=== PATIENT | male | born 1950 | race Caucasian/White ===

== ENCOUNTER 2020-10-03 12:38 | Outpatient (CLI) | payer MEDICARE, MEDICAID, SELFPAY ==
[2020-10-03 13:40] LABS: Basophils Absolute Auto 0.1 K/mm3 (0.0-0.1); Basophils Percent Auto 0.8 % (0.2-1.2); Eosinophils Absolute Auto 0.2 K/mm3 (0-0.3); Eosinophils Percent Auto 1.2 % (0-4.4); Hematocrit 36.1 % (42.0-52.0); Hemoglobin 11.5 g/dL (14.0-18.0); Immature Granulocyte Absolute 0.07 K/mm3 (0.00-0.031); Immature Granulocyte Percent A 0.5 % (0-0.5); Lymphocytes Absolute Auto 1.49 K/mm3 (0.9-3.2); Lymphocytes Percent Auto 11.4 % (18.3-44.2); Mean Corpuscular HGB Conc 31.9 g/dl (32-36); Mean Corpuscular Hemoglobin 29.7 pg (26-34); Mean Corpuscular Volume 93.3 fl (80-100); Mean Platelet Volume 10.5 fl (7.4-10.4); Monocytes Absolute Auto 0.9 K/mm3 (0.1-0.6); Monocytes Percent Auto 7.1 % (2.6-8.5); Neutrophils Absolute Auto 10.3 K/mm3 (1.3-6.7); Platelet Count Result 193 k/mm3 (150-375); Red Blood Count 3.87 M/mm3 (4.6-6.20); Red Cell Distribution Width 13.2 % (11.5-14.5)
[2020-10-03 14:41] LABS: Alanine Aminotransferase 19 U/L (4-50); Albumin Level 3.9 g/dL (3.5-5.1); Alkaline Phosphatase 97 U/L (38-126); Anion Gap 10 mmol/L (8-16); Aspartate Amino Transferase 24 U/L (17-59); Bilirubin,Total 0.2 mg/dL (0.2-1.3); Blood Urea Nitrogen 62 mg/dL (9-20); Carbon Dioxide 19 mmol/L (22-30); Chloride 110 mmol/L (98-107); Estimated Glomerular Filt Rate 17; Glucose 334 mg/dL (75-110); Sodium 139 mmol/L (137-145)
[2020-10-03 14:42] LABS: Potassium 5.8 mmol/L (3.4-5.0)
== END 2020-10-03 12:39 | disposition home or self-care (01) ==
PROVIDERS: PCP Family Medicine; Visit Provider Internal Medicine Cardiovascular Disease
DX: N17.9 Acute kidney failure, unspecified (principal); E11.22 Type 2 diabetes mellitus with diabetic chronic kidney disease; N18.4 Chronic kidney disease, stage 4 (severe)
CPT/HCPCS: 36415; 80053; 85025

== ENCOUNTER 2021-01-08 10:03 | Emergency (ER) | payer MEDICARE, MEDICAID, SELFPAY ==
--- NOTE | ~2021-01-08 | CT_ITS ---
EXAMINATION: CT brain wo con DATE: 01/08/2021 10:33 INDICATION: Confusion. Syncope. TECHNIQUE: Computed tomography (CT) of the head was performed without intravenous contrast. The mA wa s adjusted according to patient size. Iterative reconstruction technique was employed. The dose-lengt h product was 605.33 mGy-cm. COMPARISON: Head CT 03/25/2018 FINDINGS: There are scattered areas of low attenuation in the cerebral white matter. There is a subdu ral hematoma overlying right frontal and parietal lobes with maximum thickness of 9 mm. The hematoma is mixed hyperdense and hypodense relative to gage matter. There is a small focus of hyperdense acute subarachnoid hemorrhage in a medial left frontal lobe sulcus. There is a small volume of acute hyper dense extra-axial hematoma to the left of the frontal falx cerebri may be subdural or subarachnoid. T here is no acute ischemic infarct or abnormal mass lesion. The ventricles are normal in size. There i s dependent fluid in left maxillary sinus. There are likely changes of ocular lens replacement surger ies. The mastoid air cells are normal. IMPRESSION: 1. Acute versus subacute subdural hematoma overlying right frontal and parietal lobes with maximum th ickness of 9 mm. 2. Acute subarachnoid hemorrhage in a left parietal lobe sulcus. 3. Acute subdural versus subarachnoid hemorrhage to the left of the frontal falx. 4. Mild nonspecific cerebral white matter disease, which likely represents chronic small vessel ische yolis disease. 5. I discussed these results with Dr. Kaplan. Reviewed, dictated and finalized at location A. IMPRESSION: 1. Acute versus subacute subdural hematoma overlying right frontal and parietal lobes with maximum thickness of 9 mm. 2. Acute subarachnoid hemorrhage in a left parietal lobe sulcus. 3. Acute subdural versus subarachnoid hemorrhage to the left of the frontal fal x. 4. 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 5. I discussed these results with Dr. Kaplan.
--- NOTE | ~2021-01-08 | XR_ITS ---
EXAMINATION: XR chest 2V EXAM DATE: 01/08/2021 10:36 INDICATION: syncope/wheezing . TECHNIQUE: Frontal and lateral projections of the chest obtained and reviewed. Comparison is made to prior examination from 07/31/2018. FINDINGS: Sternotomy wires are present without findings to suggest sternal dehiscence. Valve replace ment probably aortic valve. No confluent consolidation, pneumothorax or pleural effusion suspected. T here are bony degenerative changes. IMPRESSION: No acute cardiopulmonary findings. Reviewed, dictated and finalized at location B.
[2021-01-08 09:54] VITALS: BP 160/80; PULSE 74; RESP 25; TEMP 36.6; O2SAT 95
--- NOTE | 2021-01-08 10:02 | ECG_ITS ---
Measurements Intervals [place] Rate: 74 P: 3 WI: 199 QRS: -15 QRSD: 149 T: 14 QT: 414 QTc: 460 Interpretive Statements SINUS RHYTHM LEFT BUNDLE BRANCH BLOCK BASELINE ARTIFACT- I, II, III, AVR, AVL, AVF, V1-V6 ABNORMAL ECG Electronically Signed On 01-08-2021 11:48:35 CDT by Everardo Malloy D.O.
[2021-01-08 10:12] VITALS: PULSE 74; RESP 21; O2SAT 97
--- NOTE | 2021-01-08 10:12 | PC.NURSE ---
BS 154 in ED
[2021-01-08 10:15] LABS: Glucose Point of Care 154 mg/dl (65-105)
[2021-01-08 10:53] VITALS: BP 153/94; PULSE 75; RESP 18; O2SAT 100
--- NOTE | 2021-01-08 10:55 | ED.AMS ---
HPI - Altered Mental Status General Chief Complaint: Altered Mental Status Stated Complaint: FALL Time Seen by Provider: 01/08/21 10:04 History of Present Illness HPI narrative: Patient is a 7-year-old male who presents ER after being found face down in his lawn. Patient was oriented x1 for EMS with normal Accu-Chek. Upon arrival here patient is awake alert and oriented x3. Reports he went to the grocery store to buy groceries and eat some candy bars. Unsure why he lost consciousness. Does not remember tripping or falling. No visible evidence of trauma to the head. He is not on any blood thinners outside of an aspirin. Denies nausea/vomiting/shortness of breath. No weakness in arm or leg. No change in vision Related Data Allergies Allergy/AdvReac Type Severity Reaction Status Date / Time No Known Allergies Allergy Unverified 03/25/18 02:28 Review of Systems Review of Systems: All systems reviewed & are unremarkable except as noted in HPI and below Constitutional: Constitutional: Denies chills, Denies fever(s) and Denies weakness Eyes: Eyes: Denies change in vision and Denies photophobia Cardiovascular: Cardiovascular: Denies chest pain, Denies rapid heart rate and Denies radiating jaw, neck or arm pain Respiratory: Respiratory: Denies cough and Denies dyspnea Gastrointestinal: Gastrointestinal: Denies abdominal pain, Denies nausea and Denies vomiting Neurologic: Denies dizziness, Reports syncope, Denies headache(s), Denies focal weakness and Denies numbness PMFSH Past Medical History Medical History (Updated 01/08/21 @ 16:56 by Baljeet Kaplan MD) Aortic aneurysm CHF (congestive heart failure) Diabetes Hypercholesterolemia Hypertension Surgical History Surgical History (Updated 01/08/21 @ 10:59 by Baljeet Kaplan MD) History of open heart surgery Social History Social History (Updated 01/08/21 @ 10:59 by Baljeet Kaplan MD) Substance use: never Gender identity (if verbalized by the patient): Male Exam Narrative: Exam Narrative: GENERAL: Well-appearing, well-nourished, and in no acute distress. HEAD: Normocephalic, atraumatic. EYES: PERRLA and EOMI. ENT: Mucous membranes moist. Moderate contusion to the tongue. CHEST: Clear to auscultation. No respiratory distress. HEART: Regular rate and rhythm. Normal peripheral pulses. ABDOMEN: Soft, nontender, nondistended EXTREMITIES: Normal range of motion. No edema. SKIN: Warm, dry, no rash. NEURO: No focal deficits. Alert and oriented x3. PSYCH: Normal mood and affect. Course Course Emergency Course: Accepted for transfer to [facility] for further treatment and care by neurosurgery. He has an inpatient bed. Patient stable. He did receive some fentanyl for low back pain and Zofran for nausea just prior to transfer. Vital Signs Vital signs: Vital Signs Temperature 97.8 F 01/08/21 09:54 Pulse Rate 74 01/08/21 09:54 Respiratory Rate 25 H 01/08/21 09:54 Blood Pressure 160/80 H 01/08/21 09:54 Pulse Oximetry 95 01/08/21 09:54 Temperature 97.8 F 01/08/21 09:54 Pulse Rate 67 01/08/21 12:53 Respiratory Rate 17 01/08/21 12:53 Blood Pressure 157/88 H 01/08/21 12:53 Pulse Oximetry 98 01/08/21 12:53 MDM - Altered Mental Status Lab Data Result diagrams: 01/08/21 10:59 01/08/21 10:59 Labs: Lab Results 01/08/21 01/08/21 01/08/21 Range/Units 10:11 10:59 10:59 WBC 10.8 H (4.5-10.0) K/mm3 RBC 3.56 L (4.6-6.20) M/mm3 Hgb 10.5 L (14.0-18.0) g/dL Hct 33.9 L (42.0-52.0) % MCV 95.2 (80-100) fl MCH 29.5 (26-34) pg MCHC 31.0 L (32-36) g/dl RDW 13.6 (11.5-14.5) % Plt Count 157 (150-375) k/mm3 MPV 9.9 (7.4-10.4) fl Immature Gran % (Auto) 1.6 H (0-0.5) % Neut % (Auto) 71.7 (45.5-73.1) % Lymph % (Auto) 14.0 L (18.3-44.2) % [place] % (Auto) 8.7 H (2.6-8.5) % Eos % (Auto) 3.2 (0-4.4) % Baso % (Auto) 0.8 (0.2-1
[2021-01-08 11:07] LABS: Basophils Absolute Auto 0.1 K/mm3 (0.0-0.1); Basophils Percent Auto 0.8 % (0.2-1.2); Eosinophils Absolute Auto 0.4 K/mm3 (0-0.3); Eosinophils Percent Auto 3.2 % (0-4.4); Hematocrit 33.9 % (42.0-52.0); Hemoglobin 10.5 g/dL (14.0-18.0); Immature Granulocyte Absolute 0.17 K/mm3 (0.00-0.031); Immature Granulocyte Percent A 1.6 % (0-0.5); Lymphocytes Absolute Auto 1.52 K/mm3 (0.9-3.2); Mean Corpuscular Hemoglobin 29.5 pg (26-34); Mean Corpuscular Volume 95.2 fl (80-100); Mean Platelet Volume 9.9 fl (7.4-10.4); Monocytes Absolute Auto 0.9 K/mm3 (0.1-0.6); Monocytes Percent Auto 8.7 % (2.6-8.5); Neutrophils Absolute Auto 7.8 K/mm3 (1.3-6.7); Neutrophils Percent Auto 71.7 % (45.5-73.1); Platelet Count Result 157 k/mm3 (150-375); Red Blood Count 3.56 M/mm3 (4.6-6.20); Red Cell Distribution Width 13.6 % (11.5-14.5); White Blood Count 10.8 K/mm3 (4.5-10.0)
[2021-01-08 11:17] LABS: Alanine Aminotransferase 30 U/L (4-50); Albumin Level 3.9 g/dL (3.5-5.1); Alkaline Phosphatase 100 U/L (38-126); Anion Gap 10 mmol/L (8-16); Aspartate Amino Transferase 48 U/L (17-59); Bilirubin,Total 0.3 mg/dL (0.2-1.3); Blood Urea Nitrogen 48 mg/dL (9-20); Calcium 9.1 mg/dL (8.4-10.2); Carbon Dioxide 18 mmol/L (22-30); Chloride 111 mmol/L (98-107); Estimated CRCL calculation 23 ml/min; Estimated Glomerular Filt Rate 20; Glucose 173 mg/dL (75-110); Potassium 5.8 mmol/L (3.4-5.0); Sodium 139 mmol/L (137-145)
[2021-01-08 11:18] LABS: INR 1.1; Prothrombin Time 14.1 Seconds (11.1-14.7)
[2021-01-08 11:19] LABS: Partial Thromboplastin Time 26.9 SECONDS (22.3-36.8)
[2021-01-08 11:55] VITALS: BP 133/75; PULSE 71; RESP 22; O2SAT 98
[2021-01-08 12:53] VITALS: BP 157/88; PULSE 67; RESP 17; RESP 26; O2SAT 98
[2021-01-08] MEDS: MORPHINE SULFATE (*CRX) 4 MG/ML INJ IV PUSH (13:01)
[2021-01-08] MEDS: ONDANSETRON INJ 4 MG/2 ML VIAL IV PUSH (14:01)
== END 2021-01-08 14:02 | disposition short-term general hospital (02) ==
LOC: ANHED 10:16
PROVIDERS: Emergency Provider Emergency Medicine; PCP Family Medicine
DX: I62.00 Nontraumatic subdural hemorrhage, unspecified (principal); I60.9 Nontraumatic subarachnoid hemorrhage, unspecified; I50.9 Heart failure, unspecified; E78.00 Pure hypercholesterolemia, unspecified; I10 Essential (primary) hypertension; E11.9 Type 2 diabetes mellitus without complications; R90.82 White matter disease, unspecified; Z79.82 Long term (current) use of aspirin; I44.7 Left bundle-branch block, unspecified
CPT/HCPCS: 36415; 70450; 71046; 80053; 82948; 85025; 85610; 85730; 93005; 96374; 96375; 99291; J2270; J2405

== ENCOUNTER 2021-04-03 11:23 | Outpatient (CLI) | payer MEDICARE, MEDICAID, SELFPAY ==
--- NOTE | ~2021-04-03 | XR_ITS ---
XR chest 2V DATE: 04/03/2021 11:50 INDICATION: Type 2 diabetes mellitus. Edema of both lower extremities. Chronic kidney stage IV. TECHNIQUE: PA and lateral views COMPARISON: 01/08/2021 2 view chest FINDINGS: Status post sternotomy and cardiac valve replacement. Heart size is within normal range. Is aortic arch calcification. No hilar or mediastinal enlargement. No pulmonary infiltrate or consolidation, pleural effusion or pulmonary vascular congestion or pneumo thorax. Diffuse idiopathic skeletal hyperostosis of the thoracic spine. Osteopenia. 2. Calcified faceted gallstones are noted. IMPRESSION: Status post cardiac valve replacement Aortic atherosclerosis No active pulmonary disease Cholelithiasis Reviewed, dictated and finalized at location B.
== END 2021-04-03 11:24 | disposition home or self-care (01) ==
LOC: ANHIMG 11:31
PROVIDERS: PCP Physician Assistant; Visit Provider Physician Assistant
DX: N18.4 Chronic kidney disease, stage 4 (severe) (principal); E11.22 Type 2 diabetes mellitus with diabetic chronic kidney disease; R60.0 Localized edema; Z95.2 Presence of prosthetic heart valve; I70.0 Atherosclerosis of aorta; K80.20 Calculus of gallbladder without cholecystitis without obstruction; M48.14 Ankylosing hyperostosis [Forestier], thoracic region
CPT/HCPCS: 71046

== ENCOUNTER 2021-04-10 18:08 | Inpatient (IN) | payer MEDICARE, MEDICAID, SELFPAY ==
[2021-04-10] VITALS (18 sets, daily range): BP systolic 119–149; BP diastolic 65–109; PULSE 75–101; RESP 16–24; TEMP 36.3–36.7; O2SAT 94–100; BMI 31.9
--- NOTE | ~2021-04-10 | XR_ITS ---
EXAMINATION: XR chest 2V EXAM DATE: 04/10/2021 18:54 INDICATION: SOB, HX SYNCOPE, CHF, HTN, DIABETIC . TECHNIQUE: Frontal and lateral projections of the chest obtained and reviewed. Comparison is made to prior examination from 04/03/2021. FINDINGS: Sternotomy, cardiac valve replacement. No confluent consolidation, pneumothorax or pleural effusion suspected. Couple peripherally calcified right upper quadrant densities probably gallstones . There are mild bony degenerative changes. IMPRESSION: No acute cardiopulmonary findings. Reviewed, dictated and finalized at location G.
--- NOTE | ~2021-04-10 | US_ITS ---
EXAMINATION: US renal BI DATE: 04/11/2021 12:53 INDICATION: Chronic kidney disease. TECHNIQUE: Multiple ultrasound grayscale images of the kidneys were obtained. COMPARISON: Ultrasound kidneys 10/21/2017 FINDINGS: The right kidney measures 9.4 x 5.4 x 5.6 cm. The left kidney measures 9.0 x 4.4 x 5.2 cm. The kidney s demonstrate normal parenchymal echogenicity. There is a 10 mm cyst in left kidney. There is no hydr onephrosis. The bladder is normal. IMPRESSION: 1. Normal kidney sizes. No hydronephrosis. Reviewed, dictated and finalized at location A.
--- NOTE | 2021-04-10 18:25 | ECG_ITS ---
Measurements Intervals [place] Rate: 90 P: 25 SD: 235 QRS: -21 QRSD: 140 T: 130 QT: 366 QTc: 448 Interpretive Statements SINUS RHYTHM WITH FIRST DEGREE AV BLOCK LEFT BUNDLE BRANCH BLOCK ABNORMAL ECG Electronically Signed On 04-10-2021 18:58:00 CDT by Everardo Malloy D.O.
[2021-04-10 18:48] LABS: Basophils Absolute Auto 0.1 K/mm3 (0.0-0.1); Eosinophils Absolute Auto 0.3 K/mm3 (0-0.3); Eosinophils Percent Auto 3.1 % (0-4.4); Hematocrit 33.7 % (42.0-52.0); Hemoglobin 10.6 g/dL (14.0-18.0); Immature Granulocyte Absolute 0.04 K/mm3 (0.00-0.031); Immature Granulocyte Percent A 0.4 % (0-0.5); Lymphocytes Absolute Auto 1.71 K/mm3 (0.9-3.2); Lymphocytes Percent Auto 16.1 % (18.3-44.2); Mean Corpuscular HGB Conc 31.5 g/dl (32-36); Mean Corpuscular Hemoglobin 30.5 pg (26-34); Mean Corpuscular Volume 96.8 fl (80-100); Mean Platelet Volume 9.7 fl (7.4-10.4); Monocytes Percent Auto 9.8 % (2.6-8.5); Neutrophils Absolute Auto 7.4 K/mm3 (1.3-6.7); Neutrophils Percent Auto 69.6 % (45.5-73.1); Platelet Count Result 182 k/mm3 (150-375); Red Blood Count 3.48 M/mm3 (4.6-6.20); Red Cell Distribution Width 13.5 % (11.5-14.5); White Blood Count 10.6 K/mm3 (4.5-10.0)
[2021-04-10 18:54] LABS: Anion Gap 11 mmol/L (8-16); Blood Urea Nitrogen 66 mg/dL (9-20); Calcium 9.1 mg/dL (8.4-10.2); Carbon Dioxide 25 mmol/L (22-30); Chloride 105 mmol/L (98-107); Estimated CRCL calculation 18 ml/min; Estimated Glomerular Filt Rate 15; Glucose 220 mg/dL (65-110); Potassium 4.9 mmol/L (3.4-5.0); Sodium 141 mmol/L (137-145)
--- NOTE | 2021-04-10 20:58 | PC.NURSE ---
Pt restarted on 20 mg lasix this week
--- NOTE | 2021-04-10 21:03 | PC.NURSE ---
Called lab to confirm they are adding on troponin and BNP
[2021-04-10 21:16] LABS: NT Pro B Type Natriuretic Pept 2480 pg/mL (5-100); Troponin I 0.068 ng/mL (0.000-0.034)
--- NOTE | 2021-04-10 21:26 | ED.GENADULT ---
HPI - General Adult General Chief complaint: Shortness of Breath/Dyspnea Stated complaint: diff breathing Time Seen by Provider: 04/10/21 20:33 Source: RN notes reviewed History of Present Illness HPI narrative: Patient presents emergency department from home for shortness of breath. Patient states that over the past 2 days has been feeling short of breath worse with activity and laying down flat he states that with this he has had associated swelling in his bilateral lower extremities patient states he has a history of chronic renal insufficiency and may need dialysis he is followed by Dr. Cedeño and was recently started on Lasix. He states there is plan to put a shot in his left upper arm he states he does have intermittent feelings of chest heaviness across his chest and feels like he cannot get comfortable he denies having any cough he denies any fevers or chills abdominal pain nausea vomiting or any other symptoms Related Data Allergies Allergy/AdvReac Type Severity Reaction Status Date / Time No Known Allergies Allergy Verified 04/10/21 20:55 Review of Systems Review of Systems: Gen.: Denies fevers or chills Eyes: Denies eye pain or visual change ENT: Denies congestion Respiratory: See HPI CV: Reports chest pain GI: Denies abdominal pain nausea, emesis or diarrhea reports chronic renal insufficiency Musculoskeletal: Denies back pain or muscle pain Neuro: Denies numbness, tingling, weakness or focal weakness Skin: Denies rash Except as documented, all other systems reviewed and negative [facility] Past Medical History Medical History Aortic aneurysm CHF (congestive heart failure) Diabetes Hypercholesterolemia Hypertension Surgical History Surgical History (Updated 01/08/21 @ 10:59 by Baljeet Kaplan MD) History of open heart surgery Social History Social History Substance use: never Gender identity (if verbalized by the patient): Male Exam Narrative: APPEARANCE: No acute distress, nontoxic, resting in bed EYES: EOMI HEENT: Normocephalic, atraumatic, OMM RESPIRATORY: No respiratory distress Clear to auscultation bilaterally with no rhonchi wheezing or rales. CARDIOVASCULAR: Regular rate and rhythm without murmurs rubs or gallops. ABDOMINAL: Soft, nontender, nondistended, no rebound or guarding MUSCULOSKELETAl: Moves all extremities. No clubbing, cyanosis 3+ edema the bilateral lower extremities bilateral dorsalis pedis pulse 2+ NEURO: Awake and alert. Following commands, speech normal, no focal deficits SKIN:: Warm, dry. No rashes lesions or abrasions PSYCHIATRIC: Normal affect/mood, Course Course Emergency Course: Reviewed old records Called and discussed with Dr. Sarah Cedeño presentation work-up agrees with consult at this time this time no further diuretics tonight patient be evaluated by nephrology in the a.m. Discussed Dr. Grigsby presentation work-up agrees with admission Discussed with patient and family results of workup and diagnosis. Discussed need for admission. Patient and family understand and agree to current treatment plan Vital Signs Vital signs: Vital Signs Temperature 98.0 F 04/10/21 18:26 Pulse Rate 101 H 04/10/21 18:26 Respiratory Rate 20 04/10/21 18:26 Blood Pressure 147/81 H 04/10/21 18:26 Pulse Oximetry 98 04/10/21 18:26 Temperature 98.0 F 04/10/21 18:26 Pulse Rate 82 04/10/21 20:56 Respiratory Rate 19 04/10/21 20:52 Blood Pressure 133/69 04/10/21 20:52 Pulse Oximetry 100 04/10/21 20:52 Medical Decision Making Vital Signs Vital Signs: Vital Signs Temperature 98.0 F 04/10/21 18:26 Pulse Rate 101 H 04/10/21 18:26 Respiratory Rate 20 04/10/21 18:26 Blood Pressure 147/81 H 04/10/21 18:26 Pulse Oximetry 98 04/10/21 18:26 Temperature 98.0 F 04/10/21 18:26 Pulse Rate 82 04/10/21 20:56 Respir
[2021-04-10] MEDS: ASPIRIN 81 MG CHEWABLE TABLET 324 MG PO (22:24)
--- NOTE | 2021-04-10 23:48 | ADMGEN ---
This patient, Chris Pavon, was admitted to IMU Room 207-01 on 04/10/21 at 2325. Patient/family oriented to hospital policies and general routines including ID bracelet, bed and alarms, visiting hours, pain management, procedures, bathroom and other care routines, personal items, smoking policy, room service/diet, and visiting hours. Information on how to activate the Rapid Response Team has been discussed. Patient/Family are encouraged to report perceived risks to care and to ask questions if they do not understand what they are told or what they should do.
[2021-04-11] VITALS (13 sets, daily range): BP systolic 117–153; BP diastolic 59–78; PULSE 75–89; RESP 18–22; TEMP 35.6–36.4; O2SAT 97–100
--- NOTE | 2021-04-11 | ECHO_ITS ---
Patient Info Name: Chris Pavon Age: 70 years : 1950 Gender: Male Ht: 68 in Wt: 210 lbs BSA: 2.17 m2 HR: 84 bpm BP: 153 / 67 mmHg Technical Quality: Fair Exam Date: 04/11/2021 11:21 AM Exam Location: [facility] Pulmonary Exam Room: [facility] Patient Status: Inpatient Admit Date: 04/11/2021 Staff Ordering Physician: Kellee Grigsby DO Pelt Dropper: Yeimi Garcia RDCS Attending Provider: Kellee Grigsby DO Referring Physician: Seb MORALES; Exam Type: CA echo doppler color flow Study Info Indications - LEG SWELLING JUAREZ CAD S/P AVR Complete two-dimensional, color flow and Doppler transthoracic echocardiogram is performed. Summary 1. Complete two-dimensional, color flow and Doppler transthoracic echocardiogram is performed. 2. Left ventricular chamber dimension is normal. 3. There is mildly increased left ventricular wall thickness. 4. Left ventricular systolic function is normal, estimated at 55-60%. 5. Left ventricular septal wall motion is abnormal with septal motion related to bundle branch block. 6. The left ventricular diastolic function is grade I diastolic dysfunction. 7. E/e' 14 is mildly elevated. 8. Left atrial chamber dimension is mildly enlarged. 9. The mechanical aortic valve is not well visualized. 10. There is mild mitral valve regurgitation. 11. There is trace tricuspid valve regurgitation. 12. No pulmonary hypertension, estimated pulmonary arterial systolic pressure is 34 mmHg. Left Ventricle E/e' 14 is mildly elevated. Left ventricular systolic function is normal, estimated at 55-60%. Left ventricular chamber dimension is normal. There is mildly increased left ventricular wall thickness. Left ventricular septal wall motion is abnormal with septal motion related to bundle branch block. The left ventricular diastolic function is grade I diastolic dysfunction. Right Ventricle Right ventricular chamber dimension is normal. Right ventricular systolic function is normal. Left Atria Left atrial chamber dimension is mildly enlarged. Right Atria Right atrial chamber dimension is normal. Aortic Valve The mechanical aortic valve is not well visualized. There is no sclerosis of the mechanical aortic valve leaflets. There is no regurgitation of the mechanical aortic valve. Pulmonic Valve There is no pulmonic regurgitation. Mitral Valve There is no mitral valve stenosis. There is mild mitral valve regurgitation. Tricuspid Valve There is trace tricuspid valve regurgitation. No pulmonary hypertension, estimated pulmonary arterial systolic pressure is 34 mmHg. Pericardium/Pleural There is no pericardial effusion. Inferior Vena Cava Normal inferior vena cava with >50% collapse upon inspiration consistent with normal right atrial pressure, 5 mmHg. Aorta The aortic root size at the sinus of Valsalva is normal. Left Ventricular Outflow Tract Name Value Normal LVOT 2D LVOT Diameter 2.1 cm LVOT Doppler LVOT Peak Gradient 8 mmHg LVOT Mean Gradient 6 mmHg LVOT VTI 36 cm
[2021-04-11 02:11] LABS: Troponin I 0.079 ng/mL (0.000-0.034)
--- NOTE | 2021-04-11 04:31 | PM.IMHP ---
H&P: HPI History of Present Illness Date/Time: 04/11/21 04:31 Chief Complaint: Shortness of breath, leg swelling Narrative: 70-year-old male with past medical history of insulin-dependent diabetes mellitus, hyperlipidemia, hypertension, coronary artery disease and chronic kidney disease stage 4 who presented to the ER with orthopnea, lower extremity edema and dyspnea on exertion. The patient reports that he has been having lower extremity swelling for approximately 1 week. He went in cell is primary care providers started on Lasix. He did have some increased urine output with the initiation of Lasix. The Lasix did not seem to help in his leg swelling. He has also been having associated abdominal distension for the last 10 days or so. He denies any abdominal pain. He has not had any changes in bowel habits. He has been having orthopnea. He had tried to go back to sleeping in a bed but could not get comfortable. He denies any chest pain or palpitations. He does have chronic kidney disease stage 4 was on temporary dialysis for 6 months in 2019. He follows with Dr. Austin Cedeño. He has been told that his kidney function was getting worse and that he may need to restart hemodialysis soon. He denies any dysuria, hematuria or difficulty with urinary stream. However he reports that he has been having difficulty urinating while lying in the bed at the hospital. He has had a history of strokes and some generalized weakness with is unchanged from baseline. He ambulates without assistance. He reports that his chest feels tight time to time. Sometimes the sensation occurs when he is at rest and sometimes it is with activity. He denies any cough, congestion, fevers or chills. He is vaccinated against COVID-19. He does not know if he wants the COVID booster. He did have a fall with subdural hematoma and subarachnoid hemorrhage January 2021. He was only on full-dose aspirin at the time of his subdural bleed. He has not had any further falls. He does snore but reports that everyone snores and he does not need to be evaluated for obstructive sleep apnea. He denies a history of CHF. He does follow with Dr. Jose Carter. He reports numbness and tingling of lower extremities for the last several weeks. He thinks that is due to his leg swelling. He has diabetes and states that his glucoses have been well controlled since he switched from Basaglar back to Lantus. His average glucoses have been in the 90s and low 100's. Review of Systems Review of Systems: 12 systems were reviewed with pertinent positives and negatives per HPI. Except as documented in the HPI, all other systems were reviewed and are negative. [facility] Past Medical History Medical History (Updated 04/11/21 @ 07:49 by Kellee Grigsby DO) Aortic aneurysm CHF (congestive heart failure) Chronic kidney disease, stage IV (severe) With history of temporary dialysis 2019 Coronary artery disease Diabetes Diabetic peripheral neuropathy GERD (gastroesophageal reflux disease) Hypercholesterolemia Hypertension Presbycusis of both ears Subdural hematoma (01/08/21) Acute versus subacute subdural hematoma right frontal and parietal lobes with acute subarachnoid hemorrhage of left parietal lobe sulcus, acute subdural versus subarachnoid hemorrhage left of the frontal falx Surgical History Surgical History (Updated 04/11/21 @ 07:25 by Kellee Grigsby DO) History of aortic valve replacement Bioprosthetic or tissue Hx of CABG (~2006) Three vessel CABG performed in [place] Status post cataract extraction of both eyes with insertion of intraocular lens Family History Family History Sibling Colon cancer Mother Cancer Social History Social History (Updated 04/11/21 @ 07:45 by Kellee Grigsby DO) Social History: He is and lives alone. He does not have any children. He is a lifelong nonsmoker and does not drink alcohol. He u
[2021-04-11 05:11] LABS: Basophils Absolute Auto 0.1 K/mm3 (0.0-0.1); Basophils Percent Auto 0.7 % (0.2-1.2); Eosinophils Absolute Auto 0.2 K/mm3 (0-0.3); Eosinophils Percent Auto 1.6 % (0-4.4); Hematocrit 35.3 % (42.0-52.0); Hemoglobin 10.7 g/dL (14.0-18.0); Immature Granulocyte Absolute 0.05 K/mm3 (0.00-0.031); Immature Granulocyte Percent A 0.4 % (0-0.5); Lymphocytes Absolute Auto 1.45 K/mm3 (0.9-3.2); Lymphocytes Percent Auto 11.6 % (18.3-44.2); Mean Corpuscular HGB Conc 30.3 g/dl (32-36); Mean Corpuscular Hemoglobin 30.5 pg (26-34); Mean Corpuscular Volume 100.6 fl (80-100); Mean Platelet Volume 10.6 fl (7.4-10.4); Monocytes Absolute Auto 1.1 K/mm3 (0.1-0.6); Monocytes Percent Auto 8.8 % (2.6-8.5); Neutrophils Absolute Auto 9.6 K/mm3 (1.3-6.7); Neutrophils Percent Auto 76.9 % (45.5-73.1); Platelet Count Result 192 k/mm3 (150-375); Red Blood Count 3.51 M/mm3 (4.6-6.20); Red Cell Distribution Width 13.5 % (11.5-14.5); White Blood Count 12.5 K/mm3 (4.5-10.0)
[2021-04-11 05:14] LABS: Anion Gap 9 mmol/L (8-16); Blood Urea Nitrogen 63 mg/dL (9-20); Carbon Dioxide 25 mmol/L (22-30); Chloride 106 mmol/L (98-107); Estimated CRCL calculation 17 ml/min; Estimated Glomerular Filt Rate 14; Glucose 216 mg/dL (65-110); Sodium 140 mmol/L (137-145)
--- NOTE | 2021-04-11 08:23 | PM.IMPN ---
Progress Note: A&P Additional Plan START OF DOCTOR DANY?S PROGRESS NOTE Subjective: The patient indicates that he present to the hospital because of generalized chest tightness and mild dyspnea. At the present time he offers no complaints. He denies fever, rigors, nausea, vomiting, cough, wheeze, abdominal pain, chest pain, dyspnea, palpitations, sensation rapid heartbeat, cessation irregular heartbeat. I have explained to the patient his current medical condition plan of care I have answered all questions Objective: General: -Alert -No acute distress -No dyspnea -No tachypnea -obese Heart: -Regular rate -Regular rhythm -No murmurs -No gallops -No rubs Lungs: -No wheeze -No rhonchi -No rales Abdomen: -Normal bowel sounds in all four quadrants -No rebound -No guarding -No tenderness Extremities: -2/4 pulse in all four extremities -No clubbing -No cyanosis -1+ to 2+ bipedal pitting edema to the lower calves Additional Details / Additional Findings / Exceptions / Miscellaneous: Pertinent Laboratory Results / Pertinent Radiology Results / Pertinent Diagnostic Results / Pertinent Vital Signs: Blood pressure 153/67, pulse 84, white blood count 12.5, hemoglobin 10.7, creatinine 4.1 Assessment / Plan: Chest pain, rule out ACS. Will monitor patient on telemetry and check serial cardiac enzymes. Echocardiogram pending. Aspirin 81 mg p.o. daily plus metoprolol XL 75 mg p.o. daily plus Imdur 30 mg p.o. daily plus Lipitor 40 mg p.o. q.h.s.. Although troponins are elevated, they are flattened this may represent false elevation secondary to acute on chronic kidney disease Chronic kidney disease. Creatinine at this document at this facility ranges from 3.1 to 6.1. Monitor renal function and serum electrolytes periodically. I will follow-up on nephrology is following recommendations. Bilateral renal ultrasound pending Diabetes. Will check fingerstick glucose q.a.c. and HS and provide insulin sliding scale plus insulin glargine 25 units subcutaneously b.i.d. Hyperlipidemia. Lipitor 40 mg p.o. q.h.s. Hypertension. Imdur 30 mg p.o. daily plus metoprolol XL 75 mg p.o. daily Coronary artery disease, status post CABG. Aspirin 81 mg p.o. daily plus metoprolol XL 75 mg p.o. daily plus Lipitor 40 mg p.o. q.h.s. plus Imdur 30 mg p.o. daily History of CVA. Aspirin 81 mg p.o. daily plus Lipitor 40 mg p.o. q.h.s. CHF. Metoprolol XL 75 mg p.o. daily. Echocardiogram pending Aortic aneurysm-site unspecified. Outpatient monitoring with his primary care physician Neuropathy GERD History of bioprosthetic aortic valve replacement Obesity. Patient counseled regarding lifestyle modification Macrocytic anemia. Will monitor hemoglobin level intermittently. Check TSH, free T4, B12, folate, ferritin, iron panel, fecal occult blood DVT prophylaxis. Bilateral CT Disposition: END OF DOCTOR DANY?S PROGRESS NOTE Subjective Date/time seen: 04/11/21 08:23 Objective Data Vital Signs Vital Signs: Vital Signs - 24 hr 04/10/21 18:26 04/10/21 20:22 04/10/21 20:25 Temperature 98.0 F Pulse Rate 101 H 88 85 Respiratory Rate 20 20 23 H Blood Pressure 147/81 H 127/75 Pulse Oximetry 98 94 100 04/10/21 20:50 04/10/21 20:52 04/10/21 20:56 Temperature Pulse Rate 82 84 82 Respiratory Rate 22 H 19 Blood Pressure 133/69 133/69 Pulse Oximetry 98 100 04/10/21 21:40 04/10/21 21:45 04/10/21 22:25 Temperature Pulse Rate 82 80 82 Respiratory Rate 23 H 19 16 Blood Pressure 119/65 Pulse Oximetry 96 100 100 04/10/21 22:36 04/10/21 22:45 04/10/21 23:00 Temperature Pulse Rate 79 75 76 Respiratory Rate 23 H 19 24 H Blood Pressure 131/85 Pulse Oximetry 99 100 04/10/21 23:01 04/10/21 23:02 04/10/21 23:04 Temperature Pulse Rate 76 77 75 Respiratory Rate 19 23 H 24 H Blood Pressure 131/109 H Pulse Oximetry 100 100 100 04/10/21 23:31 10
[2021-04-11 08:37] LABS: Glucose Point of Care 164 mg/dl (65-105)
[2021-04-11] MEDS: ISOSORBIDE MONONITRATE 30 MG TAB.ER.24H PO (09:08)
[2021-04-11] MEDS: CHOLECALCIFEROL 1,000 UNITS TABLET 5000 UNITS PO (09:08)
[2021-04-11] MEDS: ATORVASTATIN 40 MG TABLET PO (09:08)
[2021-04-11] MEDS: INSULIN GLARGINE (*BKC) 100 UNITS/ML 25 UNITS SUB-Q ×2 (09:14→18:09)
[2021-04-11 09:32] LABS: Free T4 Free Thyroxine 1.03 ng/mL (0.78-2.19)
[2021-04-11 09:35] LABS: Iron 85 ug/dL (49-181); Percent Iron Saturation 37 % (20-50)
[2021-04-11] MEDS: METOPROLOL SUCCINATE EXT REL 25 MG TABCR 75 MG PO (09:39)
[2021-04-11 10:15] LABS: Folic Acid 7.2 ng/mL (2.76->20)
--- NOTE | 2021-04-11 10:30 | PM.CNNEP ---
Assessment and Plan Assessment and plan (1) Chronic kidney disease, stage IV (severe): Code(s): N18.4 - Chronic kidney disease, stage 4 (severe) Status: Acute Assessment and Plan: The patient has stage 4 chronic kidney disease. His GFR is relatively stable over the last couple of months. Since his GFR is in the teens, he will need access placed. He does not have any uremic symptoms. He is eating well, mental status is good,. Fluid is becoming a problem. However right now he does not really have very much swelling. He was on Lasix 20mg a day only and this did improve his swelling he told me in the office. So I think we can continue this dose and watch his creatinine. Because his lungs are clear on exam and on chest x-ray we do not need to try too hard to get rid of all the swelling because it may just make his creatinine worse sooner. So I think that a little bit of swelling would be okay and then once he is on dialysis we could work on it then. (2) Congestive heart failure: Qualifiers: Heart failure chronicity: unspecified Heart failure type: unspecified Qualified Code(s): I50.9 - Heart failure, unspecified Code(s): I50.9 - Heart failure, unspecified Status: Acute Assessment and Plan: He carries a diagnosis of congestive heart failure. I will try to find an echo from the past. (3) Elevated troponin: Code(s): R77.8 - Other specified abnormalities of plasma proteins Status: Acute Assessment and Plan: His troponins are mildly elevated and relatively flat. This may be from the kidneys but hospitalist is ruling out cardiac etiology as well. (4) Hypertension: Code(s): I10 - Essential (primary) hypertension Status: Inactive Assessment and Plan: His blood pressure is doing pretty well in the 140s. (5) Diabetes mellitus with hyperglycemia, with long-term current use of insulin: Qualifiers: Diabetes mellitus type: type 2 Qualified Code(s): E11.65 - Type 2 diabetes mellitus with hyperglycemia; Z79.4 - termite control technician (current) use of insulin Code(s): E11.65 - Type 2 diabetes mellitus with hyperglycemia; Z79.4 - termite control technician (current) use of insulin Status: Acute Assessment and Plan: He is on Accu-Cheks and sliding-scale insulin History of Present Illness Reason for Consult Consult date: 04/11/21 Chief Complaint Chief complaint: Elevated troponin, Acute on Chronic Renal Insuffic History of Present Illness Narrative: Chris is a very pleasant 70-year-old gentleman who has multiple medical problems including diabetes, hypertension, chronic kidney disease stage 5, vitamin-D deficiency, hyperlipidemia, anemia, subdural hematoma in January of this year, coronary disease, congestive heart failure, staph infection. The patient had an episode of acute kidney injury in the past and required dialysis for a few months. He used a dialysis PermCath for access. This became infected and so was treated and removed. Eventually the patient recovered kidney function was able to come off dialysis. Lately the patient has had problems with swelling. He saw his primary care physician who gave him some diuretics. 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 I saw him for the 1st time earlier this week. Patient did not like the 2 dialysis units he was using for his dialysis before. After long discussion I advised him to to her the various dialysis units in the area and he liked to be to [place] the most. He knows that he has to have dialysis access placed. Preferably would be good to have the fistula ready before he needs dialysis because he has already had 1 staph infection from a catheter. So he realizes that he needs to get a fistula right away and so he is going to call the surgeon he used in [place], Dr. Mobley, for access placement. I advised him to call today to get an appointme
[2021-04-11 10:57] LABS: Parathyroid Intact 241.1 pg/mL (7.5-53.5)
[2021-04-11 12:26] LABS: Troponin I 0.055 ng/mL (0.000-0.034)
[2021-04-11 12:43] LABS: Glucose Point of Care 144 mg/dl (65-105)
[2021-04-11] MEDS: FUROSEMIDE 20 MG TABLET PO (13:17)
--- NOTE | 2021-04-11 13:20 | PCCCNOTE ---
On 04/11/21, the student, [Darlin Card ], provided care and [facility] this patient. I have reviewed the student's documentation and agree with the findings.
[2021-04-11 16:48] LABS: Glucose Point of Care 213 mg/dl (65-105)
[2021-04-11] MEDS: FLUTICASONE PROPIONATE 0.05% NA SPR 16 GM BTL (*BKC) 2 SPRAY NASAL (18:09)
[2021-04-11] MEDS: INSULIN ASPART (*BKC) 100 UNITS/ML SUB-Q (18:09)
--- NOTE | 2021-04-11 19:18 | PC.NURSE ---
While in patient's room today, patient stated that he felt like we were only drawing labs and treating him for money. This nurse stated to the patient that this hospital stay is about the patient, and it has nothing to do with money. He stated he just wanted to let us know that he thinks this is all pointless. Patient has been very argumentative this shift with multiple coworkers on multiple different topics. Care coordination had a lengthy discussion about finances this morning.
[2021-04-11 21:55] LABS: Glucose Point of Care 165 mg/dl (65-105)
[2021-04-12 03:33] LABS: IFOB Positive Control Positive; Immunochemical Fecal Occult Bl Negative (N)
[2021-04-12 04:00] VITALS: BP 137/77; PULSE 60; RESP 16; TEMP 36; O2SAT 100
--- NOTE | 2021-04-12 05:00 | ECG_ITS ---
Measurements Intervals Bailey Rate: 75 P: WI: 0 QRS: -18 QRSD: 124 T: 109 QT: 399 QTc: 447 Interpretive Statements SINUS RHYTHM WITH FIRST DEGREE AV BLOCK LEFT BUNDLE BRANCH BLOCK BASELINE ARTIFACT- I, III, AVR, AVL, V3-V6 ABNORMAL ECG Electronically Signed On 04-12-2021 8:25:17 CDT by Everardo Malloy D.O.
[2021-04-12 05:46] LABS: Basophils Absolute Auto 0.1 K/mm3 (0.0-0.1); Basophils Percent Auto 0.6 % (0.2-1.2); Eosinophils Absolute Auto 0.4 K/mm3 (0-0.3); Eosinophils Percent Auto 3.3 % (0-4.4); Hematocrit 33.6 % (42.0-52.0); Hemoglobin 10.7 g/dL (14.0-18.0); Immature Granulocyte Absolute 0.05 K/mm3 (0.00-0.031); Immature Granulocyte Percent A 0.4 % (0-0.5); Lymphocytes Percent Auto 14.4 % (18.3-44.2); Mean Corpuscular HGB Conc 31.8 g/dl (32-36); Mean Corpuscular Hemoglobin 30.6 pg (26-34); Mean Platelet Volume 10.2 fl (7.4-10.4); Monocytes Absolute Auto 1.2 K/mm3 (0.1-0.6); Monocytes Percent Auto 10.5 % (2.6-8.5); Neutrophils Absolute Auto 7.9 K/mm3 (1.3-6.7); Neutrophils Percent Auto 70.8 % (45.5-73.1); Platelet Count Result 185 k/mm3 (150-375); Red Cell Distribution Width 13.4 % (11.5-14.5); White Blood Count 11.1 K/mm3 (4.5-10.0)
[2021-04-12 06:10] LABS: Anion Gap 9 mmol/L (8-16); Blood Urea Nitrogen 66 mg/dL (9-20); Calcium 8.8 mg/dL (8.4-10.2); Carbon Dioxide 26 mmol/L (22-30); Chloride 105 mmol/L (98-107); Estimated CRCL calculation 17 ml/min; Estimated Glomerular Filt Rate 14; Glucose 173 mg/dL (65-110); Magnesium 1.6 mg/dL (1.6-2.3); Phosphorus 5.4 mg/dL (2.5-4.5); Potassium 4.8 mmol/L (3.4-5.0); Sodium 140 mmol/L (137-145)
--- NOTE | 2021-04-12 07:31 | PM.IMPN ---
Progress Note: A&P Additional Plan START OF DOCTOR DANY?S PROGRESS NOTE Subjective: The patient complains about superfluous details including his coffee and the comfort of his mattress. However he denies any physical complaints. He denies fever, rigors, nausea, vomiting, cough, wheeze, abdominal pain, chest pain, dyspnea. He indicates that the edema in his legs has improved. I have explained to the patient his current medical condition plan of care and I have answered all his questions Objective: General: -Alert -No acute distress -No dyspnea -No tachypnea -obese Heart: -Regular rate -Regular rhythm -No murmurs -No gallops -No rubs Lungs: -No wheeze -No rhonchi -No rales Abdomen: -Normal bowel sounds in all four quadrants -No rebound -No guarding -No tenderness Extremities: -2/4 pulse in all four extremities -No clubbing -No cyanosis -1+ to 2+ bipedal pitting edema to the lower calves Additional Details / Additional Findings / Exceptions / Miscellaneous: Pertinent Laboratory Results / Pertinent Radiology Results / Pertinent Diagnostic Results / Pertinent Vital Signs: White blood cell count 11.1, hemoglobin 10.7, creatinine 4.2, phosphorus 5.4 Assessment / Plan: Chest pain, rule out ACS. Will monitor patient on telemetry and check serial cardiac enzymes. Echocardiogram unremarkable. Aspirin 81 mg p.o. daily plus metoprolol XL 75 mg p.o. daily plus Imdur 30 mg p.o. daily plus Lipitor 40 mg p.o. q.h.s.. Although troponins are elevated, they are flattened this may represent false elevation secondary to acute on chronic kidney disease Chronic kidney disease. Creatinine at this document at this facility ranges from 3.1 to 6.1. Monitor renal function and serum electrolytes periodically. I will follow-up on nephrology is following recommendations. Bilateral renal ultrasound unremarkable. Albumin 50 g IV q.8 hours Hyperparathyroidism Hyperphosphatemia Diabetes. Will check fingerstick glucose q.a.c. and HS and provide insulin sliding scale plus insulin glargine 25 units subcutaneously b.i.d. Hyperlipidemia. Lipitor 40 mg p.o. q.h.s. Hypertension. Imdur 30 mg p.o. daily plus metoprolol XL 75 mg p.o. daily plus Lasix 20 mg p.o. daily will closely monitor creatinine Coronary artery disease, status post CABG. Aspirin 81 mg p.o. daily plus metoprolol XL 75 mg p.o. daily plus Lipitor 40 mg p.o. q.h.s. plus Imdur 30 mg p.o. daily History of CVA. Aspirin 81 mg p.o. daily plus Lipitor 40 mg p.o. q.h.s. Aortic aneurysm-site unspecified. Outpatient monitoring with his primary care physician Neuropathy GERD History of bioprosthetic aortic valve replacement Obesity. Patient counseled regarding lifestyle modification Macrocytic anemia. Will monitor hemoglobin level intermittently. DVT prophylaxis. Bilateral CT Disposition: I will wait reassessment by Nephrology to determine whether the patient may potentially be discharged on this day of April 12, 2021 END OF DOCTOR DANY?S PROGRESS NOTE Subjective Date/time seen: 04/12/21 07:31 Objective Data Vital Signs Vital Signs: Vital Signs - 24 hr 04/11/21 08:00 04/11/21 08:37 04/11/21 10:00 Temperature 96.1 F L Pulse Rate 79 83 87 Respiratory Rate 22 H Blood Pressure 143/78 H Pulse Oximetry 98 04/11/21 12:00 04/11/21 12:52 04/11/21 14:00 Temperature 96.7 F L Pulse Rate 77 79 88 Respiratory Rate 22 H Blood Pressure 125/68 Pulse Oximetry 97 04/11/21 17:10 04/11/21 20:00 04/12/21 04:00 Temperature 96.0 F L 97.5 F L 96.8 F L Pulse Rate 80 75 60 Respiratory Rate 22 H 18 16 Blood Pressure 117/77 120/59 L 137/77 Pulse Oximetry 99 100 100 Intake/Output Intake/Output: Intake & Output 04/09/21 04/10/21 04/11/21 04/12/21 23:59 23:59 23:59 23:59 Intake Total 1520 500 Output Total 300 Balance 1220 500 Meds/Results Medications: Active Medications Generic Name
[2021-04-12 08:23] LABS: Glucose Point of Care 96 mg/dl (65-105)
[2021-04-12 08:47] VITALS: BP 125/84; PULSE 82; RESP 16; O2SAT 100
[2021-04-12] MEDS: METOPROLOL SUCCINATE EXT REL 25 MG TABCR 75 MG PO (08:47)
[2021-04-12] MEDS: ASPIRIN 81 MG CHEWABLE TABLET PO (08:48)
[2021-04-12] MEDS: CHOLECALCIFEROL 1,000 UNITS TABLET 5000 UNITS PO (08:48)
[2021-04-12] MEDS: ATORVASTATIN 40 MG TABLET PO (08:48)
[2021-04-12] MEDS: ISOSORBIDE MONONITRATE 30 MG TAB.ER.24H PO (08:48)
[2021-04-12] MEDS: FUROSEMIDE 20 MG TABLET PO (08:48)
[2021-04-12] MEDS: INSULIN GLARGINE (*BKC) 100 UNITS/ML 25 UNITS SUB-Q (08:49)
[2021-04-12] MEDS: FLUTICASONE PROPIONATE 0.05% NA SPR 16 GM BTL (*BKC) 2 SPRAY NASAL (08:49)
--- NOTE | 2021-04-12 10:53 | PM.PNNEP ---
Progress Note: A&P Assessment and Plan (1) Chronic kidney disease, stage IV (severe): Code(s): N18.4 - Chronic kidney disease, stage 4 (severe) Status: Acute Assessment and Plan: The patient has stage 4 chronic kidney disease. His GFR is relatively stable over the last couple of months. Baseline creatinine seems to be around 4-4.2. He does not have any uremic symptoms. He says that is not want to get his fistula placed right away. He says ?my kidneys are doing fine?. I talked to him at length about his situation. He is going to need dialysis sometime in the next few months. He should have a fistula ready or else if he needs dialysis he will need a catheter. He is already had 1 of these and he got an infection from that. After further discussion he decided he would go ahead but the fistula. I called the nurse with the phone number for Dr. Mobley but unfortunately she did not give this to him. I gave it to him this morning and it turns out that he had it in his phone after all. He says he will call on Wednesday. (2) Congestive heart failure: Qualifiers: Heart failure chronicity: unspecified Heart failure type: unspecified Qualified Code(s): I50.9 - Heart failure, unspecified Code(s): I50.9 - Heart failure, unspecified Status: Acute Assessment and Plan: He carries a diagnosis of congestive heart failure. I will try to find an echo from the past. (3) Elevated troponin: Code(s): R77.8 - Other specified abnormalities of plasma proteins Status: Acute Assessment and Plan: His troponins are mildly elevated and relatively flat. His echo was normal. (4) Hypertension: Code(s): I10 - Essential (primary) hypertension Status: Inactive Assessment and Plan: His blood pressure is doing pretty well ranging from 120-140 (5) Diabetes mellitus with hyperglycemia, with long-term current use of insulin: Qualifiers: Diabetes mellitus type: type 2 Qualified Code(s): E11.65 - Type 2 diabetes mellitus with hyperglycemia; Z79.4 - rodent exterminator (current) use of insulin Code(s): E11.65 - Type 2 diabetes mellitus with hyperglycemia; Z79.4 - USP (current) use of insulin Status: Acute Assessment and Plan: He is on Accu-Cheks and sliding-scale insulin Subjective Date/time seen: 04/12/21 10:53 Interval history: The patient has no chest pain or shortness of breath. ?I am never coming back to this hospital again? He did not like the bed he was given last night when he transferred up to the 3rd floor. Review of Systems Cardiovascular: Cardiovascular: Reports no additional cardiovascular complaints Respiratory: Respiratory: Reports no additional respiratory complaints Gastrointestinal: Gastrointestinal: Reports no additional gastrointestinal complaints Genitourinary: Genitourinary: Reports no additional male genitourinary complaints Exam Narrative: WDWN in NAD skin no rash head ncat lungs clear cor reg no rub abd BS+ nontender and soft ext 1+ edema. Objective Data Vital Signs Vital Signs: Vital Signs - 24 hr 04/11/21 12:00 04/11/21 12:52 04/11/21 14:00 Temperature 35.9 C L Pulse Rate 77 79 88 Respiratory Rate 22 H Blood Pressure 125/68 Pulse Oximetry 97 04/11/21 17:10 04/11/21 20:00 04/12/21 04:00 Temperature 35.6 C L 36.4 C L 36.0 C L Pulse Rate 80 75 60 Respiratory Rate 22 H 18 16 Blood Pressure 117/77 120/59 L 137/77 Pulse Oximetry 99 100 100 04/12/21 08:47 Temperature Pulse Rate 82 Respiratory Rate 16 Blood Pressure 125/84 Pulse Oximetry 100 Intake/Output Intake/Output: Intake & Output 04/09/21 04/10/21 04/11/21 04/12/21 23:59 23:59 23:59 23:59 Intake Total 1520 980 Output Total 300 Balance 1220 980 Meds/Results Medications: Active Medications Generic Name Dose Route Start Last Admin Trade Name Freq PRN Reason Stop Dose Admin Aspi
[2021-04-12 11:38] LABS: Glucose Point of Care 179 mg/dl (65-105)
--- NOTE | 2021-04-12 11:53 | PM.DS ---
DS: Admitting Diagnosis Discharge Date 11:56 a.m. on April 12, 2021 Admitting Diagnosis Chest pain, ACS ruled out DS: Summary Hospital Course Hospital Course: See discharge summary below Time Spent with Patient Time attestation: Total time spent providing and/or coordinating discharge services: START OF DOCTOR DANY?S DISCHARGE SUMMARY Date of Admission: April 11, 2021 Date of Discharge: 11:54 a.m. on April 12, 2021 Primary Diagnosis: Chest pain, ACS ruled out Secondary Diagnosis: Chronic kidney disease. Uncertain baseline however at this facility it ranges from 3.1 to 6.1 Hyperparathyroidism Hyperphosphatemia Diabetes Hyperlipidemia Hypertension Coronary artery disease, status post CABG History of CVA Air aortic aneurysm-site unspecified Neuropathy GERD History of bioprosthetic aortic valve replacement Obesity Macrocytic anemia Consultations: Nephrology Disposition: The patient will be advised follow-up with his primary care physician 2 weeks post discharge for post hospitalization evaluation. He is to monitor his aortic aneurysm-site unspecified with his primary care physician The patient is advised follow-up with Nephrology as directed The patient will require check a BMP 1 week post discharge for diagnosis of chronic kidney disease Discharge Medications: Lasix 20 mg p.o. daily Amaryl 4 mg p.o. daily Lipitor 40 mg p.o. q.h.s. Vitamin-D 5000 IU p.o. daily Lantus 25 units subcutaneously q.12 hours Imdur 30 mg p.o. daily Metoprolol XL 75 mg p.o. daily Aspirin 81 mg p.o. daily END OF DOCTOR DANY?S DISCHARGE SUMMARY DS: Data Data Completed and Pending Labs on day of discharge: Labs from last 24 hours 04/12/21 04/12/21 04/12/21 11:35 08:07 05:14 WBC RBC Hgb Hct MCV MCH MCHC RDW Plt Count MPV Immature Gran % (Auto) Neut % (Auto) Lymph % (Auto) Schuyler % (Auto) Eos % (Auto) Baso % (Auto) Lymph # (Auto) Schuyler # (Auto) Eos # (Auto) Baso # (Auto) Abs Immat Gran (auto) Absolute Neuts (auto) Absolute Nucleated RBC Nucleated RBC % Sodium 140 Potassium 4.8 Chloride 105 Carbon Dioxide 26 Anion Gap 9 BUN 66 H Creatinine 4.20 H Estim Creat Clear Calc 17 Estimated GFR 14 L Glucose 173 H POC Capillary Glucose 179 H 96 Calcium 8.8 Phosphorus 5.4 H Magnesium 1.6 Troponin I Stl Occult Blood (IFOB) 04/12/21 04/12/21 04/11/21 05:14 02:34 20:14 WBC 11.1 H RBC 3.50 L Hgb 10.7 L Hct 33.6 L MCV 96.0 MCH 30.6 MCHC 31.8 L RDW 13.4 Plt Count 185 MPV 10.2 Immature Gran % (Auto) 0.4 Neut % (Auto) 70.8 Lymph % (Auto) 14.4 L Schuyler % (Auto) 10.5 H Eos % (Auto) 3.3 Baso % (Auto) 0.6 Lymph # (Auto) 1.60 Schuyler # (Auto) 1.2 H Eos # (Auto) 0.4 H Baso # (Auto) 0.1 Abs Immat Gran (auto) 0.05 H Absolute Neuts (auto) 7.9 H Absolute Nucleated RBC 0.0 Nucleated RBC % 0.0 Sodium Potassium Chloride Carbon Dioxide Anion Gap BUN Creatinine Estim Creat Clear Calc Estimated GFR Glucose POC Capillary Glucose 165 H Calcium Phosphorus Magnesium Troponin I Stl Occult Blood (IFOB) Negative 04/11/21 04/11/21 04/11/21 17:27 16:24 12:13 WBC RBC Hgb Hct MCV MCH MCHC RDW Plt Count MPV Immature Gran % (Auto) Neut % (Auto) Lymph % (Auto) Schuyler % (Auto) Eos % (Auto) Baso % (Auto) Lymph # (Auto) Schuyler # (Auto) Eos # (Auto) Baso # (Auto) Abs Immat Gran (auto) Absolute Neuts (auto) Absolute Nucleated RBC Nucleated RBC % Sodium Potassium Chloride Carbon Dioxide Anion Gap BUN Creatinine Estim Creat Clear Calc Estimated GFR Glucose POC Capillary Glucose 213 H 14
== END 2021-04-12 14:40 | disposition home or self-care (01) | DRG 292 ==
LOC: ANHED 22:14 → ANHIMU 22:46 → ANH3MED 04-12 11:53 → ANHIMU 04-14 12:45
PROVIDERS: Admitting Provider Internal Medicine; Emergency Provider Emergency Medicine; PCP Physician Assistant; Visit Provider Internal Medicine
DX: I13.2 Hypertensive heart and chronic kidney disease with heart failure and with stage 5 chronic kidney disease, or end stage renal disease (principal); N18.5 Chronic kidney disease, stage 5; I50.9 Heart failure, unspecified; R07.9 Chest pain, unspecified; E11.22 Type 2 diabetes mellitus with diabetic chronic kidney disease; E11.42 Type 2 diabetes mellitus with diabetic polyneuropathy; E11.65 Type 2 diabetes mellitus with hyperglycemia; E21.3 Hyperparathyroidism, unspecified; I25.10 Atherosclerotic heart disease of native coronary artery without angina pectoris; K21.9 Gastro-esophageal reflux disease without esophagitis; D53.9 Nutritional anemia, unspecified; E66.9 Obesity, unspecified; E78.5 Hyperlipidemia, unspecified; R79.89 Other specified abnormal findings of blood chemistry; I71.9 Aortic aneurysm of unspecified site, without rupture; Z86.73 Personal history of transient ischemic attack (TIA), and cerebral infarction without residual deficits; Z95.2 Presence of prosthetic heart valve; Z68.32 Body mass index [BMI] 32.0-32.9, adult; Z95.1 Presence of aortocoronary bypass graft; Z79.4 Long term (current) use of insulin
CPT/HCPCS: 36415; 71046; 76775; 80048; 82274; 82607; 82728; 82746; 82948; 83540; 83550; 83735; 83880; 83970; 84100; 84439; 84443; 84484; 85025; 93005; 93306; 99285; A9270; G0378; J1815

== ENCOUNTER 2021-09-30 08:36 | Emergency (ER) | payer MEDICARE, MEDICAID, SELFPAY ==
[2021-09-30] VITALS (44 sets, daily range): BP systolic 98–180; BP diastolic 58–92; PULSE 77–99; RESP 13–24; TEMP 36.6; O2SAT 90–100
--- NOTE | ~2021-09-30 | XR_ITS ---
EXAMINATION: XR shoulder LT min 2V DATE: 09/30/2021 09:33 INDICATION: Left shoulder injury. Left upper arm pain. TECHNIQUE: 3 views of left shoulder were obtained. COMPARISON: None. FINDINGS: There is an oblique fracture of surgical neck of proximal left humerus. The distal fracture fragment demonstrates 11 mm lateral displacement, 6 mm anterior displacement, and 17 degrees posteri or angulation. There is mild osteoarthritis of glenohumeral joint and severe osteoarthritis of acromi oclavicular joint. There are changes of heart valve replacement. There is an old healed fracture of l eft sixth rib. IMPRESSION: 1. Two-part fracture of proximal left humerus. 2. Polyarticular osteoarthritis. Reviewed, dictated and finalized at location A.
--- NOTE | ~2021-09-30 | XR_ITS ---
EXAMINATION: XR hip LT 2V w AP pelvis DATE: 09/30/2021 09:33 INDICATION: Left hip pain. Fall. TECHNIQUE: An anteroposterior view of the pelvis and 2 views of left hip were obtained. COMPARISON: None. FINDINGS: Bone alignment is normal. There is a basicervical fracture of proximal left femur in near-a natomic alignment. There is moderate osteoarthritis of the hips. There is mild lumbar spondylosis. IMPRESSION: 1. Basicervical fracture of proximal left femur in near-anatomic alignment. 2. Moderate osteoarthritis of the hips. Reviewed, dictated and finalized at location A.
--- NOTE | 2021-09-30 08:59 | ED.FALL ---
HPI - Fall General Chief Complaint: Fall Stated Complaint: fall Time Seen by Provider: 09/30/21 08:47 Source: patient Mode of arrival: EMS Limitations: no limitations History of Present Illness HPI Narrative: Patient is a 71-year-old male brought in by EMS complaining of left shoulder and left hip pain, 7 out of 10, dull, aching, worse with palpation and movement after he slipped and fell while going the bathroom prior to arrival. Patient states that forward slippery, he was not wearing socks and that is why he slipped and fell. Patient denies any symptoms prior to the fall. Patient denies any head, neck, chest, abdomen, back or any other extremity pain/injury. Patient denies any loss of consciousness. Patient states that he recently injured his right shoulder, dislocated it 3 weeks ago. Patient is at the assisted for rehab. Related Data Home Medications Medication Instructions Recorded Confirmed Lantus Solostar U-100 Insulin 25 unit SUBCUT BID 04/10/21 04/11/21 atorvastatin 40 mg PO DAILY 04/10/21 04/11/21 cholecalciferol (vitamin D3) 5,000 unit PO DAILY 04/10/21 04/11/21 [Vitamin D3] furosemide 20 mg PO DAILY 04/10/21 04/11/21 glimepiride 4 mg PO DAILY 04/10/21 04/11/21 isosorbide mononitrate 30 mg PO DAILY 04/10/21 04/11/21 Allergies Allergy/AdvReac Type Severity Reaction Status Date / Time No Known Allergies Allergy Verified 09/30/21 08:51 Review of Systems Review of Systems: All systems reviewed & are unremarkable except as noted in HPI and below Constitutional: Constitutional: Denies body ache(s), Denies chills, Denies excessive sweating, Denies fatigue, Denies fever(s), Denies headache(s), Denies lethargy, Denies malaise, Denies weakness and Denies weight loss Eyes: Eyes: Denies blurry vision, Denies change in vision and Denies loss of vision ENT: Denies dizziness, Denies ear discharge, Denies headache(s), Denies lip swelling, Denies epistaxis, Denies nasal congestion, Denies neck pain, Denies throat swelling and Denies tongue swelling Cardiovascular: Cardiovascular: Denies chest pain, Denies chest pain at rest, Denies chest pain with activity, Denies diaphoresis, Denies rapid heart rate, Denies edema, Denies irregular heart rhythm, Denies lightheadedness, Denies palpitations, Denies dyspnea and Denies dyspnea on exertion Respiratory: Respiratory: Denies chest congestion, Denies cough, Denies hemoptysis, Denies dyspnea and Denies dyspnea on exertion Gastrointestinal: Gastrointestinal: Denies abdominal pain, Denies melena, Denies hematochezia, Denies diarrhea, Denies nausea, Denies vomiting and Denies hematemesis Musculoskeletal: Musculoskeletal: Denies deformity, Denies joint swelling, Denies neck pain and Denies numbness Neurologic: Denies Abnormal speech present, Denies abnormal gait, Denies confusion, Denies dizziness, Denies headache(s), Denies focal weakness, Denies loss of vision, Denies numbness, Denies Other visual disturbances, Denies Sensory deficit (Neuro) and Denies weakness Psychiatric: Psychiatric: Denies confusion, Denies depression, Denies auditory hallucinations, Denies homicidal ideation and Denies suicidal ideation Endocrine: Endocrine: Denies cold intolerance, Denies excessive sweating, Denies fatigue, Denies heat intolerance and Denies palpitations Hematologic/Lymphatic: Hematologic/Lymphatic: Denies easy bleeding and Denies easy bruising Allergic/Immunologic: Allergic/Immunologic: Denies lip swelling, Denies throat swelling and Denies tongue swelling [facility] Past Medical History Medical History Aortic aneurysm CHF (congestive heart failure) Chronic kidney disease, stage IV (severe) With history of temporary dialysis 2019 Coronary artery disease CVA (cerebral vascular accident) X2 Diabetes Diabetic peripheral neuropathy GERD (gastroesophageal reflux disease) Hypercholesterolemia Hypertension Presbycusis of both ears Subdural
[2021-09-30] MEDS: HYDROcodone/acetaminophen (*CRX) 5-325 MG TABLET 1 TAB PO (09:07)
--- NOTE | 2021-09-30 09:13 | PC.NURSE ---
Patient off unit to radiology.
--- NOTE | 2021-09-30 10:06 | ECG_ITS ---
Measurements Intervals [place] Rate: 77 P: -9 FL: 207 QRS: -10 QRSD: 137 T: -12 QT: 408 QTc: 463 Interpretive Statements SINUS RHYTHM LEFT BUNDLE BRANCH BLOCK [120+ ms QRS DURATION, 80+ ms Q/S IN V1/V2, 85+ ms R IN I/aVL/V5/V6] COMPARED TO ECG 04/12/2021 07:27:34 NO SIGNIFICANT CHANGES Electronically Signed On 09-30-2021 17:29:34 CDT by Shaw Holland M.D.
--- NOTE | 2021-09-30 10:23 | PC.NURSE ---
Dr. Zimmerman back at bedside to update patient on lab results.
[2021-09-30 12:33] LABS: Basophils Absolute Auto 0.1 K/mm3 (0.0-0.1); Basophils Percent Auto 0.6 % (0.2-1.2); Eosinophils Absolute Auto 0.1 K/mm3 (0-0.3); Eosinophils Percent Auto 0.7 % (0-4.4); Hematocrit 31.9 % (42.0-52.0); Hemoglobin 9.8 g/dL (14.0-18.0); Immature Granulocyte Percent A 0.7 % (0-0.5); Lymphocytes Absolute Auto 1.36 K/mm3 (0.9-3.2); Mean Corpuscular HGB Conc 30.7 g/dl (32-36); Mean Corpuscular Hemoglobin 30.7 pg (26-34); Mean Platelet Volume 9.4 fl (7.4-10.4); Monocytes Absolute Auto 1.1 K/mm3 (0.1-0.6); Monocytes Percent Auto 7.9 % (2.6-8.5); Neutrophils Absolute Auto 10.9 K/mm3 (1.3-6.7); Neutrophils Percent Auto 80.1 % (45.5-73.1); Platelet Count Result 211 k/mm3 (150-375); Red Blood Count 3.19 M/mm3 (4.6-6.20); Red Cell Distribution Width 14.3 % (11.5-14.5); White Blood Count 13.6 K/mm3 (4.5-10.0)
[2021-09-30] MEDS: HYDROmorphone HCL INJ (*CRX) 1 MG/ML SYR 0.5 MG IV PUSH ×2 (12:38→14:22)
[2021-09-30] MEDS: ONDANSETRON INJ 4 MG/2 ML VIAL IV PUSH (12:38)
[2021-09-30] MEDS: LACTATED RINGERS 1,000 ML 90 ML IV CONT (12:41)
[2021-09-30 12:47] LABS: INR 1.2; Prothrombin Time 14.7 Seconds (11.1-14.7)
[2021-09-30 12:48] LABS: Partial Thromboplastin Time 30.8 SECONDS (22.3-36.8)
[2021-09-30 13:44] LABS: Alanine Aminotransferase 19 U/L (4-50); Albumin Level 3.4 g/dL (3.5-5.1); Alkaline Phosphatase 163 U/L (38-126); Anion Gap 5 mmol/L (8-16); Aspartate Amino Transferase 42 U/L (17-59); Blood Urea Nitrogen 41 mg/dL (9-20); Calcium 8.5 mg/dL (8.4-10.2); Carbon Dioxide 32 mmol/L (22-30); Chloride 101 mmol/L (98-107); Estimated Glomerular Filt Rate 23; Glucose 162 mg/dL (65-110); Potassium 4.7 mmol/L (3.4-5.0); Sodium 138 mmol/L (137-145)
[2021-09-30] MEDS: HYDROmorphone HCL INJ (*CRX) 1 MG/ML SYR IV PUSH (15:58)
== END 2021-09-30 16:12 | disposition short-term general hospital (02) ==
PROVIDERS: Emergency Provider Emergency Medicine; PCP Physician Assistant
DX: S72.092A Other fracture of head and neck of left femur, initial encounter for closed fracture (principal); S42.222A 2-part displaced fracture of surgical neck of left humerus, initial encounter for closed fracture; I50.9 Heart failure, unspecified; E11.22 Type 2 diabetes mellitus with diabetic chronic kidney disease; I13.0 Hypertensive heart and chronic kidney disease with heart failure and stage 1 through stage 4 chronic kidney disease, or unspecified chronic kidney disease; N18.4 Chronic kidney disease, stage 4 (severe); I25.10 Atherosclerotic heart disease of native coronary artery without angina pectoris; Z86.73 Personal history of transient ischemic attack (TIA), and cerebral infarction without residual deficits; E11.42 Type 2 diabetes mellitus with diabetic polyneuropathy; E78.00 Pure hypercholesterolemia, unspecified; Z95.1 Presence of aortocoronary bypass graft; Z95.2 Presence of prosthetic heart valve; Z98.42 Cataract extraction status, left eye; Z98.41 Cataract extraction status, right eye; Z96.1 Presence of intraocular lens; Z79.4 Long term (current) use of insulin; M19.012 Primary osteoarthritis, left shoulder; M16.0 Bilateral primary osteoarthritis of hip; I44.7 Left bundle-branch block, unspecified; W01.0XXA Fall on same level from slipping, tripping and stumbling without subsequent striking against object, initial encounter
CPT/HCPCS: 36415; 73030; 73502; 80053; 85025; 85610; 85730; 93005; 96361; 96374; 96375; 96376; 99285; A9270; J1170; J2405; J7120

== ENCOUNTER 2021-12-17 14:59 | Observation (INO) | payer MEDICARE, MEDICAID, SELFPAY ==
--- NOTE | ~2021-12-17 | XR_ITS ---
EXAMINATION: XR chest 1V portable Exam Date/Time: 12/17/2021 15:15 CDT HISTORY: weakness,CHF,CVA,HTN Comparison: 04/10/2021. RESULT: Lines, tubes, and devices: Fractured superior sternotomy wire, stable in position. Cardiac valve rep lacement. Likely gallstones. Lungs and pleura: Subsegmental patchy opacities in the lung bases, greater on the left. Minimal bila teral angle blunting. Cardiomediastinal silhouette: Stable cardiomediastinal silhouette. Other: No acute osseous or upper abdominal finding. IMPRESSION: Atelectasis/consolidation in the lung bases. Possible small bilateral effusions. Reviewed, dictated and finalized at location K. IMPRESSION: Atelectasis/consolidation in the lung bases. Possible small bilateral effusions .
[2021-12-17 15:07] VITALS: BP 122/70; PULSE 83; RESP 16; TEMP 37.1; O2SAT 94
[2021-12-17 15:25] LABS: Basophils Absolute Auto 0.1 K/mm3 (0.0-0.1); Basophils Percent Auto 0.9 % (0.2-1.2); Eosinophils Percent Auto 0.2 % (0-4.4); Hematocrit 34.9 % (42.0-52.0); Immature Granulocyte Absolute 0.02 K/mm3 (0.00-0.031); Immature Granulocyte Percent A 0.4 % (0-0.5); Lymphocytes Absolute Auto 0.86 K/mm3 (0.9-3.2); Lymphocytes Percent Auto 15.6 % (18.3-44.2); Mean Corpuscular HGB Conc 31.5 g/dl (32-36); Mean Corpuscular Hemoglobin 29.6 pg (26-34); Mean Corpuscular Volume 94.1 fl (80-100); Mean Platelet Volume 9.6 fl (7.4-10.4); Monocytes Percent Auto 18.5 % (2.6-8.5); Neutrophils Absolute Auto 3.6 K/mm3 (1.3-6.7); Neutrophils Percent Auto 64.4 % (45.5-73.1); Platelet Count Result 105 k/mm3 (150-375); Red Blood Count 3.71 M/mm3 (4.6-6.20); Red Cell Distribution Width 13.7 % (11.5-14.5); White Blood Count 5.5 K/mm3 (4.5-10.0)
[2021-12-17 15:36] LABS: Lactic Acid Reflex 1.8 mmol/L (0.7-2.0)
[2021-12-17 15:37] LABS: Alanine Aminotransferase 23 U/L (6-50); Albumin Level 3.7 g/dL (3.5-5.1); Alkaline Phosphatase 235 U/L (38-126); Anion Gap 9 mmol/L (8-16); Aspartate Amino Transferase 42 U/L (17-59); Bilirubin,Total 0.3 mg/dL (0.2-1.3); Blood Urea Nitrogen 55 mg/dL (9-20); Calcium 8.2 mg/dL (8.4-10.2); Carbon Dioxide 30 mmol/L (22-30); Chloride 95 mmol/L (98-107); Estimated Glomerular Filt Rate 22; Glucose 263 mg/dL (65-110); Sodium 134 mmol/L (137-145)
--- NOTE | 2021-12-17 15:41 | ED.GENADULT ---
HPI - General Adult General Chief complaint: Weakness Stated complaint: weakness History of Present Illness HPI narrative: 71-year-old male presents today with complaints of weakness from home. Patient has had a unfortunate course of events over the last few months. Patient states he originally broke his right shoulder went to rehab where he fell broke his left shoulder and left hip. States he was sent home from rehab Wednesday. Patient lives by himself and is unable to ambulate. Patient has been in his recliner since his discharge. She called 911 yesterday who came to the house and helped him with his medications. He had a friend come today who gave him some food. He then ended up calling 911 today. Patient states chronic shortness of breath over the last 2 months, denies any chest pain, denies feeling any different than when he was discharged from the alf/rehab facility. Patient with chronic wounds noted to bilateral heels. Bilateral heels are necrotic. He states the dressings were changed daily at the alf. Dressings are dated 12/15 which is the day that he was discharged. Related Data Home Medications Medication Instructions Recorded Confirmed atorvastatin 40 mg tablet 40 mg PO DAILY 04/10/21 04/11/21 cholecalciferol (vitamin D3) 125 5,000 unit PO DAILY 04/10/21 04/11/21 mcg (5,000 unit) tablet (Vitamin D3) furosemide 20 mg tablet 20 mg PO DAILY 04/10/21 04/11/21 glimepiride 4 mg tablet 4 mg PO DAILY 04/10/21 04/11/21 insulin glargine 100 unit/mL (3 25 unit subcut BID 04/10/21 04/11/21 mL) subcutaneous pen (Lantus Solostar U-100 Insulin) isosorbide mononitrate 30 mg 30 mg PO DAILY 04/10/21 04/11/21 tablet,extended release 24 hr Allergies Allergy/AdvReac Type Severity Reaction Status Date / Time No Known Allergies Allergy Verified 09/30/21 08:51 Review of Systems Review of Systems: CONSTITUTIONAL: Denies fever, chills, or sweats. EYES: Denies visual changes, redness, or discharge. ENT: Denies rhinorrhea, congestion, sore throat, or otalgia. CARDIOVASCULAR: Denies chest pain, palpitations, or edema. RESPIRATORY: Denies cough or dyspnea. GASTROINTESTINAL: Denies abdominal pain, nausea, vomiting, or diarrhea. GENITOURINARY: Denies dysuria or hematuria. SKIN: Wounds to bilateral heels. Denies rash or itching. MUSCULOSKELETAL: Inability to walk. Denies back pain, joint pain, or myalgia. NEUROLOGIC: Denies headache, numbness, dizziness, or weakness. PSYCHIATRIC: Denies anxiety or depression. [facility] Past Medical History Medical History Aortic aneurysm CHF (congestive heart failure) Chronic kidney disease, stage IV (severe) With history of temporary dialysis 2019 Coronary artery disease CVA (cerebral vascular accident) X2 Diabetes Diabetic peripheral neuropathy GERD (gastroesophageal reflux disease) Hypercholesterolemia Hypertension Presbycusis of both ears Subdural hematoma (01/08/21) Acute versus subacute subdural hematoma right frontal and parietal lobes with acute subarachnoid hemorrhage of left parietal lobe sulcus, acute subdural versus subarachnoid hemorrhage left of the frontal falx Surgical History Surgical History History of aortic valve replacement Bioprosthetic or tissue Hx of CABG (~2006) Three vessel CABG performed in [place] Status post cataract extraction of both eyes with insertion of intraocular lens Family History Family History Sibling Colon cancer Mother Cancer Social History Social History Social History: He is and lives alone. He does not have any children. He is a lifelong nonsmoker and does not drink alcohol. 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 Primary care provider: Keysha Bowman Code status: Full code Surr
[2021-12-17 16:05] LABS: NT Pro B Type Natriuretic Pept 5640 pg/mL (5-100)
[2021-12-17 16:54] LABS: Creatine Kinase 51 U/L (55-170)
[2021-12-17] MEDS: SODIUM CHLORIDE 0.9% IV 500 ML 999 ML IV CONT (18:27)
[2021-12-17] MEDS: ACETAMINOPHEN 500 MG TABLET 1000 MG PO (19:15)
[2021-12-17 19:26] LABS: Appearance Urine Clear (Clear); Bilirubin Urine Negative (Negative); Color Urine Yellow (Yellow); Glucose Urine UA Trace mg/dL (Negative); Ketones Urine Negative (Negative); Leukocyte Esterase Ur Negative LEU/UL (Negative); Nitrate Urine Negative (Negative); Protein Urine 1+ mg/dL (Negative); Urobilinogen Urine 0.2 mg/dL (<2.0)
[2021-12-17 19:27] LABS: Add Urine Microscopic? YES; Blood Urine Trace-Intact (Negative)
[2021-12-17 19:30] LABS: Mucus Urine Rare /lpf; RBC Urine 0-2 /hpf (0-2); Squamous Epithelial Cell Urine Rare /hpf (Few); WBC Urine 0-3 /hpf
[2021-12-17 19:46] VITALS: PULSE 72; RESP 16; O2SAT 98
[2021-12-17 20:26] VITALS: BP 142/65; PULSE 83; RESP 16; TEMP 36.6; O2SAT 99
[2021-12-17 20:27] VITALS: BMI 28.1
--- NOTE | 2021-12-17 20:28 | ADMGEN ---
This patient, Chris Pavon, was admitted to [address] [place] [address] Room [facility] at 2015. Patient/family oriented to hospital policies and general routines including ID bracelet, bed and alarms, visiting hours, pain management, procedures, bathroom and other care routines, personal items, smoking policy, room service/diet, and visiting hours. Information on how to activate the Rapid Response Team has been discussed. Patient/Family are encouraged to report perceived risks to care and to ask questions if they do not understand what they are told or what they should do.
--- NOTE | 2021-12-17 20:30 | PM.IMHP ---
H&P: HPI History of Present Illness Date/Time: Patient was placed observation status for expected length of stay less than 23 hours for management, will plan to re-evaluate tomorrow for improvement. 12/17/21 20:30 Chief Complaint: Weakness Narrative: Mr. Pavon is a 71-year-old gentleman who was brought to the emergency room via EMS for complaints of weakness. Patient states that he was discharged from a rehab facility on 12/15 and was not able to walk very well and went home and has been sitting in his recliner for 2 days. Patient states that over the last few months he has had multiple fractures. Patient states he broke his right shoulder and went to rehab and while at rehab he fell and broke his left shoulder and left hip. Patient states he was taken to [facility] for his 2nd surgery. Patient denies any chest pain, shortness for breath, lightheadedness, dizziness, syncopal, or near syncopal episodes. Patient states he does have wounds to bilateral heels that a nurse was taking care of at the rehab facility he was at. Patient states that he was having daily dressing changes while at the rehab facility, but they have not been changed since the . Patient states he has not been taking all her medications secondary to not being able to walk. Patient does have a known history of chronic kidney disease and at 1 point he was going to be placed on hemodialysis. Patient has a left forearm AV fistula that has never been used. At this point time patient states he has been taking care of his diabetes better than he had been and his kidney function is significantly improved and he has not needed dialysis. Patient states he does have a known history of diabetes mellitus, coronary artery disease status post coronary bypass grafting and aortic valve replacement. Patient states that he follows with Dr. Feng for his cardiac issues. Patient states he follows with Dr. Cedeño for his renal failure. Review of Systems Review of Systems: A 12 point review of systems was completed patient all pertinent positive and negative per HPI the remainder are unremarkable. [facility] Past Medical History Medical History Aortic aneurysm CHF (congestive heart failure) Chronic kidney disease, stage IV (severe) With history of temporary dialysis 2019 Coronary artery disease CVA (cerebral vascular accident) X2 Diabetes Diabetic peripheral neuropathy GERD (gastroesophageal reflux disease) Hypercholesterolemia Hypertension Presbycusis of both ears Subdural hematoma (01/08/21) Acute versus subacute subdural hematoma right frontal and parietal lobes with acute subarachnoid hemorrhage of left parietal lobe sulcus, acute subdural versus subarachnoid hemorrhage left of the frontal falx Surgical History Surgical History History of aortic valve replacement Bioprosthetic or tissue Hx of CABG (~2006) Three vessel CABG performed in [place] Status post cataract extraction of both eyes with insertion of intraocular lens Family History Family History Sibling Colon cancer Mother Cancer Social History Social History Social History: He is and lives alone. He does not have any children. He is a lifelong nonsmoker and does not drink alcohol. 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 Primary care provider: Keysha Bowman Code status: Full code Surrogate decision maker: None. He reports that he does not trust anyone enough to provide decisions for him if he is unable to. Smoking status: Never smoker Second hand tobacco smoke exposure: No Alcohol intake: never Substance use: never Substance use type: does not use Gender identity (if verbalized by the patient): Male Spiritual care concerns: No Meds Home Medicati
[2021-12-17 20:47] LABS: Glucose Point of Care 209 mg/dl (65-105)
[2021-12-17] MEDS: APIXABAN 2.5 MG TABLET PO (22:49)
[2021-12-17] MEDS: traZODone HCL 50 MG TABLET PO (22:49)
[2021-12-17] MEDS: TAMSULOSIN HCL 0.4 MG CAPSULE PO (22:49)
[2021-12-18] VITALS (7 sets, daily range): BP systolic 90–151; BP diastolic 51–90; PULSE 72–80; RESP 16–18; TEMP 36.4–36.9; O2SAT 95–97; BMI 28.1
[2021-12-18 06:13] LABS: Basophils Absolute Auto 0.1 K/mm3 (0.0-0.1); Eosinophils Absolute Auto 0.1 K/mm3 (0-0.3); Hematocrit 34.4 % (42.0-52.0); Hemoglobin 10.8 g/dL (14.0-18.0); Immature Granulocyte Absolute 0.02 K/mm3 (0.00-0.031); Immature Granulocyte Percent A 0.4 % (0-0.5); Lymphocytes Absolute Auto 1.43 K/mm3 (0.9-3.2); Lymphocytes Percent Auto 27.2 % (18.3-44.2); Mean Corpuscular HGB Conc 31.4 g/dl (32-36); Mean Corpuscular Hemoglobin 29.9 pg (26-34); Mean Corpuscular Volume 95.3 fl (80-100); Mean Platelet Volume 9.9 fl (7.4-10.4); Monocytes Absolute Auto 1.2 K/mm3 (0.1-0.6); Neutrophils Absolute Auto 2.5 K/mm3 (1.3-6.7); Neutrophils Percent Auto 47.4 % (45.5-73.1); Platelet Count Result 102 k/mm3 (150-375); Red Blood Count 3.61 M/mm3 (4.6-6.20); Red Cell Distribution Width 13.6 % (11.5-14.5); White Blood Count 5.3 K/mm3 (4.5-10.0)
[2021-12-18 06:28] LABS: Alanine Aminotransferase 22 U/L (6-50); Albumin Level 3.3 g/dL (3.5-5.1); Alkaline Phosphatase 231 U/L (38-126); Anion Gap 8 mmol/L (8-16); Aspartate Amino Transferase 42 U/L (17-59); Bilirubin,Total 0.3 mg/dL (0.2-1.3); Blood Urea Nitrogen 54 mg/dL (9-20); Calcium 8.2 mg/dL (8.4-10.2); Carbon Dioxide 26 mmol/L (22-30); Chloride 99 mmol/L (98-107); Estimated CRCL calculation 22 ml/min; Estimated Glomerular Filt Rate 23; Glucose 137 mg/dL (65-110); Potassium 3.4 mmol/L (3.4-5.0); Sodium 133 mmol/L (137-145)
[2021-12-18 07:38] LABS: Glucose Point of Care 149 mg/dl (65-105)
[2021-12-18] MEDS: ISOSORBIDE MONONITRATE 30 MG TAB.ER.24H PO (08:17)
[2021-12-18] MEDS: FUROSEMIDE 20 MG TABLET PO (08:18)
[2021-12-18] MEDS: ATORVASTATIN 40 MG TABLET PO (08:18)
[2021-12-18] MEDS: METOPROLOL SUCCINATE EXT REL 50 MG TABCR PO (08:18)
[2021-12-18] MEDS: APIXABAN 2.5 MG TABLET PO ×2 (08:19→20:37)
[2021-12-18] MEDS: POTASSIUM CHLORIDE 20 MEQ PACKET (FOR LIQUID) PO ×2 (08:19→17:56)
[2021-12-18] MEDS: INSULIN GLARGINE (*BKC) 100 UNITS/ML 20 UNITS SUB-Q ×2 (08:19→17:55)
[2021-12-18 11:30] LABS: Glucose Point of Care 215 mg/dl (65-105)
[2021-12-18] MEDS: INSULIN ASPART (*BKC) 100 UNITS/ML SUB-Q ×2 (12:48→17:56)
--- NOTE | 2021-12-18 15:28 | PM.IMPN ---
Progress Note: A&P Assessment and Plan (1) Weakness: Code(s): R53.1 - Weakness Status: Acute Assessment and Plan: Will have PT/OT to evaluate and treat. Patient will most likely need either long-term placement in group home or further rehab. 12/18/2021 interval history: patient with bilateral shoulder fracture, and hip fracture status post ORIF, also wound on sacral area complains of pain and difficulty with ADLs patient is working physical therapy as well as Wound Team, also patient with acute on chronic kidney disease patient gently hydrate will continue to monitor, patient will benefit with physical therapy, will continue to monitor. (2) Diabetes mellitus with hyperglycemia, with long-term current use of insulin: Qualifiers: Diabetes mellitus type: type 2 Qualified Code(s): E11.65 - Type 2 diabetes mellitus with hyperglycemia; Z79.4 - buttermaker continuous churn (current) use of insulin Code(s): E11.65 - Type 2 diabetes mellitus with hyperglycemia; Z79.4 - buttermaker continuous churn (current) use of insulin Status: Acute Assessment and Plan: Will resume home patient's home if possible medications once we have verified medication list. Will have blood glucose monitoring before meals and at bedtime with sliding scale insulin available. (3) Chronic kidney disease, stage IV (severe): Code(s): N18.4 - Chronic kidney disease, stage 4 (severe) Status: Acute Assessment and Plan: Patient's kidney function is at baseline no further treatment is needed at this time. Subjective Date/time seen: 12/18/21 15:28 Weakness Narrative: HPI:Mr. Pavon is a 71-year-old gentleman who was brought to the emergency room via EMS for complaints of weakness.? Patient states that he was discharged from a rehab facility on 12/15 and was not able to walk very well and went home and has been sitting in his recliner for 2 days.? Patient states that over the last few months he has had multiple fractures.? Patient states he broke his right shoulder and went to rehab and while at rehab he fell and broke his left shoulder and left hip.? Patient states he was taken to [facility] for his 2nd surgery.? Patient denies any chest pain, shortness for breath, lightheadedness, dizziness, syncopal, or near syncopal episodes.? Patient states he does have wounds to bilateral heels that a nurse was taking care of at the rehab facility he was at.? Patient states that he was having daily dressing changes while at the rehab facility, but they have not been changed since the .? Patient states he has not been taking all her medications secondary to not being able to walk. Patient does have a known history of chronic kidney disease and at 1 point he was going to be placed on hemodialysis.? Patient has a left forearm AV fistula that has never been used.? At this point time patient states he has been taking care of his diabetes better than he had been and his kidney function is significantly improved and he has not needed dialysis.? Patient states he does have a known history of diabetes mellitus, coronary artery disease status post coronary bypass grafting and aortic valve replacement.? Patient states that he follows with Dr. Feng for his cardiac issues.? Patient states he follows with Dr. Cedeño for his renal failure. 12/18/2021 interval history: patient with bilateral shoulder fracture, and hip fracture status post ORIF, also wound on sacral area complains of pain and difficulty with ADLs patient is working physical therapy as well as Wound Team, also patient with acute on chronic kidney disease patient gently hydrate will continue to monitor, patient will benefit with physical therapy, will continue to monitor. Exam Narrative: Patient is comfortable, NAD HEENT: eyes are clear and none icteric LUNGS: normal respiratory effort ABD: distended Lower extremities: no edema MS: bilateral shoulders appear deformed, SKIN: nonjaundiced Neuro: amarilis
[2021-12-18 16:50] LABS: Glucose Point of Care 204 mg/dl (65-105)
[2021-12-18] MEDS: TAMSULOSIN HCL 0.4 MG CAPSULE PO (20:37)
[2021-12-18] MEDS: traZODone HCL 50 MG TABLET PO (20:37)
[2021-12-18 20:57] LABS: Glucose Point of Care 161 mg/dl (65-105)
[2021-12-19] MEDS: oxyCODONE HCL (*CRX) 5 MG TAB IR PO ×3 (01:00→22:23)
[2021-12-19 05:38] LABS: Hematocrit 31.9 % (42.0-52.0); Mean Corpuscular HGB Conc 31.3 g/dl (32-36); Mean Corpuscular Hemoglobin 29.7 pg (26-34); Mean Corpuscular Volume 94.7 fl (80-100); Mean Platelet Volume 10.2 fl (7.4-10.4); Platelet Count Result 97 k/mm3 (150-375); Red Blood Count 3.37 M/mm3 (4.6-6.20); Red Cell Distribution Width 13.7 % (11.5-14.5); White Blood Count 5.2 K/mm3 (4.5-10.0)
[2021-12-19 06:44] VITALS: BP 148/82; PULSE 75; RESP 16; TEMP 36.5; O2SAT 99
[2021-12-19 07:51] LABS: Glucose Point of Care 118 mg/dl (65-105)
[2021-12-19] MEDS: FUROSEMIDE 20 MG TABLET PO (08:16)
[2021-12-19] MEDS: APIXABAN 2.5 MG TABLET PO ×2 (08:16→22:24)
[2021-12-19] MEDS: POTASSIUM CHLORIDE 20 MEQ PACKET (FOR LIQUID) PO ×2 (08:16→17:00)
[2021-12-19] MEDS: ISOSORBIDE MONONITRATE 30 MG TAB.ER.24H PO (08:16)
[2021-12-19] MEDS: ATORVASTATIN 40 MG TABLET PO (08:16)
[2021-12-19 08:17] VITALS: PULSE 75
[2021-12-19] MEDS: METOPROLOL SUCCINATE EXT REL 50 MG TABCR PO (08:17)
[2021-12-19] MEDS: ZINC OXIDE 20% OINT 30 GM TUBE 1 APPLIC TOPICAL ×2 (08:18→16:57)
[2021-12-19] MEDS: INSULIN GLARGINE (*BKC) 100 UNITS/ML 20 UNITS SUB-Q ×2 (08:19→16:56)
[2021-12-19 11:53] LABS: Glucose Point of Care 154 mg/dl (65-105)
[2021-12-19 14:00] VITALS: BP 98/49; PULSE 70; RESP 18; TEMP 36.6; O2SAT 98
--- NOTE | 2021-12-19 16:14 | PM.DS ---
DS: Admitting Diagnosis Discharge Date 12/19/2021 Admitting Diagnosis weakness DS: Discharge Diagnosis Discharge Diagnosis (1) Weakness: Code(s): R53.1 - Weakness Status: Acute Assessment and Plan: Will have PT/OT to evaluate and treat. Patient will most likely need either long-term placement in prison or further rehab. 12/18/2021 interval history: patient with bilateral shoulder fracture, and hip fracture status post ORIF, also wound on sacral area complains of pain and difficulty with ADLs patient is working physical therapy as well as Wound Team, also patient with acute on chronic kidney disease patient gently hydrate will continue to monitor, patient will benefit with physical therapy, will continue to monitor. (2) Diabetes mellitus with hyperglycemia, with long-term current use of insulin: Qualifiers: Diabetes mellitus type: type 2 Qualified Code(s): E11.65 - Type 2 diabetes mellitus with hyperglycemia; Z79.4 - group home (current) use of insulin Code(s): E11.65 - Type 2 diabetes mellitus with hyperglycemia; Z79.4 - group home (current) use of insulin Status: Acute Assessment and Plan: Will resume home patient's home if possible medications once we have verified medication list. Will have blood glucose monitoring before meals and at bedtime with sliding scale insulin available. (3) Chronic kidney disease, stage IV (severe): Code(s): N18.4 - Chronic kidney disease, stage 4 (severe) Status: Acute Assessment and Plan: Patient's kidney function is at baseline no further treatment is needed at this time. DS: Summary Hospital Course Reason for hospitalization: Chief Complaint: Weakness Narrative: Mr. Pavon is a 71-year-old gentleman who was brought to the emergency room via EMS for complaints of weakness.? Patient states that he was discharged from a rehab facility on 12/15 and was not able to walk very well and went home and has been sitting in his recliner for 2 days.? Patient states that over the last few months he has had multiple fractures.? Patient states he broke his right shoulder and went to rehab and while at rehab he fell and broke his left shoulder and left hip.? Patient states he was taken to [facility] for his 2nd surgery.? Patient denies any chest pain, shortness for breath, lightheadedness, dizziness, syncopal, or near syncopal episodes.? Patient states he does have wounds to bilateral heels that a nurse was taking care of at the rehab facility he was at.? Patient states that he was having daily dressing changes while at the rehab facility, but they have not been changed since the .? Patient states he has not been taking all her medications secondary to not being able to walk. Patient does have a known history of chronic kidney disease and at 1 point he was going to be placed on hemodialysis.? Patient has a left forearm AV fistula that has never been used.? At this point time patient states he has been taking care of his diabetes better than he had been and his kidney function is significantly improved and he has not needed dialysis.? Patient states he does have a known history of diabetes mellitus, coronary artery disease status post coronary bypass grafting and aortic valve replacement.? Patient states that he follows with Dr. Feng for his cardiac issues.? Patient states he follows with Dr. Cedeño for his renal failure. Hospital Course: ?patient with bilateral shoulder fracture,? and hip fracture status post ORIF, also wound on sacral area complains of pain and difficulty with ADLs patient is working physical therapy as well as Wound Team,? also patient with acute on chronic kidney disease patient gently hydrate will continue to monitor, patient will benefit with physical therapy, will continue to monitor. patient remains clinically stable, prior to discharge patient had a COVID test that was positive, and had no symptoms of COVID pneumonia such
[2021-12-19 16:36] LABS: Glucose Point of Care 137 mg/dl (65-105)
[2021-12-19 16:53] LABS: EDCOVIDSCREEN Positive (Negative)
[2021-12-19 18:09] LABS: SARS-CoV-2 RNA PCR Positive
[2021-12-19 19:50] VITALS: BP 103/57; PULSE 74; RESP 18; TEMP 36.6; O2SAT 95
[2021-12-19] MEDS: TAMSULOSIN HCL 0.4 MG CAPSULE PO (22:24)
[2021-12-19] MEDS: traZODone HCL 50 MG TABLET PO (22:24)
[2021-12-19 23:56] LABS: Glucose Point of Care 140 mg/dl (65-105)
[2021-12-20 05:37] LABS: Hematocrit 33.6 % (42.0-52.0); Hemoglobin 10.5 g/dL (14.0-18.0); Immature Platelet Fraction Pct 4.5 % (0.9-11.2); Mean Corpuscular HGB Conc 31.3 g/dl (32-36); Mean Corpuscular Hemoglobin 29.3 pg (26-34); Mean Corpuscular Volume 93.9 fl (80-100); Mean Platelet Volume 10.6 fl (7.4-10.4); Platelet Count Result 102 k/mm3 (150-375); Red Blood Count 3.58 M/mm3 (4.6-6.20); Red Cell Distribution Width 13.5 % (11.5-14.5); White Blood Count 5.2 K/mm3 (4.5-10.0)
[2021-12-20 06:00] VITALS: BP 118/63; PULSE 69; RESP 22; TEMP 36.8; O2SAT 95
[2021-12-20 07:59] LABS: Glucose Point of Care 114 mg/dl (65-105)
[2021-12-20] MEDS: INSULIN GLARGINE (*BKC) 100 UNITS/ML 20 UNITS SUB-Q (08:49)
[2021-12-20] MEDS: ATORVASTATIN 40 MG TABLET PO (08:52)
[2021-12-20] MEDS: METOPROLOL SUCCINATE EXT REL 50 MG TABCR PO (08:52)
[2021-12-20] MEDS: APIXABAN 2.5 MG TABLET PO (08:53)
[2021-12-20] MEDS: ISOSORBIDE MONONITRATE 30 MG TAB.ER.24H PO (08:53)
[2021-12-20] MEDS: FUROSEMIDE 20 MG TABLET PO (08:53)
[2021-12-20] MEDS: POTASSIUM CHLORIDE 20 MEQ PACKET (FOR LIQUID) PO (08:55)
[2021-12-20 09:28] LABS: Alanine Aminotransferase 19 U/L (6-50); Albumin Level 2.9 g/dL (3.5-5.1); Alkaline Phosphatase 178 U/L (38-126); Anion Gap 7 mmol/L (8-16); Aspartate Amino Transferase 36 U/L (17-59); Bilirubin,Total 0.1 mg/dL (0.2-1.3); Blood Urea Nitrogen 56 mg/dL (9-20); CRP 0.9 mg/dL (<1.0); Calcium 7.8 mg/dL (8.4-10.2); Carbon Dioxide 26 mmol/L (22-30); Chloride 100 mmol/L (98-107); Estimated CRCL calculation 22 ml/min; Estimated Glomerular Filt Rate 23; Glucose 107 mg/dL (65-110); Potassium 3.6 mmol/L (3.4-5.0); Sodium 133 mmol/L (137-145)
[2021-12-20 12:10] LABS: Glucose Point of Care 143 mg/dl (65-105)
== END 2021-12-20 13:10 ==
LOC: ANHED 17:47 → ANH3MED 22:59
PROVIDERS: Admitting Provider Internal Medicine; Emergency Provider Nurse Practitioner Family; PCP Physician Assistant; Visit Provider Family Medicine
DX: R53.1 Weakness (principal); E11.65 Type 2 diabetes mellitus with hyperglycemia; I50.9 Heart failure, unspecified; N18.4 Chronic kidney disease, stage 4 (severe); U07.1 COVID-19; I25.10 Atherosclerotic heart disease of native coronary artery without angina pectoris; Z86.73 Personal history of transient ischemic attack (TIA), and cerebral infarction without residual deficits; E11.22 Type 2 diabetes mellitus with diabetic chronic kidney disease; Z79.4 Long term (current) use of insulin; E11.42 Type 2 diabetes mellitus with diabetic polyneuropathy; K21.9 Gastro-esophageal reflux disease without esophagitis; E78.00 Pure hypercholesterolemia, unspecified; I13.0 Hypertensive heart and chronic kidney disease with heart failure and stage 1 through stage 4 chronic kidney disease, or unspecified chronic kidney disease; Z95.1 Presence of aortocoronary bypass graft; Z95.2 Presence of prosthetic heart valve; S31.000D Unspecified open wound of lower back and pelvis without penetration into retroperitoneum, subsequent encounter; M53.3 Sacrococcygeal disorders, not elsewhere classified
CPT/HCPCS: 36415; 71045; 80053; 81001; 82550; 82948; 83605; 83735; 83880; 85025; 85027; 85055; 86140; 87426; 96360; 97110; 97161; 97166; 97530; 97535; 99285; A9270; C9803; G0378; J1815; J7040; U0003; U0005

== ENCOUNTER 2022-02-24 13:46 | Observation (INO) | payer MEDICARE, MEDICAID, SELFPAY ==
[2022-02-24] VITALS (10 sets, daily range): BP systolic 98–123; BP diastolic 45–108; PULSE 71–85; RESP 13–20; TEMP 35.8–36.5; O2SAT 93–99; BMI 27.8
--- NOTE | 2022-02-24 15:32 | PCCCNOTE ---
Called to ED by Dr Kaplan for placement to [place]. Pt has had previous stays at [facility] and [facility]. Pt may have also had a stay at [facility] in the past. Pt has not been happy with the accommodations and service at these facilities. I informed him the the other NH would be similar. I called Nicho Delgadillo at [facility] to see if they would except the pt back and am awaiting a response.
[2022-02-24 16:12] LABS: Basophils Absolute Auto 0.1 K/mm3 (0.0-0.1); Basophils Percent Auto 0.7 % (0.2-1.2); Eosinophils Absolute Auto 0.1 K/mm3 (0-0.3); Eosinophils Percent Auto 0.6 % (0-4.4); Hematocrit 34.4 % (42.0-52.0); Hemoglobin 11.1 g/dL (14.0-18.0); Immature Granulocyte Absolute 0.05 K/mm3 (0.00-0.031); Immature Granulocyte Percent A 0.3 % (0-0.5); Lymphocytes Absolute Auto 1.25 K/mm3 (0.9-3.2); Lymphocytes Percent Auto 7.6 % (18.3-44.2); Mean Corpuscular HGB Conc 32.3 g/dl (32-36); Mean Corpuscular Hemoglobin 30.2 pg (26-34); Mean Corpuscular Volume 93.7 fl (80-100); Mean Platelet Volume 9.3 fl (7.4-10.4); Monocytes Absolute Auto 1.3 K/mm3 (0.1-0.6); Neutrophils Absolute Auto 13.5 K/mm3 (1.3-6.7); Neutrophils Percent Auto 82.8 % (45.5-73.1); Platelet Count Result 209 k/mm3 (150-375); Red Blood Count 3.67 M/mm3 (4.6-6.20); White Blood Count 16.4 K/mm3 (4.5-10.0)
[2022-02-24 16:22] LABS: INR 1.2; Prothrombin Time 14.8 Seconds (11.1-14.7)
--- NOTE | 2022-02-24 17:56 | PC.NURSE ---
two failed attempts to recollect blood for CMP. Lab aware and are to come up and draw. Pt continues to be resistant to blood draw and IV sticks.
--- NOTE | 2022-02-24 18:11 | ED.GENADULT ---
HPI - General Adult General Chief complaint: Fall Stated complaint: diane GLF at home Time Seen by Provider: 02/24/22 13:53 History of Present Illness HPI narrative: Patient is a 71-year-old male who presents to the ER due to a ground-level fall at home. Patient was discharged from [facility] and drove into his home by paramedics. There they placed him in his recliner. He reports he then dropped his phone and tried to reach for it and fell out of the chair. He did not hit his head or lose consciousness. Reports he cannot get up. EMS was contacted and he was transported here. Patient is unsure why he was at the hospital previously. He reports he thought he had some numbness on his left side and they did an MRI. He is unsure if he was diagnosed with a stroke. He does report that he was diagnosed with a clot in his right lower extremity for which they wanted to amputate his leg but he refused. He has no new pain in that extremity. Patient reports he has been in multiple nursing homes but thought he would give living at home to try. Related Data Home Medications Medication Instructions Recorded Confirmed atorvastatin 40 mg tablet 20 mg PO DAILY 04/10/21 02/24/22 furosemide 20 mg tablet 20 mg PO DAILY 04/10/21 02/24/22 insulin glargine 100 unit/mL (3 20 unit subcut BID 04/10/21 02/24/22 mL) subcutaneous pen (Lantus Solostar U-100 Insulin) isosorbide mononitrate 30 mg 30 mg PO DAILY 04/10/21 02/24/22 tablet,extended release 24 hr apixaban 2.5 mg tablet (Eliquis) 2.5 mg PO BID 12/17/21 02/24/22 furosemide 40 mg tablet 40 mg PO BID 12/17/21 02/24/22 insulin lispro 100 unit/mL 1 sliding scale dose subcut 12/17/21 02/24/22 subcutaneous pen (Humalog KwikPen USEASDIRECTD (U-100) Insulin) metoprolol succinate 25 mg 25 mg PO DAILY 12/17/21 02/24/22 tablet,extended release 24 hr (Toprol XL) oxycodone 5 mg capsule 5 mg PO Q4H PRN Pain 12/17/21 02/24/22 potassium chloride 20 mEq oral 20 meq PO BID 12/17/21 02/24/22 packet ramelteon 8 mg tablet 8 mg PO HS 12/17/21 02/24/22 tamsulosin 0.4 mg capsule 0.4 mg PO HS 12/17/21 02/24/22 acetaminophen 325 mg tablet 325 mg PO Q4-6H PRN Pain 02/24/22 02/24/22 (Tylenol) aspirin 81 mg tablet 81 mg PO DAILY 02/24/22 02/24/22 calcium carbonate 600 mg-vitamin 3 cap PO DAILY 02/24/22 02/24/22 D3 12.5 mcg (500 unit) capsule ferrous sulfate 325 mg (65 mg 325 mg PO DAILY 02/24/22 02/24/22 iron) tablet nitroglycerin 0.4 mg sublingual 0.4 mg sublingual Q5-10M PRN Chest 02/24/22 02/24/22 tablet Pain sennosides 8.6 mg capsule (senna) 8.6 mg PO BID 02/24/22 02/24/22 tolnaftate 1 % topical powder 1 applic topical BID 02/24/22 02/24/22 (Antifungal (tolnaftate)) Allergies Allergy/AdvReac Type Severity Reaction Status Date / Time No Known Allergies Allergy Verified 09/30/21 08:51 Review of Systems Review of Systems: All systems reviewed & are unremarkable except as noted in HPI and below Constitutional: Constitutional: Denies chills and Denies fever(s) Cardiovascular: Cardiovascular: Denies chest pain, Denies rapid heart rate and Denies radiating jaw, neck or arm pain Respiratory: Respiratory: Denies cough and Denies dyspnea Gastrointestinal: Gastrointestinal: Denies abdominal pain, Denies nausea and Denies vomiting Integumentary/Breasts: Skin/Breast: Reports erythema (Chronic over shins bilaterally) and Reports skin ulcer Neurologic: Denies syncope, Denies headache(s) and Denies focal weakness PMFSH Past Medical History Medical History Aortic aneurysm CHF (congestive heart failure) Chronic kidney disease, stage IV (severe) With history of temporary dialysis 2019 Coronary artery disease CVA (cerebral vascular accident) X2 Diabetes Diabetic peripheral neuropathy GERD (gastroesophageal reflux disease) Hypercholesterolemia Hypertension Presbycusis of both ears Subdural hematoma (01/08/21) Acute
--- NOTE | 2022-02-24 18:55 | PC.NURSE ---
Pt declining lab draw and covid swab.
--- NOTE | 2022-02-24 19:00 | PC.NURSE ---
Called Lab to come assist with blood draw x2.
--- NOTE | 2022-02-24 19:56 | PC.NURSE ---
lab unable to obtain blood sample. pt refusing to allow this RN to attempt blood draw.
--- NOTE | 2022-02-24 20:53 | ADMGEN ---
This patient, Chris Pavon, was admitted to Medical Room 243-01. Patient/family oriented to hospital policies and general routines including ID bracelet, bed and alarms, visiting hours, pain management, procedures, bathroom and other care routines, personal items, smoking policy, room service/diet, and visiting hours. Information on how to activate the Rapid Response Team has been discussed. Patient/Family are encouraged to report perceived risks to care and to ask questions if they do not understand what they are told or what they should do.
--- NOTE | 2022-02-24 21:47 | PC.NURSE ---
2130 PT REFUSED BLOOD DRAW WHEN LAB ENTERED ROOM STATED THEY COULD COME BACK IN THE MORNING TO DRAW HIS LABS AND HE WAS DONE FOR THE DAY
[2022-02-24 22:25] LABS: Glucose Point of Care 195 mg/dl (65-105)
[2022-02-24] MEDS: MORPHINE SULFATE (*CRX) 4 MG/ML INJ IV PUSH (22:42)
[2022-02-25] VITALS (8 sets, daily range): BP systolic 98–112; BP diastolic 50–84; PULSE 65–97; RESP 16–20; TEMP 35.9–36.6; O2SAT 94–100; BMI 27.8
--- NOTE | 2022-02-25 01:13 | PM.IMHP ---
H&P: HPI History of Present Illness Date/Time: 02/25/22 00:13 Chief Complaint: Fell Narrative: 71-year-old male with a past medical history of chronic kidney disease stage IV, insulin-dependent diabetes mellitus, heart failure, hypertension, chronic heel wounds and current osteomyelitis of the right foot who presented to the ER for from home via EMS due to recurrent falls. The patient had recently been hospitalized at [facility] for about 10 days due to osteomyelitis of the right heel. Patient was initially treated with IV antibiotics in the switched to p.o.. It is unclear if he supposed to still be on p.o. antibiotics or not. He stated that he was supposed to go to [facility] from [facility] but it did not occur as they cut his antibiotics back to oral antibiotics instead of IV. He then was told that he needed to go to a penitentiary. He refused to go back to a penitentiary as he had been in a penitentiary in November (or so) for a right shoulder fracture. While at that facility he had fall resulting in hip fracture. He was then rehospitalized in December and then discharged to [facility]. He states that he has lawsuit pending against [facility] and he plans to file a lawsuit against [facility] as well. He states that the black staff at the facility is racist against white patient's and does not provide good care. As he would not except discharged to a penitentiary he was discharged home. He was just discharged on the and since he has been home he has already had 2 falls. The patient has chronically S card wounds to bilateral heels that have been present since prior to December. He had an MRI while at [facility] which demonstrated osteomyelitis of the right heel. He was told that the right leg needs to be amputated from below the knee but the patient refused amputation. He has chronic pain issues in his shoulders and extremities. He also reports chronic pain in his upper back. He reports that he cannot eat curled up in a bed in needs to be sitting upright to eat his meals due to history of spina bifida. He has chronic back pain in this area. He has chronic peripheral neuropathy. He denies any nausea or vomiting. His appetite has been good. He urinates small amounts of urine multiple times a day. He denies any dysuria or hematuria. He denies any fevers or chills. He has not had any cough or congestion. He does have chronic hearing loss. The patient reports that he is beginning to have difficulties with his memory. Patient was a difficult historian and perseverated on his concerns regarding the penitentiary. I had difficulty obtaining a complete review of systems. The patient was refusing repeat lab draws in the ER and has yet to consent to lab draw for electrolytes. Status a portion of the patient's med rec has not yet been ordered. Review of Systems Review of Systems: 12 systems were reviewed with pertinent positives and negatives per HPI. Except as documented in the HPI, all other systems were reviewed and are negative. [facility] Past Medical History Medical History (Updated 02/25/22 @ 02:35 by Kellee Grigsby, ) Aortic aneurysm CHF (congestive heart failure) Chronic kidney disease, stage IV (severe) With history of temporary dialysis 2018 with left upper extremity AV fistula Coronary artery disease CVA (cerebral vascular accident) X2 Diabetes mellitus with hyperglycemia, with long-term current use of insulin Diabetic peripheral neuropathy Dislocation of right shoulder joint Approximately August 2021 GERD (gastroesophageal reflux disease) Hypercholesterolemia Hypertension Left humeral fracture September 2021 (conservative management) Presbycusis of both ears Spina bifida Per patient report Subdural hematoma (01/08/21) Acute versus subacute subdural hematoma right frontal and parietal lobes with acute subarachnoid hemorrhage of left parietal lobe s
[2022-02-25] MEDS: TAMSULOSIN HCL 0.4 MG CAPSULE PO ×2 (02:04→20:29)
[2022-02-25 05:56] LABS: Hematocrit 32.1 % (42.0-52.0); Hemoglobin 10.1 g/dL (14.0-18.0); Mean Corpuscular HGB Conc 31.5 g/dl (32-36); Mean Corpuscular Hemoglobin 30.2 pg (26-34); Mean Corpuscular Volume 96.1 fl (80-100); Mean Platelet Volume 9.3 fl (7.4-10.4); Platelet Count Result 202 k/mm3 (150-375); Red Blood Count 3.34 M/mm3 (4.6-6.20); Red Cell Distribution Width 14.1 % (11.5-14.5); White Blood Count 11.7 K/mm3 (4.5-10.0)
[2022-02-25 06:10] LABS: Alanine Aminotransferase 8 U/L (6-50); Albumin Level 2.9 g/dL (3.5-5.1); Alkaline Phosphatase 154 U/L (38-126); Anion Gap 8 mmol/L (8-16); Aspartate Amino Transferase 18 U/L (17-59); Bilirubin,Total 0.3 mg/dL (0.2-1.3); Blood Urea Nitrogen 42 mg/dL (9-20); Calcium 8.9 mg/dL (8.4-10.2); Carbon Dioxide 26 mmol/L (22-30); Chloride 101 mmol/L (98-107); Creatine Kinase 29 U/L (55-170); Estimated CRCL calculation 25 ml/min; Estimated Glomerular Filt Rate 28; Glucose 114 mg/dL (65-110); Potassium 3.8 mmol/L (3.4-5.0); Sodium 135 mmol/L (137-145)
[2022-02-25 08:29] LABS: Glucose Point of Care 116 mg/dl (65-105)
[2022-02-25] MEDS: APIXABAN 2.5 MG TABLET PO ×2 (08:56→20:29)
[2022-02-25] MEDS: FUROSEMIDE 20 MG TABLET PO (08:57)
[2022-02-25] MEDS: METOPROLOL SUCCINATE EXT REL 25 MG TABCR PO (08:59)
[2022-02-25] MEDS: SENNOSIDES 8.6 MG TABLET PO ×2 (08:59→17:49)
[2022-02-25] MEDS: ISOSORBIDE MONONITRATE 30 MG TAB.ER.24H PO (08:59)
[2022-02-25] MEDS: ATORVASTATIN 20 MG TABLET PO (09:00)
[2022-02-25] MEDS: FERROUS SULFATE 324 MG TABLET PO (09:00)
[2022-02-25] MEDS: ASPIRIN 81 MG CHEWABLE TABLET PO (09:01)
[2022-02-25] MEDS: TOLNAFTATE 1% POWDER 45 GM BTL 1 APPLIC TOPICAL ×2 (09:07→17:47)
[2022-02-25] MEDS: INSULIN GLARGINE (*BKC) 100 UNITS/ML 20 UNITS SUB-Q ×2 (09:08→17:44)
--- NOTE | 2022-02-25 12:06 | PM.IMPN ---
Progress Note: A&P Assessment and Plan (1) Physical deconditioning: Code(s): R53.81 - Other malaise Status: Acute Assessment and Plan: PT and OT have been consulted. (2) Chronic heel ulcer: Code(s): L97.409 - Non-pressure chronic ulcer of unspecified heel and midfoot with unspecified severity Status: Acute Assessment and Plan: According to patient he has osteomyelitis of his right heel. He has refused and continues to refuse any sort of amputation which was recommended to him. Will get his old records from [facility] to see what oral antibiotics they had him on. Will resume these. (3) Chronic pain after traumatic injury: Code(s): G89.21 - Chronic pain due to trauma Status: Acute Assessment and Plan: Continue patient's home oxycodone and Tylenol. (4) Chronic kidney disease, stage IV (severe): Code(s): N18.4 - Chronic kidney disease, stage 4 (severe) Status: Acute Assessment and Plan: Patient's current creatinine is not known as patient is refusing further attempts at lab draws. Will attempt to reorder labs in a.m.. (5) Congestive heart failure: Qualifiers: Heart failure chronicity: unspecified Heart failure type: unspecified Qualified Code(s): I50.9 - Heart failure, unspecified Code(s): I50.9 - Heart failure, unspecified Status: Acute Assessment and Plan: Appears euvolemic. Will continue home medications. (6) Diabetes mellitus with hyperglycemia, with long-term current use of insulin: Qualifiers: Diabetes mellitus type: type 2 Qualified Code(s): E11.65 - Type 2 diabetes mellitus with hyperglycemia; Z79.4 - intermediate (current) use of insulin Code(s): E11.65 - Type 2 diabetes mellitus with hyperglycemia; Z79.4 - rn long term care (current) use of insulin Status: Acute Assessment and Plan: Monitor blood sugars Plan Patient has been admitted as observation status. Subjective Date/time seen: 02/25/22 12:06 No new complaints Exam Narrative: Weight 80.5 kg BMI 27.8 Const: Other: Chronically ill-appearing, appears older than stated age, overweight HENMT: Other: Mucous membranes are tacky, teeth not visualized, tongue appear slightly erythematous Eyes: Other: Pupils are equal and reactive, no scleral icterus, no conjunctival pallor Resp: Other: Clear to auscultation anteriorly, no increased work of breathing Cardio: Other: 2/6 systolic murmur heard best at left upper sternal border, regular rate, regular rhythm GI: Other: Distended, nontender, positive bowel sounds : Other: Deferred Skin: Other: Generalized pallor, non jaundice, chronic wounds to bilateral heels Neuro: Other: Alert and oriented times 4, speech is clear, no facial asymmetry, no localizing neurologic deficits noted during the course of casual conversation. Extrem: Other: Large heel wound with overlying eschar of the left heel, smaller wound also covered in eschar on the posterior right heel, generalized pallor, non jaundice Objective Data Vital Signs Vital Signs: Vital Signs - 24 hr 02/24/22 13:57 02/24/22 14:08 02/24/22 13:56 Temperature 97.7 F Pulse Rate 79 83 Respiratory Rate 15 17 Blood Pressure 99/59 L 107/64 Pulse Oximetry 96 95 Oxygen Delivery Room Air 02/24/22 14:01 02/24/22 14:17 02/24/22 16:15 Temperature Pulse Rate 85 84 77 Respiratory Rate 13 16 15 Blood Pressure 99/59 L 123/108 H Pulse Oximetry 93 Oxygen Delivery 02/24/22 16:30 02/24/22 20:28 02/24/22 20:51 Temperature 96.5 F L Pulse Rate 76 83 83 Respiratory Rate 15 20 20 Blood Pressure 108/52 L 111/57 L Pulse Oximetry 99 98 Oxygen Delivery 02/24/22 23:49 02/25/22 04:00 02/25/22 04:37 Temperature 97.1 F L 97.6 F 96.7 F L Pulse Rate 71 74 74 Respiratory Rate 18 18 18 Blood Pressure 98/45 L 108/84 108/84 Pulse Oximetry 98 100 100 Oxygen Delivery
[2022-02-25 12:45] LABS: Glucose Point of Care 172 mg/dl (65-105)
--- NOTE | 2022-02-25 13:21 | PCNSR ---
On 02/25/22, the student, Fariba Murphy, provided care and completed [facility] documentation on this patient. I have reviewed the student's documentation and agree with the findings.
[2022-02-25 17:20] LABS: Glucose Point of Care 161 mg/dl (65-105)
[2022-02-25] MEDS: HYDROcodone/acetaminophen (*CRX) 5-325 MG TABLET 1 TAB PO (17:55)
[2022-02-26 01:30] VITALS: BP 100/61; PULSE 74; RESP 18; TEMP 36.5; O2SAT 97
[2022-02-26 06:36] VITALS: BP 125/58; PULSE 89; RESP 18; TEMP 36.4; O2SAT 97
[2022-02-26 08:00] VITALS: BP 124/60; PULSE 86; RESP 18; TEMP 36.4; O2SAT 96
[2022-02-26] MEDS: HYDROcodone/acetaminophen (*CRX) 5-325 MG TABLET 1 TAB PO (08:10)
[2022-02-26] MEDS: ISOSORBIDE MONONITRATE 30 MG TAB.ER.24H PO (08:15)
[2022-02-26] MEDS: FERROUS SULFATE 324 MG TABLET PO (08:15)
[2022-02-26] MEDS: SENNOSIDES 8.6 MG TABLET PO (08:15)
[2022-02-26] MEDS: ATORVASTATIN 20 MG TABLET PO (08:16)
[2022-02-26] MEDS: METOPROLOL SUCCINATE EXT REL 25 MG TABCR PO (08:16)
[2022-02-26] MEDS: TOLNAFTATE 1% POWDER 45 GM BTL 1 APPLIC TOPICAL (08:16)
[2022-02-26] MEDS: FUROSEMIDE 20 MG TABLET PO (08:16)
[2022-02-26 09:27] LABS: Glucose Point of Care 112 mg/dl (65-105)
[2022-02-26] MEDS: ASPIRIN 81 MG CHEWABLE TABLET PO (10:17)
[2022-02-26] MEDS: INSULIN GLARGINE (*BKC) 100 UNITS/ML 20 UNITS SUB-Q (10:17)
[2022-02-26 12:00] VITALS: BP 126/62; PULSE 84; RESP 18; TEMP 36.5; O2SAT 96
--- NOTE | 2022-02-26 12:12 | PM.DS ---
DS: Admitting Diagnosis Discharge Date February 26, 2022 Admitting Diagnosis Bilateral heel osteomyelitis, debility DS: Discharge Diagnosis Discharge Diagnosis (1) Physical deconditioning: Code(s): R53.81 - Other malaise Status: Acute Assessment and Plan: PT and OT have been consulted. Recommended snf. Patient is refusing certain snf locations. (2) Chronic heel ulcer: Code(s): L97.409 - Non-pressure chronic ulcer of unspecified heel and midfoot with unspecified severity Status: Acute Assessment and Plan: According to patient he has osteomyelitis of his right heel. He has refused and continues to refuse any sort of amputation which was recommended to him. The patient was recently discharged from [facility] and recommended he continue on his home antibiotics which he has had. I have given a 2 week prescription of the same antibiotics Ceftin and doxycycline. He will need to continue these and follow up with his primary care or facility physician for ongoing management. (3) Chronic pain after traumatic injury: Code(s): G89.21 - Chronic pain due to trauma Status: Acute Assessment and Plan: Continue patient's home oxycodone and Tylenol. (4) Chronic kidney disease, stage IV (severe): Code(s): N18.4 - Chronic kidney disease, stage 4 (severe) Status: Acute Assessment and Plan: Patient's current creatinine is not known as patient is refusing further attempts at lab draws. Will attempt to reorder labs in a.m.. (5) Congestive heart failure: Qualifiers: Heart failure chronicity: unspecified Heart failure type: unspecified Qualified Code(s): I50.9 - Heart failure, unspecified Code(s): I50.9 - Heart failure, unspecified Status: Acute Assessment and Plan: Appears euvolemic. Will continue home medications. (6) Diabetes mellitus with hyperglycemia, with long-term current use of insulin: Qualifiers: Diabetes mellitus type: type 2 Qualified Code(s): E11.65 - Type 2 diabetes mellitus with hyperglycemia; Z79.4 - group home (current) use of insulin Code(s): E11.65 - Type 2 diabetes mellitus with hyperglycemia; Z79.4 - group home (current) use of insulin Status: Acute Assessment and Plan: Monitor blood sugars Plan Patient has been admitted as observation status. DS: Summary Hospital Course Hospital Course: Patient was admitted for debility. Likely related to deconditioning from bilateral heel ulcers and osteomyelitis. To note patient was recently seen at [facility] in [place] and discharged on his home antibiotics. At that time he refused amputation and he is also refusing amputation today. Apparently he is also refusing some says detention facilities that he does not want to go to. Case Management is going to work on this for discharge Time Spent with Patient Time attestation: Total time spent providing and/or coordinating discharge services: Exam Narrative: Weight 80.5 kg BMI 27.8 Const: Other: Chronically ill-appearing, appears older than stated age, overweight HENMT: Other: Mucous membranes are tacky, teeth not visualized, tongue appear slightly erythematous Eyes: Other: Pupils are equal and reactive, no scleral icterus, no conjunctival pallor Resp: Other: Clear to auscultation anteriorly, no increased work of breathing Cardio: Other: 2/6 systolic murmur heard best at left upper sternal border, regular rate, regular rhythm GI: Other: Distended, nontender, positive bowel sounds : Other: Deferred Skin: Other: Generalized pallor, non jaundice, chronic wounds to bilateral heels Neuro: Other: Alert and oriented times 4, speech is clear, no facial asymmetry, no localizing neurologic deficits noted during the course of casual conversation. Extrem: Other: Large heel wound with overlying eschar of the left heel, smaller wound a
[2022-02-26 12:27] LABS: Glucose Point of Care 136 mg/dl (65-105)
== END 2022-02-26 16:59 | disposition home health service (06) ==
LOC: ANHED 19:06 → ANH2MED 21:49
PROVIDERS: Internal Medicine; Admitting Provider Family Medicine; Emergency Provider Emergency Medicine; PCP Physician Assistant; Visit Provider Chiropractor
DX: R53.81 Other malaise (principal); L97.409 Non-pressure chronic ulcer of unspecified heel and midfoot with unspecified severity; G89.21 Chronic pain due to trauma; I13.0 Hypertensive heart and chronic kidney disease with heart failure and stage 1 through stage 4 chronic kidney disease, or unspecified chronic kidney disease; E11.22 Type 2 diabetes mellitus with diabetic chronic kidney disease; N18.4 Chronic kidney disease, stage 4 (severe); I50.9 Heart failure, unspecified; E11.65 Type 2 diabetes mellitus with hyperglycemia; E11.42 Type 2 diabetes mellitus with diabetic polyneuropathy; I25.10 Atherosclerotic heart disease of native coronary artery without angina pectoris; K21.9 Gastro-esophageal reflux disease without esophagitis; R29.6 Repeated falls; M86.9 Osteomyelitis, unspecified; E78.00 Pure hypercholesterolemia, unspecified; H91.93 Unspecified hearing loss, bilateral; Z95.828 Presence of other vascular implants and grafts; Z97.4 Presence of external hearing-aid; Z95.2 Presence of prosthetic heart valve; Z95.1 Presence of aortocoronary bypass graft; Z86.73 Personal history of transient ischemic attack (TIA), and cerebral infarction without residual deficits; Z79.4 Long term (current) use of insulin; Z79.01 Long term (current) use of anticoagulants; Z79.891 Long term (current) use of opiate analgesic; Z79.1 Long term (current) use of non-steroidal anti-inflammatories (NSAID); Z79.82 Long term (current) use of aspirin; Z79.899 Other long term (current) drug therapy
CPT/HCPCS: 36415; 80053; 82550; 82948; 85025; 85027; 85610; 85730; 96374; 97110; 97161; 97165; 99285; A9270; G0378; J1815; J2270

== ENCOUNTER 2022-06-24 18:27 | Inpatient (IN) | payer OTHER, SELFPAY ==
--- NOTE | ~2022-06-24 | XR_ITS ---
XR shoulder LT min 2V DATE: 06/25/2022 19:54 INDICATION: Left shoulder pain TECHNIQUE: 4 portable views COMPARISON: None FINDINGS: There is likely chronic left surgical neck humeral fracture with smooth fracture margins an d effective pseudoarthrosis at the fracture site. Normal alignment at the acromioclavicular and glenohumeral joints. Diffuse osteopenia. Status post sternotomy. 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
--- NOTE | ~2022-06-24 | XR_ITS ---
XR shoulder RT min 2V DATE: 06/25/2022 19:54 INDICATION: Fracture TECHNIQUE: Portable 4 view examination COMPARISON: None FINDINGS: There is a likely chronic ununited surgical neck fracture of the right humerus with medial displacement and approximately 100 degrees apex lateral angulation. No dislocation at the acromioclavicular or glenohumeral joints. Status post sternotomy. Degenerative spurring of the thoracic spine. Faceted calcified gallstones. IMPRESSION: Likely chronic ununited surgical neck fracture of the right humerus Osteopenia Degenerative spurring of the thoracic spine Status post sternotomy Cholelithiasis Reviewed, dictated and finalized at location A. ING PLANT SUPERINTENDENT
--- NOTE | ~2022-06-24 | XR_ITS ---
EXAMINATION: XR hip LT 2V w AP pelvis INDICATION: Left hip pain TECHNIQUE: AP view of the pelvis and two views of the left hip are obtained. COMPARISON: 09/30/2021 FINDINGS: There are changes of interval internal fixation of the previously described basicervical fr acture of the proximal left femur. No acute fracture is identified. There is moderate osteoarthritis of the hips. Calcified atherosclerosis is noted. IMPRESSION: 1. No acute osseous abnormality. Reviewed, dictated and finalized at location F. EEPER
--- NOTE | ~2022-06-24 | XR_ITS ---
EXAMINATION: XR chest 1V INDICATION: Weakness TECHNIQUE: AP view of the chest is obtained. COMPARISON: 12/17/2021 FINDINGS: There are patchy opacities of the left mid and lower lung zones. No pleural effusion or pne umothorax. Changes of cardiac valve replacement are noted. There is an age-indeterminate fracture of the proximal right humerus. The humeral head is rotated in the glenohumeral joint. The distal fractur e fragment is overriding. Cholelithiasis is noted. IMPRESSION: 1. Minimal airspace opacities of the left mid and lower lung zones, consistent with atelectasis versu s pneumonia. 2. Age indeterminate fracture of the proximal right humerus with rotation of the humeral head at the glenohumeral joint and overriding of the distal fracture fragment. Reviewed, dictated and finalized at location F. OR SOFTWARE SYSTEMS ENGINEER IMPRESSION: 1. Minimal airspace opacities of the left mid and lower lung zones, consistent with atelectasis versus pneumonia. 2. Age indeterminate fracture of the proximal right humerus with rotation of th e humeral head at the glenohumeral joint and overriding of the distal fracture fragment.
[2022-06-24 19:14] VITALS: BP 108/52; PULSE 107; RESP 18; TEMP 36.3; O2SAT 96
--- NOTE | 2022-06-24 21:43 | ED.GENADULT ---
HPI - General Adult General Chief complaint: Extremity Injury, Lower Stated complaint: L hip pain Time Seen by Provider: 06/24/22 21:31 History of Present Illness HPI narrative: 71-year-old male history of diabetes, chronic kidney disease, CHF, multiple sclerosis presents to the emergency room for chronic left hip pain. [facility], until 3 days ago where he decided to sign out AMA and return to his home. Patient states that they were not taking care of me correctly. Patient admits that he has been on that he has not been able to bathe, change close, feed himself or change his wound dressings. Patient is demanding pain medicine for his left hip and then to return back to his home. Alert and oriented x3. Related Data Home Medications Medication Instructions Recorded Confirmed atorvastatin 40 mg tablet 20 mg PO DAILY 04/10/21 02/24/22 furosemide 20 mg tablet 20 mg PO DAILY 04/10/21 02/24/22 insulin glargine 100 unit/mL (3 20 unit subcut BID 04/10/21 02/24/22 mL) subcutaneous pen (Lantus Solostar U-100 Insulin) isosorbide mononitrate 30 mg 30 mg PO DAILY 04/10/21 02/24/22 tablet,extended release 24 hr furosemide 40 mg tablet 40 mg PO BID 12/17/21 02/24/22 insulin lispro 100 unit/mL 1 sliding scale dose subcut 12/17/21 02/24/22 subcutaneous pen (Humalog KwikPen USEASDIRECTD (U-100) Insulin) metoprolol succinate 25 mg 25 mg PO DAILY 12/17/21 02/24/22 tablet,extended release 24 hr (Toprol XL) oxycodone 5 mg capsule 5 mg PO Q4H PRN Pain 12/17/21 02/24/22 potassium chloride 20 mEq oral 20 meq PO BID 12/17/21 02/24/22 packet ramelteon 8 mg tablet 8 mg PO HS 12/17/21 02/24/22 tamsulosin 0.4 mg capsule 0.4 mg PO HS 12/17/21 02/24/22 acetaminophen 325 mg tablet 325 mg PO Q4-6H PRN Pain 02/24/22 02/24/22 (Tylenol) aspirin 81 mg tablet 81 mg PO DAILY 02/24/22 02/24/22 calcium carbonate 600 mg-vitamin 3 cap PO DAILY 02/24/22 02/24/22 D3 12.5 mcg (500 unit) capsule ferrous sulfate 325 mg (65 mg 325 mg PO DAILY 02/24/22 02/24/22 iron) tablet nitroglycerin 0.4 mg sublingual 0.4 mg sublingual Q5-10M PRN Chest 02/24/22 02/24/22 tablet Pain sennosides 8.6 mg capsule (senna) 8.6 mg PO BID 02/24/22 02/24/22 tolnaftate 1 % topical powder 1 applic topical BID 02/24/22 02/24/22 (Antifungal (tolnaftate)) Allergies Allergy/AdvReac Type Severity Reaction Status Date / Time No Known Allergies Allergy Verified 06/24/22 19:27 Review of Systems Review of Systems: CONSTITUTIONAL: Denies fever, chills, or sweats. EYES: Denies visual changes, redness, or discharge. ENT: Denies rhinorrhea, congestion, sore throat, or otalgia. CARDIOVASCULAR: Denies chest pain, palpitations, or edema. RESPIRATORY: Denies cough or dyspnea. GASTROINTESTINAL: Denies abdominal pain, nausea, vomiting, or diarrhea. GENITOURINARY: Denies dysuria or hematuria. SKIN: Denies rash or itching. MUSCULOSKELETAL: Reports left hip pain NEUROLOGIC: Denies headache, numbness, dizziness, or weakness. PSYCHIATRIC: Denies anxiety or depression. [facility] Past Medical History Medical History Aortic aneurysm CHF (congestive heart failure) Chronic kidney disease, stage IV (severe) With history of temporary dialysis 2019 with left upper extremity AV fistula Coronary artery disease CVA (cerebral vascular accident) X2 Diabetes mellitus with hyperglycemia, with long-term current use of insulin Diabetic peripheral neuropathy Dislocation of right shoulder joint Approximately August 2021 GERD (gastroesophageal reflux disease) Hypercholesterolemia Hypertension Left humeral fracture September 2021 (conservative management) Presbycusis of both ears Spina bifida Per patient report Subdural hematoma (01/08/21) Acute versus subacute subdural hematoma right frontal and parietal lobes with acute subarachnoid hemorrhage of left parietal lobe sulcus, acute subdural versus
[2022-06-24 22:25] LABS: Basophils Absolute Auto 0.1 K/mm3 (0.0-0.1); Basophils Percent Auto 0.7 % (0.2-1.2); Eosinophils Absolute Auto 0.1 K/mm3 (0-0.3); Eosinophils Percent Auto 0.9 % (0-4.4); Hematocrit 39.7 % (42.0-52.0); Hemoglobin 13.1 g/dL (14.0-18.0); Immature Granulocyte Percent A 0.6 % (0-0.5); Lymphocytes Absolute Auto 1.08 K/mm3 (0.9-3.2); Mean Corpuscular Hemoglobin 31.1 pg (26-34); Mean Corpuscular Volume 94.3 fl (80-100); Mean Platelet Volume 9.5 fl (7.4-10.4); Monocytes Absolute Auto 1.4 K/mm3 (0.1-0.6); Monocytes Percent Auto 9.1 % (2.6-8.5); Neutrophils Absolute Auto 12.6 K/mm3 (1.3-6.7); Neutrophils Percent Auto 81.7 % (45.5-73.1); Platelet Count Result 228 k/mm3 (150-375); Red Blood Count 4.21 M/mm3 (4.6-6.20); Red Cell Distribution Width 13.8 % (11.5-14.5); White Blood Count 15.5 K/mm3 (4.5-10.0)
[2022-06-24 22:46] LABS: Alanine Aminotransferase 27 U/L (6-50); Albumin Level 3.8 g/dL (3.5-5.1); Alkaline Phosphatase 239 U/L (38-126); Anion Gap 9 mmol/L (8-16); Aspartate Amino Transferase 37 U/L (17-59); Bilirubin,Total 0.8 mg/dL (0.2-1.3); Blood Urea Nitrogen 62 mg/dL (9-20); Calcium 8.6 mg/dL (8.4-10.2); Carbon Dioxide 27 mmol/L (22-30); Chloride 103 mmol/L (98-107); Estimated CRCL calculation 20 ml/min; Estimated Glomerular Filt Rate 24; Glucose 303 mg/dL (65-110); Potassium 4.7 mmol/L (3.4-5.0); Sodium 139 mmol/L (137-145)
[2022-06-24 22:55] LABS: Appearance Urine Clear (Clear); Bilirubin Urine Negative (Negative); Blood Urine 2+ (Negative); Glucose Urine UA 1+ mg/dL (Negative); Ketones Urine Negative (Negative); Leukocyte Esterase Ur 2+ LEU/UL (Negative); Nitrate Urine Negative (Negative); Protein Urine 2+ mg/dL (Negative); Specific Grav Ur 1.025 (1.001-1.035); Urobilinogen Urine 0.2 mg/dL (<2.0); pH Urine 5.5 (5.0-9.0)
[2022-06-24 22:59] LABS: Budding Yeast Urine Present /hpf; Mucus Urine Rare /lpf; WBC Urine >75 /hpf
[2022-06-24 22:59] LABS: NT Pro B Type Natriuretic Pept 4330 pg/mL (5-100)
[2022-06-24 23:00] LABS: Troponin I 0.067 ng/mL (0.000-0.034)
[2022-06-24 23:01] LABS: Add Urine Microscopic? YES; Color Urine Light Red (Yellow)
--- NOTE | 2022-06-24 23:06 | ECG_ITS ---
Measurements Intervals [place] Rate: 88 P: -67 ME: 207 QRS: -3 QRSD: 137 T: 128 QT: 406 QTc: 493 Interpretive Statements ECTOPIC ATRIAL RHYTHM LEFT BUNDLE BRANCH BLOCK [120+ ms QRS DURATION, 80+ ms Q/S IN V1/V2, 85+ ms R IN I/aVL/V5/V6] ABNORMAL ECG COMPARED TO ECG 09/30/2021 10:37:54 ECTOPIC ATRIAL RHYTHM NOW PRESENT Electronically Signed On 06-25-2022 7:15:29 FACILITY ATTENDANT by Davidson Steele M.D.
[2022-06-24 23:26] LABS: Lactic Acid Reflex 1.7 mmol/L (0.7-2.0)
[2022-06-24 23:33] VITALS: RESP 24
[2022-06-24 23:37] LABS: Influenza A QL RT-PCR Negative (Negative); Influenza B QL RT-PCR Negative (Negative); SARS-CoV-2 RNA PCR Negative
[2022-06-24 23:45] VITALS: PULSE 84; RESP 22
--- NOTE | 2022-06-24 23:45 | PM.IMHP ---
H&P: HPI History of Present Illness Date/Time: 06/24/22 23:45 Chief Complaint: Left hip pain Narrative: This is a 70 only old gentleman with a past medical history including but not limited to congestive heart failure, chronic kidney disease, insulin-dependent diabetes mellitus, multiple sclerosis who presents to the emergency department with complaint of chronic left hip pain. The patient was in his usual state of health until 3 days ago. Currently he lives at an assisted living facility where least decided to sign out AMA and returned to his home. The patient has not be able to care for self at home. He is not able to bathe himself, changes closed, feed himself below changes wound dressings. The patient is requesting pain management and wants to go home. At the time of my evaluation he is hard of hearing, but awake alert and oriented x3. His ideal signs are temperature 36.3?, pulse rate 107, respiratory rate 18, blood pressure 108/52, pulse ox 96% on room air. His labs show WBC of 15.5, hemoglobin 13.1, hematocrit 39.7 and a platelet count of 228. His chemistry shows a serum sodium of 139, potassium 4.7, chloride 103, bicarbonate 27, BUN 62, creatinine 2.6 and blood glucose 203. His LFTs total bilirubin 0.8, AST 37, ALT 27, alkaline phosphatase 239. Troponin 0.067. BNP is 4 330. Total protein is 8 and albumin is 3.8. His urinalysis shows light red urine, 2+ urine protein, 1+ urine glucose, 2+ blood. Nitrate is negative and leukocyte esterase is positive 2+. His chest x-ray shows 1. Minimal airspace opacities of the left mid and lower lung zones, consistent with atelectasis versus pneumonia. 2. Age indeterminate fracture of the proximal right humerus with rotation of the humeral head at the glenohumeral joint and overriding of the distal fracture fragment. Hip x-ray shows: There are changes of interval internal fixation of the previously described basicervical fracture of the proximal left femur. No acute fracture is identified. There is moderate osteoarthritis of the hips. Calcified atherosclerosis is noted. In the emergency department the patient was started on ceftriaxone and azithromycin. The hospital medicine service was consulted for further evaluation and management. The patient is admitted under inpatient services for at least 2 midnight. Review of Systems Review of Systems: CONSTITUTIONAL: Negative for any fevers, chills, night sweats, tiredness, fatigue, malaise, anorexia or weight loss. CARDIOVASCULAR: Negative for chest pain, palpitations, dizziness, orthopnea or lower extremity edema. RESPIRATORY: Negative for shortness of breath, cough, wheezing, sputum. GENITOURINARY: Negative for frequency, nocturia, dysuria, hematuria. GYNECOLOGIC: Negative for abnormal bleeding. HEMATOLOGIC: Negative for any abnormal bleeding or bruising. MUSCULOSKELETAL: Reports left hip pain. Negative for joint swelling, stiffness or pain. SKIN: Negative for rashes, eruptions, lesions or dryness. NEUROLOGIC: Negative for any focal neurologic complaints. PSYCHIATRIC: Negative for anxiety, panic, depression. All systems reviewed & are unremarkable except as noted in HPI and below PMFSH Past Medical History Medical History Aortic aneurysm CHF (congestive heart failure) Chronic kidney disease, stage IV (severe) With history of temporary dialysis 2019 with left upper extremity AV fistula Coronary artery disease CVA (cerebral vascular accident) X2 Diabetes mellitus with hyperglycemia, with long-term current use of insulin Diabetic peripheral neuropathy Dislocation of right shoulder joint Approximately August 2021 GERD (gastroesophageal reflux disease) Hypercholesterolemia Hypertension Left humeral fracture September 2021 (conservative management) Presbycusis of both ears Spina bifida Per patient report Subdural hematoma (01/08/21) Acute versus subacute subdural hematoma right frontal and parieta
[2022-06-24 23:59] LABS: Creatine Kinase < 20 U/L (55-170)
[2022-06-25] VITALS (15 sets, daily range): BP systolic 109–135; BP diastolic 49–68; PULSE 70–96; RESP 12–23; TEMP 36.4–36.9; O2SAT 97–100; BMI 24.3
--- NOTE | 2022-06-25 00:32 | PC.NURSE ---
attempted to obtain blood cultures times 3 patient is no refusing blood culutures provider aware.
--- NOTE | 2022-06-25 03:28 | ADMGEN ---
This patient, Chris Pavon, was admitted to IMU Room 205-02. Patient/family oriented to hospital policies and general routines including ID bracelet, bed and alarms, visiting hours, pain management, procedures, bathroom and other care routines, personal items, smoking policy, room service/diet, and visiting hours. Information on how to activate the Rapid Response Team has been discussed. Patient/Family are encouraged to report perceived risks to care and to ask questions if they do not understand what they are told or what they should do.
--- NOTE | 2022-06-25 05:22 | PC.NURSE ---
Patient refusing blood cultures, MD Damien aware.
[2022-06-25] MEDS: HEPARIN SODIUM 5,000 UNITS/ML VIAL 5000 UNITS SUB-Q ×3 (06:02→21:00)
[2022-06-25] MEDS: ACETAMINOPHEN 325 MG TABLET PO (06:38)
[2022-06-25 08:00] LABS: Glucose Point of Care 280 mg/dl (65-105)
[2022-06-25] MEDS: INSULIN ASPART (*BKC) 100 UNITS/ML SUB-Q ×3 (08:49→17:37)
[2022-06-25] MEDS: FUROSEMIDE 20 MG TABLET PO (08:50)
[2022-06-25] MEDS: ASPIRIN 81 MG CHEWABLE TABLET PO (08:50)
[2022-06-25] MEDS: POTASSIUM CHLORIDE 20 MEQ PACKET (FOR LIQUID) PO ×2 (08:50→17:36)
[2022-06-25] MEDS: ATORVASTATIN 20 MG TABLET PO (08:50)
[2022-06-25] MEDS: EUCERIN CREAM 120 GM JAR 1 APPLIC TOPICAL (08:51)
[2022-06-25 09:43] LABS: Troponin I 0.074 ng/mL (0.000-0.034)
[2022-06-25] MEDS: ACETAMINOPHEN 325 MG TABLET 650 MG PO (11:20)
--- NOTE | 2022-06-25 12:23 | P.CDI_ITS ---
CDI Query Clarified Diagnosis Clarified Diagnosis: BNP elevated on 06/24/22 lab work. CHF noted on assessment and plan. History of CHF documented. Pt receiving furosemide. Please specify type and acuity of heart failure if known. * Acute * Chronic * Acute on Chronic * Unknown * Systolic * Diastolic * Combined Systolic and Diastolic * Unknown
--- NOTE | 2022-06-25 12:23 | WPDCDIQUERY2 ---
CDI Query Clarified Diagnosis Clarified Diagnosis: BNP elevated on 06/24/22 lab work. CHF noted on assessment and plan. History of CHF documented. Pt receiving furosemide. Please specify type and acuity of heart failure if known. Acute Chronic Acute on Chronic Unknown Systolic Diastolic Combined Systolic and Diastolic Unknown
[2022-06-25] MEDS: SILVERGEL (ELTA) 45 ML 1 APPLIC TOPICAL (15:08)
[2022-06-25 16:37] LABS: Glucose Point of Care 251 mg/dl (65-105)
--- NOTE | 2022-06-25 18:34 | PM.IMPN ---
Progress Note: A&P Assessment and Plan (1) Uncontrolled diabetes mellitus: Status: Acute Assessment and Plan: Patient admitted with elevated blood glucose of 303. This is likely secondary to noncompliance. Patient blood glucose will be monitored a.c. and HS. He is on medication will be reinstated. Insulin sliding scale coverage. Monitor the Accu-Chek. (2) Unable to care for self: Code(s): Z78.9 - Other specified health status Status: Acute Assessment and Plan: Due to generalized weakness and deconditioning patient has been unable to care for himself. certified social workers in health care evaluation for placement issue. The PT OT evaluation was inpatient. (3) Generalized weakness: Code(s): R53.1 - Weakness Status: Acute Assessment and Plan: Likely secondary to deconditioning and his multiple comorbidities. Physical therapy evaluation and management. (4) Congestive heart failure: Code(s): I50.9 - Heart failure, unspecified Status: Acute Assessment and Plan: Currently no evidence of exacerbation. Continue home management. (5) Acute on chronic renal insufficiency: Code(s): N28.9 - Disorder of kidney and ureter, unspecified; N18.9 - Chronic kidney disease, unspecified Status: Acute Assessment and Plan: Unknown basal renal function with while fluctuations of creatinine since July 2018. Most recent creatinine was 2.3 on 02/26/2020 2. On yesterday's labs creatinine was 2.6. Monitor intake and output. Avoid nephrotoxic medications. Obtain renal bladder ultrasound. (6) Community acquired pneumonia: Code(s): J18.9 - Pneumonia, unspecified organism Status: Acute Assessment and Plan: Chest x-ray reveals a minimal airspace opacities of the left mid and lower lung zones, consistent with atelectasis versus pneumonia. Patient was appropriately started on combination of Rocephin and azithromycin. (7) Acute UTI: Code(s): N39.0 - Urinary tract infection, site not specified Status: Acute Assessment and Plan: Urinalysis shows pyuria. The patient was appropriately started on ceftriaxone. Follow cultures. (8) Chronic wound of extremity: Status: Acute Assessment and Plan: Wound care evaluation management. (9) Fracture of left humerus: Code(s): S42.302A - Unspecified fracture of shaft of humerus, left arm, initial encounter for closed fracture Status: Acute Assessment and Plan: Ortho eval Plan Patient is a full code. He was admitted inpatient under hospitalist services. DVT prophylaxis is with heparin. Subjective Date/time seen: 06/25/22 18:34 Patient is feeling slightly better. Mild sob, no chest pain. No abdominal pain, no nausea. Mood stable. Review of Systems Review of Systems: All systems reviewed & are unremarkable except as noted in HPI and below Exam Narrative: GENERAL: The patient is alert and oriented, in no apparent distress. He is cantankerous and conversant in full sentences. HEENT: Pupils are equally round and reactive to light. Extraocular muscles are intact. Oral mucous membranes are moist without lesions. NECK: The patient has no noted JVD. No cervical palpable lymphadenopathy. CHEST/LUNGS: Lungs are clear bilaterally without rhonchi, rales, or wheezes. There is no subcutaneous air appreciated. There is no tenderness to the chest wall. HEART: The patient has a regular rate and rhythm. No murmurs, rubs, or gallops are appreciated. Distal pulses are 2+. No carotid bruits appreciated. ABDOMEN: The patient?s abdomen is soft, nontender, and nondistended. Bowel sounds are positive. No organomegaly is appreciated. No masses are appreciated. There are no peritoneal signs. There is no Peterson?s sign. EXTREMITIES: The patient has no peripheral edema. left upper extremity rom slightly painful. SKIN: The patient?s skin is warm and dry, without rashes or lesions. PSYCHIATRIC: The patient has n
[2022-06-25 20:09] LABS: Glucose Point of Care 184 mg/dl (65-105)
[2022-06-25] MEDS: TAMSULOSIN HCL 0.4 MG CAPSULE PO (20:52)
[2022-06-25] MEDS: INSULIN GLARGINE (*BKC) 100 UNITS/ML 11 UNITS SUB-Q (20:58)
[2022-06-26] VITALS (14 sets, daily range): BP systolic 106–125; BP diastolic 40–53; PULSE 77–90; RESP 12–32; TEMP 36.4–37.1; O2SAT 97–99
[2022-06-26 00:08] LABS: Glucose Point of Care 299 mg/dl (65-105)
[2022-06-26] MEDS: HEPARIN SODIUM 5,000 UNITS/ML VIAL 5000 UNITS SUB-Q ×3 (05:51→21:40)
[2022-06-26 06:08] LABS: Basophils Absolute Auto 0.1 K/mm3 (0.0-0.1); Basophils Percent Auto 0.8 % (0.2-1.2); Eosinophils Absolute Auto 0.4 K/mm3 (0-0.3); Eosinophils Percent Auto 3.3 % (0-4.4); Hemoglobin 11.2 g/dL (14.0-18.0); Immature Granulocyte Absolute 0.08 K/mm3 (0.00-0.031); Immature Granulocyte Percent A 0.7 % (0-0.5); Lymphocytes Percent Auto 13.6 % (18.3-44.2); Mean Corpuscular Hemoglobin 30.5 pg (26-34); Mean Corpuscular Volume 95.4 fl (80-100); Mean Platelet Volume 9.7 fl (7.4-10.4); Monocytes Absolute Auto 1.1 K/mm3 (0.1-0.6); Monocytes Percent Auto 10.3 % (2.6-8.5); Neutrophils Absolute Auto 7.9 K/mm3 (1.3-6.7); Neutrophils Percent Auto 71.3 % (45.5-73.1); Platelet Count Result 218 k/mm3 (150-375); Red Blood Count 3.67 M/mm3 (4.6-6.20); Red Cell Distribution Width 13.6 % (11.5-14.5)
[2022-06-26 06:38] LABS: Alanine Aminotransferase 27 U/L (6-50); Alkaline Phosphatase 191 U/L (38-126); Anion Gap 6 mmol/L (8-16); Aspartate Amino Transferase 33 U/L (17-59); Bilirubin,Total 0.3 mg/dL (0.2-1.3); Blood Urea Nitrogen 53 mg/dL (9-20); Carbon Dioxide 24 mmol/L (22-30); Chloride 109 mmol/L (98-107); Estimated CRCL calculation 24 ml/min; Estimated Glomerular Filt Rate 26; Glucose 195 mg/dL (65-110); Potassium 3.9 mmol/L (3.4-5.0); Sodium 139 mmol/L (137-145)
[2022-06-26] MEDS: ACETAMINOPHEN 325 MG TABLET 650 MG PO ×2 (07:55→17:02)
[2022-06-26] MEDS: FUROSEMIDE 20 MG TABLET PO (07:57)
[2022-06-26] MEDS: POTASSIUM CHLORIDE 20 MEQ PACKET (FOR LIQUID) PO ×2 (07:57→16:57)
[2022-06-26] MEDS: ASPIRIN 81 MG CHEWABLE TABLET PO (07:57)
[2022-06-26] MEDS: ATORVASTATIN 20 MG TABLET PO (07:57)
[2022-06-26] MEDS: EUCERIN CREAM 120 GM JAR 1 APPLIC TOPICAL (07:58)
[2022-06-26 07:59] LABS: Glucose Point of Care 200 mg/dl (65-105)
--- NOTE | 2022-06-26 08:57 | PCPTNOTE ---
Attempted PT evaluation, pt refused for multiple reasons. Despite therapist encouragement, pt continued to refuse. RN aware. Will Follow.
--- NOTE | 2022-06-26 09:10 | PCOTNOTE ---
Patient refuses OT evaluation for multiple reasons. RN aware. Will Follow.
--- NOTE | 2022-06-26 09:26 | PCDIET ---
Noted pt has an unstageable pressure injury to both heels. Recommend to add FELIPE BID for wound healing.
[2022-06-26] MEDS: SILVERGEL (ELTA) 45 ML 1 APPLIC TOPICAL (09:50)
--- NOTE | 2022-06-26 11:55 | PM.IMPN ---
Progress Note: A&P Assessment and Plan (1) Uncontrolled diabetes mellitus: Status: Acute Assessment and Plan: Accu-Cheks are in the 184-257 range. Patient was admitted with elevated blood glucose of 303. This is likely secondary to noncompliance. Patient blood glucose will be monitored a.c. and HS. He is on medication will be reinstated. Insulin sliding scale coverage. Monitor the Accu-Chek. (2) Unable to care for self: Code(s): Z78.9 - Other specified health status Status: Acute Assessment and Plan: Due to generalized weakness and deconditioning patient has been unable to care for himself. putty worker evaluation for placement issue. Continue PT OT management. (3) Generalized weakness: Code(s): R53.1 - Weakness Status: Acute Assessment and Plan: Likely secondary to deconditioning and his multiple comorbidities. Physical therapy evaluation and management. (4) Congestive heart failure: Code(s): I50.9 - Heart failure, unspecified Status: Acute Assessment and Plan: Currently no evidence of exacerbation. Continue home management. (5) Acute on chronic renal insufficiency: Code(s): N28.9 - Disorder of kidney and ureter, unspecified; N18.9 - Chronic kidney disease, unspecified Status: Acute Assessment and Plan: Mild elevation of creatinine at 2.5. Unknown basal renal function with while fluctuations of creatinine since July 2018. Most recent creatinine was 2.3 on 02/26/2020 2. On yesterday's labs creatinine was 2.6. Monitor intake and output. Avoid nephrotoxic medications. There were no morphologic abnormalities on the renal bladder ultrasound 2020. (6) Community acquired pneumonia: Code(s): J18.9 - Pneumonia, unspecified organism Status: Acute Assessment and Plan: Chest x-ray reveals a minimal airspace opacities of the left mid and lower lung zones, consistent with atelectasis versus pneumonia. Patient was appropriately started on combination of Rocephin and azithromycin. (7) Acute UTI: Code(s): N39.0 - Urinary tract infection, site not specified Status: Acute Assessment and Plan: Urinalysis shows pyuria. The continue ceftriaxone. Blood cultures unrevealing. Urine cultures growing Bita albicans. (8) Chronic wound of extremity: Status: Acute Assessment and Plan: Wound care evaluation management. (9) Fracture of left humerus: Code(s): S42.302A - Unspecified fracture of shaft of humerus, left arm, initial encounter for closed fracture Status: Acute Assessment and Plan: Ortho eval Plan Patient is a full code. He was admitted inpatient under hospitalist services. DVT prophylaxis is with heparin. Time Spent With Patient Time with patient: 15 - 25 minutes Subjective Date/time seen: 06/26/22 18:55 Interval history: S: Patient was seen examined at the bedside. He is feeling better. He denies any complaints. Review of Systems Review of Systems: All systems reviewed & are unremarkable except as noted in HPI and below Exam Narrative: GENERAL: The patient is alert and oriented, in no apparent distress. He is cantankerous and conversant in full sentences. HEENT: Pupils are equally round and reactive to light. Extraocular muscles are intact. Oral mucous membranes are moist without lesions. NECK: The patient has no noted JVD. No cervical palpable lymphadenopathy. CHEST/LUNGS: Lungs are clear bilaterally without rhonchi, rales, or wheezes. There is no subcutaneous air appreciated. There is no tenderness to the chest wall. HEART: The patient has a regular rate and rhythm. No murmurs, rubs, or gallops are appreciated. Distal pulses are 2+. No carotid bruits appreciated. ABDOMEN: The patient?s abdomen is soft, nontender, and nondistended. Bowel sounds are positive. No organomegaly is appreciated. No masses are appreciated. There are no peritoneal signs. There i
[2022-06-26 12:18] LABS: Glucose Point of Care 257 mg/dl (65-105)
[2022-06-26] MEDS: INSULIN ASPART (*BKC) 100 UNITS/ML SUB-Q (12:31)
--- NOTE | 2022-06-26 13:47 | PM.CNOR ---
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 I discussed with him the implications of this. From my standpoint there are no restrictions with respect to trying to mobilize him. He is uncomfortable. He has got a multitude of medical problems. If he wishes to have a attempted surgically, he would be best served by going to see the shoulder section at [place]. History of Present Illness HPI Consult date: 06/26/22 Chief complaint: Failure to thrive Narrative: 71-year-old male consult for left proximal humerus fracture. It turns out he has left and right proximal humerus fractures. The right her this past year and in November about a month later the left one happened. These are chronic. He has already been evaluated by other orthopedic surgeons who opted not to operate on these. Review of Systems Constitutional: Constitutional: Reports no additional constitutional complaints, Denies excessive sweating and Denies fatigue Eyes: Eyes: Reports no additional eye complaints ENT: Reports system reviewed and no additional complaints, except as documented Cardiovascular: Cardiovascular: Denies chest pain at rest and Denies dyspnea Respiratory: Respiratory: Reports no additional respiratory complaints and Denies dyspnea Gastrointestinal: Gastrointestinal: Reports no additional gastrointestinal complaints Musculoskeletal: Musculoskeletal: Reports as per HPI Integumentary/Breasts: Skin/Breast: Reports system reviewed and no additional complaints, except as docu Neurologic: Reports as per HPI Endocrine: Endocrine: Denies excessive sweating and Denies fatigue Hematologic/Lymphatic: Hematologic/Lymphatic: Denies easy bleeding and Denies easy bruising [facility] Past Medical History Medical History (Updated 06/26/22 @ 13:51 by Ervin Cr MD) Aortic aneurysm CHF (congestive heart failure) Chronic kidney disease, stage IV (severe) With history of temporary dialysis 2019 with left upper extremity AV fistula Closed fracture of both humeri with nonunion both occurred in spring Coronary artery disease CVA (cerebral vascular accident) X2 Diabetes mellitus with hyperglycemia, with long-term current use of insulin Diabetic peripheral neuropathy Dislocation of right shoulder joint Approximately August 2021 GERD (gastroesophageal reflux disease) Hypercholesterolemia Hypertension Left humeral fracture September 2021 (conservative management) Presbycusis of both ears Spina bifida Per patient report Subdural hematoma (01/08/21) Acute versus subacute subdural hematoma right frontal and parietal lobes with acute subarachnoid hemorrhage of left parietal lobe sulcus, acute subdural versus subarachnoid hemorrhage left of the frontal falx Surgical History Surgical History History of aortic valve replacement Bioprosthetic or tissue Hx of CABG (~2006) Three vessel CABG performed in [place] Status post cataract extraction of both eyes with insertion of intraocular lens Status post open reduction with internal fixation of fracture Basal cervical fracture proximal left femur evaluated at [facility] and transferred to [place] Surgically constructed arteriovenous fistula (~2018) Family History Family History Sibling Colon cancer Mother Cancer Social History Social History Social History: He is and lives alone. He does not have any children. He is a lifelong nonsmoker and does not drink alcohol. He used to
[2022-06-26 20:02] LABS: Glucose Point of Care 167 mg/dl (65-105)
[2022-06-26 20:41] LABS: Glucose Point of Care 179 mg/dl (65-105)
[2022-06-26] MEDS: INSULIN GLARGINE (*BKC) 100 UNITS/ML 11 UNITS SUB-Q (21:39)
[2022-06-26] MEDS: TAMSULOSIN HCL 0.4 MG CAPSULE PO (21:40)
[2022-06-27] VITALS (14 sets, daily range): BP systolic 101–145; BP diastolic 37–64; PULSE 69–90; RESP 20–22; TEMP 36.6–36.8; O2SAT 92–99
[2022-06-27] MEDS: ACETAMINOPHEN 325 MG TABLET 650 MG PO (01:30)
[2022-06-27] MEDS: HEPARIN SODIUM 5,000 UNITS/ML VIAL 5000 UNITS SUB-Q ×3 (05:24→20:54)
[2022-06-27 07:59] LABS: Glucose Point of Care 155 mg/dl (65-105)
--- NOTE | 2022-06-27 08:25 | PM.IMPN ---
Progress Note: A&P Assessment and Plan (1) Uncontrolled diabetes mellitus: Status: Acute Assessment and Plan: Accu-Cheks are improving in the 155-179 range. Patient was admitted with elevated blood glucose of 303. This is likely secondary to noncompliance. Patient blood glucose will be monitored a.c. and HS. He is on medication will be reinstated. Insulin sliding scale coverage. Monitor the Accu-Chek. (2) Unable to care for self: Code(s): Z78.9 - Other specified health status Status: Acute Assessment and Plan: Due to generalized weakness and deconditioning patient has been unable to care for himself. social worker palliative care evaluation for placement issue. Continue PT OT management. (3) Generalized weakness: Code(s): R53.1 - Weakness Status: Acute Assessment and Plan: Likely secondary to deconditioning and his multiple comorbidities. Physical therapy evaluation and management. (4) Congestive heart failure: Code(s): I50.9 - Heart failure, unspecified Status: Acute Assessment and Plan: Currently no evidence of exacerbation. Continue home management. (5) Acute on chronic renal insufficiency: Code(s): N28.9 - Disorder of kidney and ureter, unspecified; N18.9 - Chronic kidney disease, unspecified Status: Acute Assessment and Plan: Mild elevation of creatinine at 2.5. Unknown basal renal function with while fluctuations of creatinine since July 2018. Most recent creatinine was 2.3 on 02/26/2020 2. On yesterday's labs creatinine was 2.6. Monitor intake and output. Avoid nephrotoxic medications. There were no morphologic abnormalities on the renal bladder ultrasound 2020. (6) Community acquired pneumonia: Code(s): J18.9 - Pneumonia, unspecified organism Status: Acute Assessment and Plan: Chest x-ray reveals a minimal airspace opacities of the left mid and lower lung zones, consistent with atelectasis versus pneumonia. Patient was appropriately started on combination of Rocephin and azithromycin. (7) Acute UTI: Code(s): N39.0 - Urinary tract infection, site not specified Status: Acute Assessment and Plan: Urinalysis shows pyuria. The continue ceftriaxone. Blood cultures unrevealing. Urine cultures growing Bita albicans. (8) Chronic wound of extremity: Status: Acute Assessment and Plan: Wound care evaluation management. (9) Fracture of left humerus: Code(s): S42.302A - Unspecified fracture of shaft of humerus, left arm, initial encounter for closed fracture Status: Acute Assessment and Plan: per ortho evaluation, the patient has chronic bilateral humeral nonunion. Patient is uncomfortable. Continue pain management. Referral to shoulder section at 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 Plan Patient is a full code. He was admitted inpatient under hospitalist services. DVT prophylaxis is with heparin. Time Spent With Patient Time with patient: 15 - 25 minutes Subjective Date/time seen: 06/27/22 08:25 Interval history: Patient was seen and examined at the bedside. He is in good spirits. He denies any complaints. Review of Systems Review of Systems: All systems reviewed & are unremarkable except as noted in HPI and below Constitutional: Constitutional: Reports as per HPI, Denies chills, Denies excessive sweating and Denies fever(s) Eyes: Eyes: Reports as per HPI and Denies blurry vision ENT: Reports system reviewed and no additional complaints, except as documented, Denies dysphagia, Denies epistaxis and Denies nasal congestion C
[2022-06-27] MEDS: ATORVASTATIN 20 MG TABLET PO (08:39)
[2022-06-27] MEDS: ASPIRIN 81 MG CHEWABLE TABLET PO (08:39)
[2022-06-27] MEDS: SILVERGEL (ELTA) 45 ML 1 APPLIC TOPICAL (08:39)
[2022-06-27] MEDS: EUCERIN CREAM 120 GM JAR 1 APPLIC TOPICAL (08:40)
[2022-06-27] MEDS: FUROSEMIDE 20 MG TABLET PO (08:42)
[2022-06-27] MEDS: HYDROcodone/acetaminophen (*CRX) 5-325 MG TABLET 1 TAB PO ×2 (08:44→20:48)
--- NOTE | 2022-06-27 09:21 | PCOTNOTE ---
Attempted OT evaluation, patient refuses therapy at this time stating it doesn't make sense until he goes to [place] to work on his arms . Will follow.
--- NOTE | 2022-06-27 09:21 | PCPTNOTE ---
Patient refused therapy states it doesn't make sense until he can go to [place] for them to work on his arms.
[2022-06-27 09:58] LABS: Iron 53 ug/dL (49-181)
[2022-06-27 10:07] LABS: Percent Iron Saturation 30 % (20-50)
[2022-06-27 12:37] LABS: Glucose Point of Care 215 mg/dl (65-105)
[2022-06-27] MEDS: POTASSIUM CHLORIDE 20 MEQ PACKET (FOR LIQUID) PO ×2 (13:19→17:02)
[2022-06-27] MEDS: INSULIN ASPART (*BKC) 100 UNITS/ML SUB-Q (13:20)
[2022-06-27 16:47] LABS: Glucose Point of Care 172 mg/dl (65-105)
[2022-06-27 17:50] LABS: Glucose Point of Care 186 mg/dl (65-105)
[2022-06-27 20:17] LABS: Glucose Point of Care 177 mg/dl (65-105)
[2022-06-27] MEDS: TAMSULOSIN HCL 0.4 MG CAPSULE PO (20:48)
[2022-06-27] MEDS: INSULIN GLARGINE (*BKC) 100 UNITS/ML 11 UNITS SUB-Q (20:51)
[2022-06-28] VITALS (7 sets, daily range): BP systolic 100–115; BP diastolic 41–64; PULSE 75–106; RESP 12–20; TEMP 36.4–36.8; O2SAT 92–100
[2022-06-28] MEDS: HYDROcodone/acetaminophen (*CRX) 5-325 MG TABLET 1 TAB PO ×3 (06:22→18:49)
[2022-06-28] MEDS: HEPARIN SODIUM 5,000 UNITS/ML VIAL 5000 UNITS SUB-Q ×3 (06:22→22:31)
[2022-06-28 08:11] LABS: Glucose Point of Care 117 mg/dl (65-105)
[2022-06-28] MEDS: ATORVASTATIN 20 MG TABLET PO (08:20)
[2022-06-28] MEDS: FUROSEMIDE 20 MG TABLET PO (08:20)
[2022-06-28] MEDS: POTASSIUM CHLORIDE 20 MEQ PACKET (FOR LIQUID) PO ×2 (08:20→17:10)
[2022-06-28] MEDS: ASPIRIN 81 MG CHEWABLE TABLET PO (08:20)
[2022-06-28] MEDS: SILVERGEL (ELTA) 45 ML 1 APPLIC TOPICAL (08:23)
[2022-06-28] MEDS: EUCERIN CREAM 120 GM JAR 1 APPLIC TOPICAL (08:23)
[2022-06-28 12:46] LABS: Anion Gap 3 mmol/L (8-16); Blood Urea Nitrogen 49 mg/dL (9-20); Calcium 8.6 mg/dL (8.4-10.2); Carbon Dioxide 28 mmol/L (22-30); Chloride 102 mmol/L (98-107); Estimated CRCL calculation 26 ml/min; Estimated Glomerular Filt Rate 28; Glucose 165 mg/dL (65-110); Sodium 133 mmol/L (137-145)
--- NOTE | 2022-06-28 13:53 | PM.IMPN ---
Progress Note: A&P Assessment and Plan (1) Uncontrolled diabetes mellitus: Status: Acute Assessment and Plan: Accu-Cheks are improving in the 155-179 range. Patient was admitted with elevated blood glucose of 303. This is likely secondary to noncompliance. Patient blood glucose will be monitored a.c. and HS. He is on medication will be reinstated. Insulin sliding scale coverage. Monitor the Accu-Chek. (2) Unable to care for self: Code(s): Z78.9 - Other specified health status Status: Acute Assessment and Plan: Due to generalized weakness and deconditioning patient has been unable to care for himself. dam worker evaluation for placement issue. Continue PT OT management. (3) Generalized weakness: Code(s): R53.1 - Weakness Status: Acute Assessment and Plan: Likely secondary to deconditioning and his multiple comorbidities. Physical therapy evaluation and management. (4) Congestive heart failure: Code(s): I50.9 - Heart failure, unspecified Status: Acute Assessment and Plan: Currently no evidence of exacerbation. Continue home management. (5) Acute on chronic renal insufficiency: Code(s): N28.9 - Disorder of kidney and ureter, unspecified; N18.9 - Chronic kidney disease, unspecified Status: Acute Assessment and Plan: Mild elevation of creatinine at 2.5. Unknown basal renal function with while fluctuations of creatinine since July 2018. Most recent creatinine was 2.3 on 02/26/2020 2. On yesterday's labs creatinine was 2.6. Monitor intake and output. Avoid nephrotoxic medications. There were no morphologic abnormalities on the renal bladder ultrasound 2020. (6) Community acquired pneumonia: Code(s): J18.9 - Pneumonia, unspecified organism Status: Acute Assessment and Plan: Chest x-ray reveals a minimal airspace opacities of the left mid and lower lung zones, consistent with atelectasis versus pneumonia. Patient was appropriately started on combination of Rocephin and azithromycin. (7) Acute UTI: Code(s): N39.0 - Urinary tract infection, site not specified Status: Acute Assessment and Plan: Urinalysis shows pyuria. The continue ceftriaxone. Blood cultures unrevealing. Urine cultures growing Bita albicans. (8) Chronic wound of extremity: Status: Acute Assessment and Plan: Wound care evaluation management. (9) Fracture of left humerus: Code(s): S42.302A - Unspecified fracture of shaft of humerus, left arm, initial encounter for closed fracture Status: Acute Assessment and Plan: per ortho evaluation, the patient has chronic bilateral humeral nonunion. Patient is uncomfortable. Continue pain management. Referral to shoulder section at [facility]. 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 Plan Patient is a full code. He was admitted inpatient under hospitalist services. DVT prophylaxis is with heparin. Subjective Date/time seen: 06/28/22 13:53 Doing well, not on oxygen. No new complaints Exam Narrative: GENERAL: The patient is alert and oriented, in no apparent distress. He is cantankerous and conversant in full sentences. HEENT: Pupils are equally round and reactive to light. Extraocular muscles are intact. Oral mucous membranes are moist without lesions. NECK: The patient has no noted JVD. No cervical palpable lymphadenopathy. CHEST/LUNGS: Lungs are clear bilaterally without rhonchi, rales, or wheezes. There is no subcutaneous air appreciated. There is no tenderness to the chest wall. HEART: The patient has a regular rate and rhythm. No
[2022-06-28 16:05] LABS: Glucose Point of Care 158 mg/dl (65-105)
[2022-06-28 17:10] LABS: Glucose Point of Care 169 mg/dl (65-105)
--- NOTE | 2022-06-28 18:22 | PC.NURSE ---
This patient, Chris Pavon, was transferred to [[facility] ] on 06/28/22 at 1822. Personal belongings sent with patient. Report given to [Eve]. Appropriate documentation sent with patient.
[2022-06-28 20:56] LABS: Glucose Point of Care 212 mg/dl (65-105)
[2022-06-28] MEDS: INSULIN GLARGINE (*BKC) 100 UNITS/ML 11 UNITS SUB-Q (22:32)
[2022-06-28] MEDS: TAMSULOSIN HCL 0.4 MG CAPSULE PO (22:32)
[2022-06-29 03:36] VITALS: BP 112/53; PULSE 75; RESP 18; TEMP 36.4; O2SAT 97
[2022-06-29] MEDS: HEPARIN SODIUM 5,000 UNITS/ML VIAL 5000 UNITS SUB-Q (06:52)
[2022-06-29] MEDS: ATORVASTATIN 20 MG TABLET PO (09:18)
[2022-06-29] MEDS: FUROSEMIDE 20 MG TABLET PO (09:18)
[2022-06-29] MEDS: POTASSIUM CHLORIDE 20 MEQ PACKET (FOR LIQUID) PO (09:18)
[2022-06-29] MEDS: ASPIRIN 81 MG CHEWABLE TABLET PO (09:18)
[2022-06-29] MEDS: EUCERIN CREAM 120 GM JAR 1 APPLIC TOPICAL (09:19)
[2022-06-29] MEDS: SILVERGEL (ELTA) 45 ML 1 APPLIC TOPICAL (09:20)
[2022-06-29 09:28] LABS: Glucose Point of Care 153 mg/dl (65-105)
[2022-06-29] MEDS: HYDROcodone/acetaminophen (*CRX) 5-325 MG TABLET 1 TAB PO (09:30)
--- NOTE | 2022-06-29 11:40 | PM.DS ---
DS: Admitting Diagnosis Discharge Date June 29, 2022 Admitting Diagnosis Failure to thrive, pneumonia DS: Discharge Diagnosis Discharge Diagnosis (1) Uncontrolled diabetes mellitus: Status: Acute Assessment and Plan: Accu-Cheks are improving in the 155-179 range. Patient was admitted with elevated blood glucose of 303. This is likely secondary to noncompliance. Patient blood glucose will be monitored a.c. and HS. He is on medication will be reinstated. Insulin sliding scale coverage. Monitor the Accu-Chek. (2) Unable to care for self: Code(s): Z78.9 - Other specified health status Status: Acute Assessment and Plan: Due to generalized weakness and deconditioning patient has been unable to care for himself. signal worker helper evaluation for placement issue. Continue PT OT management. (3) Generalized weakness: Code(s): R53.1 - Weakness Status: Acute Assessment and Plan: Likely secondary to deconditioning and his multiple comorbidities. Physical therapy evaluation and management. (4) Congestive heart failure: Code(s): I50.9 - Heart failure, unspecified Status: Acute Assessment and Plan: Currently no evidence of exacerbation. Continue home management. (5) Acute on chronic renal insufficiency: Code(s): N28.9 - Disorder of kidney and ureter, unspecified; N18.9 - Chronic kidney disease, unspecified Status: Acute Assessment and Plan: Mild elevation of creatinine at 2.5. Unknown basal renal function with while fluctuations of creatinine since July 2018. Most recent creatinine was 2.3 on 02/26/2020 2. On yesterday's labs creatinine was 2.6. Monitor intake and output. Avoid nephrotoxic medications. There were no morphologic abnormalities on the renal bladder ultrasound 2020. (6) Community acquired pneumonia: Code(s): J18.9 - Pneumonia, unspecified organism Status: Acute Assessment and Plan: Chest x-ray reveals a minimal airspace opacities of the left mid and lower lung zones, consistent with atelectasis versus pneumonia. Patient was appropriately started on combination of Rocephin and azithromycin. (7) Acute UTI: Code(s): N39.0 - Urinary tract infection, site not specified Status: Acute Assessment and Plan: Urinalysis shows pyuria. The continue ceftriaxone. Blood cultures unrevealing. Urine cultures growing Bita albicans. (8) Chronic wound of extremity: Status: Acute Assessment and Plan: Wound care evaluation management. (9) Fracture of left humerus: Code(s): S42.302A - Unspecified fracture of shaft of humerus, left arm, initial encounter for closed fracture Status: Acute Assessment and Plan: per ortho evaluation, the patient has chronic bilateral humeral nonunion. Patient is uncomfortable. Continue pain management. Referral to shoulder section at [facility]. 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 Plan Patient is a full code. He was admitted inpatient under hospitalist services. DVT prophylaxis is with heparin. DS: Summary Hospital Course Hospital Course: Patient is a 71-year-old male who has significant weakness came with some pneumonia as well. He was started on IV antibiotics and his pneumonia improved. He has not required any oxygen last 48hours. He will be sent home on Omnice[facility] on discharge. PT evaluated the patient recommended placement. Patient is refusing placement in a skilled facility. I have discussed this with him on numerous occasion he is adamantly refusing being placed in a facility. Patient will be discharged home and he u
[2022-06-29 12:09] LABS: Glucose Point of Care 181 mg/dl (65-105)
== END 2022-06-29 14:20 | disposition home or self-care (01) | DRG 637 ==
LOC: ANHED 06-25 00:06 → ANHIMU 06-25 03:06 → ANH2MED 06-29 11:40 → ANHIMU 07-01 11:05
PROVIDERS: Internal Medicine; Admitting Provider Internal Medicine; Emergency Provider Nurse Practitioner Family; PCP Physician Assistant; Visit Provider Chiropractor
DX: E11.65 Type 2 diabetes mellitus with hyperglycemia (principal); J18.9 Pneumonia, unspecified organism; I13.0 Hypertensive heart and chronic kidney disease with heart failure and stage 1 through stage 4 chronic kidney disease, or unspecified chronic kidney disease; N18.4 Chronic kidney disease, stage 4 (severe); S42.301K Unspecified fracture of shaft of humerus, right arm, subsequent encounter for fracture with nonunion; S42.302K Unspecified fracture of shaft of humerus, left arm, subsequent encounter for fracture with nonunion; B37.49 Other urogenital candidiasis; I50.9 Heart failure, unspecified; Z91.199 Patient's noncompliance with other medical treatment and regimen due to unspecified reason; E11.42 Type 2 diabetes mellitus with diabetic polyneuropathy; I25.10 Atherosclerotic heart disease of native coronary artery without angina pectoris; G35 Multiple sclerosis; K21.9 Gastro-esophageal reflux disease without esophagitis; E78.00 Pure hypercholesterolemia, unspecified; Z86.73 Personal history of transient ischemic attack (TIA), and cerebral infarction without residual deficits; Z95.2 Presence of prosthetic heart valve; Z98.42 Cataract extraction status, left eye; Z98.41 Cataract extraction status, right eye; Z95.1 Presence of aortocoronary bypass graft; Z96.1 Presence of intraocular lens; R62.7 Adult failure to thrive; Z68.25 Body mass index [BMI] 25.0-25.9, adult; L89.620 Pressure ulcer of left heel, unstageable; L89.610 Pressure ulcer of right heel, unstageable
CPT/HCPCS: 36415; 71045; 73030; 73502; 80048; 80053; 81001; 82550; 82728; 82948; 83540; 83550; 83605; 83880; 84100; 84484; 85025; 87040; 87086; 87088; 87106; 87636; 93005; 97162; 97165; 99285; A9270; J0456; J0696; J1644; J1815

== ENCOUNTER 2022-12-08 14:18 | Inpatient (IN) | payer OTHER, SELFPAY ==
[2022-12-08] VITALS (12 sets, daily range): BP systolic 92–124; BP diastolic 49–89; PULSE 94–112; RESP 16–29; TEMP 36.3–36.4; O2SAT 93–100; BMI 21.9
--- NOTE | ~2022-12-08 | XR_ITS ---
XR chest PICC line DATE: 12/09/2022 16:29 INDICATION: PICC line placement TECHNIQUE: Portable AP chest on 12/09/2022 at 1623 hours COMPARISON: 06/24/2022 AP chest FINDINGS: Right upper extremity PIC catheter is present, distal tip situated near the superior cavoat rial junction. Status post sternotomy and cardiac valve replacement. Heart size appears within normal range. Is aort ic arch calcification. No pulmonary consolidation or pneumothorax is noted. Prominent old surgical neck fracture deformities of the left and right humerus. Osteopenia. Probable faceted calcified gallstones (cholelithiasis). IMPRESSION: Right upper extremity PIC catheter tip near superior cavoatrial junction Reviewed, dictated and finalized at Location [facility]. Reviewed, dictated and finalized at location [] IMPRESSION: Right upper extremity PIC catheter tip near superior cavoatrial laurence ction
--- NOTE | ~2022-12-08 | XR_ITS ---
EXAMINATION: XR thoracic spine 3V DATE: 12/08/2022 15:33 INDICATION: Ulceration on the back TECHNIQUE: AP, lateral and lateral swimmer's views of the thoracic spine were obtained. COMPARISON: None. FINDINGS: There are bridging osteophytes at multiple levels in the spine, consistent with diffuse idi opathic skeletal hyperostosis (DISH). The vertebral body heights are maintained. There is mild loss o f intervertebral disc space height at multiple levels in the thoracic spine. There is no fracture. Ch anges of cardiac valve replacement are noted. Right upper quadrant calcifications likely reflect chol elithiasis. IMPRESSION: 1. Diffuse idiopathic skeletal hyperostosis (DISH) and mild thoracic spondylosis without acute findin gs. Reviewed, dictated and finalized at location F. IMPRESSION: 1. Diffuse idiopathic skeletal hyperostosis (DISH) and mild thoracic spondylosi s without acute findings.
--- NOTE | ~2022-12-08 | CT_ITS ---
EXAMINATION: CT brain wo con INDICATION: Headache COMPARISON: 01/08/2021 TECHNIQUE: Standard unenhanced head CT. The dose-length product (DLP) was 681.00 mGy-cm. The mA was a djusted according to patient size. Iterative reconstruction technique was employed. FINDINGS: There is no acute intraparenchymal hemorrhage. No evidence of mass lesion. No evidence of a cute infarction. There is moderate periventricular and subcortical hypodensity probably related to sm all vessel ischemic disease. There is moderate prominence of the sulci and ventricles related to cere bral atrophy. Intracranial calcified cerebral atherosclerosis is noted. There are no extra-axial manuel ections. There is no mass effect or midline shift. Changes in the globes are likely from ocular lens surgery. There is mild mucosal thickening of the paranasal sinuses. IMPRESSION: 1. No acute intracranial abnormality. 2. Age related findings. Reviewed, dictated and finalized at location F.
--- NOTE | 2022-12-08 14:19 | ECG_ITS ---
Measurements Intervals [place] Rate: 105 P: TN: 0 QRS: 16 QRSD: 145 T: 159 QT: 396 QTc: 524 Interpretive Statements UNCERTAIN REGULAR RHYTHM LEFT BUNDLE BRANCH BLOCK [120+ ms QRS DURATION, 80+ ms Q/S IN V1/V2, 85+ ms R IN I/aVL/V5/V6] ABNORMAL ECG COMPARED TO ECG 06/24/2022 23:11:29 NO SIGNIFICANT CHANGES Electronically Signed On 12-08-2022 15:08:44 CDT by Davidson Steele M.D.
--- NOTE | 2022-12-08 14:27 | ED.AMS ---
HPI - Altered Mental Status General Chief Complaint: Altered Mental Status Stated Complaint: Altered mental status History of Present Illness HPI narrative: 72-year-old male presented to the emergency department for evaluation after being found on the ground. Patient was at a local long-term and reportedly checked himself out on December 03. Police went to do a well check and found that he was lying on the floor covered in feces. Patient states he does have pain in his legs and his groin. Patient denies any chest pain or shortness of breath. Patient denies any nausea vomiting or diarrhea. Patient does have a history of CHF, acute on chronic renal insufficiency, diabetes Related Data Home Medications Medication Instructions Recorded Confirmed insulin lispro 100 unit/mL 1 sliding scale dose subcut 12/17/21 12/08/22 subcutaneous pen (Humalog KwikPen USEASDIRECTD (U-100) Insulin) atorvastatin 40 mg tablet 40 mg PO DAILY 12/08/22 12/08/22 docusate sodium 100 mg tablet 100 mg PO DAILY 12/08/22 12/08/22 (Stool Softener) duloxetine 60 mg capsule,delayed 60 mg PO DAILY 12/08/22 12/08/22 release finasteride 5 mg tablet 5 mg PO DAILY 12/08/22 12/08/22 Allergies Allergy/AdvReac Type Severity Reaction Status Date / Time No Known Allergies Allergy Verified 06/24/22 19:27 Review of Systems Review of Systems: All systems reviewed & are unremarkable except as noted in HPI and below PMFSH Past Medical History Medical History (Updated 12/08/22 @ 16:25 by Cecilio Olivo MD) Aortic aneurysm CHF (congestive heart failure) Chronic kidney disease, stage IV (severe) With history of temporary dialysis 2018 with left upper extremity AV fistula Closed fracture of both humeri with nonunion both occurred in spring Coronary artery disease CVA (cerebral vascular accident) X2 Diabetes mellitus with hyperglycemia, with long-term current use of insulin Diabetic peripheral neuropathy Dislocation of right shoulder joint Approximately August 2021 GERD (gastroesophageal reflux disease) Hypercholesterolemia Hypertension Left humeral fracture September 2021 (conservative management) Presbycusis of both ears Spina bifida Per patient report Subdural hematoma (01/08/21) Acute versus subacute subdural hematoma right frontal and parietal lobes with acute subarachnoid hemorrhage of left parietal lobe sulcus, acute subdural versus subarachnoid hemorrhage left of the frontal falx Surgical History Surgical History History of aortic valve replacement Bioprosthetic or tissue Hx of CABG (~2006) Three vessel CABG performed in [place] Status post cataract extraction of both eyes with insertion of intraocular lens Status post open reduction with internal fixation of fracture Basal cervical fracture proximal left femur evaluated at [facility] and transferred to [place] Surgically constructed arteriovenous fistula (~2019) Family History Family History Sibling Colon cancer Mother Cancer Social History Social History Social History: He is and lives alone. He does not have any children. He is a lifelong nonsmoker and does not drink alcohol. 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 He has been in the out of nursing homes since October or November of last year. Primary care provider: Keysha Leonard Code status: Full code Surrogate decision maker: None. He reports that he does not trust anyone enough to provide decisions for him if he is unable to. Smoking status: Unknown if ever smoked Second hand tobacco smoke exposure: No Alcohol intake: never Substance use: never Substance use type: does not use Lack of Transportation: YES Lack of Food: Sometimes True Current Housing: I Have Housing Concerned About Future Housing: No Difficulty Paying
[2022-12-08 14:35] LABS: Glucose Point of Care 189 mg/dl (65-105)
[2022-12-08 15:06] LABS: Hematocrit 34.3 % (42.0-52.0); Hemoglobin 10.4 g/dL (14.0-18.0); Mean Corpuscular HGB Conc 30.3 g/dl (32-36); Mean Corpuscular Hemoglobin 30.1 pg (26-34); Mean Corpuscular Volume 99.4 fl (80-100); Mean Platelet Volume 9.2 fl (7.4-10.4); Platelet Count Result 230 k/mm3 (150-375); Red Blood Count 3.45 M/mm3 (4.6-6.20); White Blood Count 22.6 K/mm3 (4.5-10.0)
[2022-12-08 15:15] LABS: Lactic Acid Reflex 1.7 mmol/L (0.7-2.0)
--- NOTE | 2022-12-08 15:16 | PC.NURSE ---
Patient off unit to CT.
[2022-12-08] MEDS: SODIUM CHLORIDE 0.9% IV 1,000 ML 999 ML IV CONT ×2 (15:17→15:43)
[2022-12-08 15:26] LABS: INR 1.2; Prothrombin Time 15.7 Seconds (11.1-14.7)
[2022-12-08 15:27] LABS: Partial Thromboplastin Time 30.8 SECONDS (22.3-36.8)
[2022-12-08 15:35] LABS: Appearance Urine Turbid (Clear); Bacteria Urine None Seen /hpf; Bilirubin Urine Negative (Negative); Blood Urine 2+ (Negative); Color Urine Yellow (Yellow); Glucose Urine UA Trace mg/dL (Negative); Ketones Urine 1+ mg/dL (Negative); Leukocyte Esterase Ur 3+ LEU/UL (Negative); Need Manual Microscopic Reviewed; Nitrate Urine Negative (Negative); Non Pathogenic Casts >20; Protein Urine 2+ mg/dL (Negative); RBC Urine 0-2 /hpf (0-2); Specific Grav Ur 1.017 (1.001-1.035); Squamous Epithelial Cell Urine Moderate /hpf (Few); Urobilinogen Urine 0.2 mg/dL (<2.0); WBC Urine >100 /hpf
[2022-12-08 15:37] LABS: Add Urine Microscopic? YES
[2022-12-08 15:46] LABS: Lymphocytes Absolute Manual 0.45 K/mm3 (1.1-4.5); Monocytes Percent Manual 4 % (3-9); Neutrophils Percent Manual 94 % (46-73); Platelet Estimate Adequate (Adequate); Schistocytes None Seen (NORMAL); Total Cells Counted 100
[2022-12-08 15:58] LABS: Alanine Aminotransferase 18 U/L (6-50); Albumin Level 3.1 g/dL (3.5-5.1); Alkaline Phosphatase 144 U/L (38-126); Anion Gap 15 mmol/L (8-16); Aspartate Amino Transferase 26 U/L (17-59); Bilirubin,Total 0.5 mg/dL (0.2-1.3); Blood Urea Nitrogen 70 mg/dL (9-20); CRP 8.2 mg/dL (<1.0); Carbon Dioxide 19 mmol/L (22-30); Chloride 114 mmol/L (98-107); Creatine Kinase 201 U/L (55-170); Estimated CRCL calculation 21 ml/min; Estimated Glomerular Filt Rate 27; Glucose 204 mg/dL (65-110); Potassium 4.2 mmol/L (3.4-5.0); Sodium 148 mmol/L (137-145)
[2022-12-08 15:59] LABS: Erythrocyte Sedimentation Rate 137 mm/hr (0-20)
[2022-12-08 16:05] LABS: Procalcitonin 0.6 ng/mL
--- NOTE | 2022-12-08 16:17 | ECG_ITS ---
Measurements Intervals [place] Rate: 114 P: TN: 0 QRS: 8 QRSD: 146 T: 176 QT: 368 QTc: 507 Interpretive Statements ATRIAL FIBRILLATION WITH RAPID VENTRICULAR RESPONSE LEFT BUNDLE BRANCH BLOCK [120+ ms QRS DURATION, 80+ ms Q/S IN V1/V2, 85+ ms R IN I/aVL/V5/V6] ABNORMAL ECG COMPARED TO ECG 12/08/2022 14:21:07 ATRIAL FIBRILLATION NOW PRESENT Electronically Signed On 12-09-2022 9:34:28 CDT by Davidson Steele M.D.
[2022-12-08 17:27] LABS: Magnesium 2.4 mg/dL (1.6-2.3)
[2022-12-08] MEDS: METOPROLOL SUCCINATE EXT REL 25 MG TABCR PO (17:28)
--- NOTE | 2022-12-08 17:42 | ADMGEN ---
This patient, Chris Pavon, was admitted to IMU Room 207-01. Patient/family oriented to hospital policies and general routines including ID bracelet, bed and alarms, visiting hours, pain management, procedures, bathroom and other care routines, personal items, smoking policy, room service/diet, and visiting hours. Information on how to activate the Rapid Response Team has been discussed. Patient/Family are encouraged to report perceived risks to care and to ask questions if they do not understand what they are told or what they should do.
--- NOTE | 2022-12-08 19:14 | PC.NURSE ---
Unable to obtain home medications. The pharmacy patient has informed us he uses ([email or web address]) stated that we haven't filled medications in over one year for this patient. Pt doesn't know which medications he takes. External medication list shows that medications haven't been filled in over 6 months. Pt has been in and out of nursing homes since October 2021. Pt states that I was at [facility] recently. I left the other day. This information was passed along in shift report. Night RN to try and obtain medication list
--- NOTE | 2022-12-08 20:17 | PM.IMHP ---
H&P: HPI History of Present Illness Date/Time: 12/08/22 20:17 Chief Complaint: Altered mental status Narrative: this is a 72-year-old male patient who came to the emergency room after being found on the ground. The patient has been in and out of several local nursing homes any a checked himself out on December 03. The please went to do a well check on the patient found him lying on the floor covered in feces. The patient was complaining of pain in his legs and growing. The patient denied any chest pain. He denies any nausea vomiting or diarrhea. The patient appears frail. The patient has a large eschar tissue proximally 10 x 10 on the upper thoracic spine. He also has ulcerated areas to both of his heels. He has a history of congestive heart failure diabetes and chronic renal insufficiency. His white count is 22.6. H&H is 10.4 and 34.3. His ESR is 137. Sodium is slightly high at 148. His BUN is 70 creatinine is 2.4. According to his previous lab values the patient is somewhere between 2.3 And 2.7. his OneTouch was 189. Magnesium was high at 2.4. Total creatinine kinase 201. CRP is 8.2. Urine was turbid 1+ ketones 2+ blood. Greater than 100 wbc's. The patient was given IV fluids, normal saline, Rocephin and metoprolol. A Yen catheter was placed in the emergency room. Thoracic spine. Diffuse idiopathic skeletal hyperostosis (DISH) and mild thoracic spondylosis without acute findings. head CT was read as the following. No acute intracranial abnormality. 2. Age related findings. the patient is being admitted to observation on 12/08/2022. Review of Systems Review of Systems: All systems reviewed & are unremarkable except as noted in HPI and below Constitutional: Constitutional: Reports as per HPI and Reports no additional constitutional complaints Eyes: Eyes: Reports as per HPI and Reports no additional eye complaints ENT: Reports system reviewed and no additional complaints, except as documented and Reports Normal hearing present Cardiovascular: Cardiovascular: Reports no additional cardiovascular complaints Respiratory: Respiratory: Reports no additional respiratory complaints and Reports no additional respiratory complaints Gastrointestinal: Gastrointestinal: Reports as per HPI and Reports no additional gastrointestinal complaints Musculoskeletal: Musculoskeletal: Reports no additional musculoskeletal complaints Integumentary/Breasts: Skin/Breast: Reports system reviewed and no additional complaints, except as docu and Reports as per HPI Neurologic: Reports system reviewed and no additional complaints, except as documented, Reports as per HPI and Reports Normal hearing present Psychiatric: Psychiatric: Reports no additional psychiatric complaints and Reports as per HPI Endocrine: Endocrine: Reports no additional endocrine complaints Hematologic/Lymphatic: Hematologic/Lymphatic: Reports no additional hematologic/lymphatic complaints Allergic/Immunologic: Allergic/Immunologic: Reports no additional allergic/immunologic complaints [facility] Past Medical History Medical History Aortic aneurysm CHF (congestive heart failure) Chronic kidney disease, stage IV (severe) With history of temporary dialysis 2018 with left upper extremity AV fistula Closed fracture of both humeri with nonunion both occurred in spring Coronary artery disease CVA (cerebral vascular accident) X2 Diabetes mellitus with hyperglycemia, with long-term current use of insulin Diabetic peripheral neuropathy Dislocation of right shoulder joint Approximately August 2021 GERD (gastroesophageal reflux disease) Hypercholesterolemia Hypertension Left humeral fracture September 2021 (conservative management) Presbycusis of both ears Spina bifida Per patient report Subdural hematoma (01/08/21) Acute versus subacute subdural hematoma right frontal and parietal lobes with acute subarachno
[2022-12-09] VITALS (12 sets, daily range): BP systolic 85–110; BP diastolic 36–78; PULSE 77–97; RESP 18–24; TEMP 36–36.9; O2SAT 96–99; BMI 21.9
--- NOTE | 2022-12-09 | ECHOL_ITS ---
Patient Info Name: Chris Pavon Age: 72 years : 1950 Gender: Male Ht: 68 in Wt: 143 lbs BSA: 1.76 m2 HR: 79 bpm BP: 85 / 51 mmHg Heart Rhythm: Sinus Rhythm Technical Quality: Fair Exam Date: 12/09/2022 9:10 AM Exam Location: [facility] Pulmonary Patient Status: Inpatient Admit Date: 12/08/2022 Staff Ordering Physician: Wesley Guan MD Stone Dresser: Leland Smith RDCS Attending Provider: Brayan Moran MD Exam Type: CA echo limited Study Info Indications - Chf Complete two-dimensional, color flow and Doppler transthoracic echocardiogram is performed. Summary 1. Complete two-dimensional, color flow and Doppler transthoracic echocardiogram is performed. 2. Left ventricular chamber dimension is mildly enlarged. 3. Left ventricular systolic function is mildly reduced, estimated at 45-50%. 4. There is mildly increased left ventricular wall thickness. 5. The left ventricular diastolic function is grade I diastolic dysfunction. 6. The inferior wall, and basal inferoseptal are akinetic. 7. The mid inferoseptal, basal anteroseptal, and basal inferolateral wall are hypokinetic. 8. Left atrial chamber dimension is moderately enlarged. 9. There is mild aortic valve stenosis with a peak velocity of 211 cm/s, mean gradient of 10 mmHg, and aortic valve area of 2.0 cm2. 10. There is mild aortic valve regurgitation. 11. There is mild aortic valve calcification. 12. The mitral valve has thickened leaflets and calcified annulus. 13. There is mild mitral valve regurgitation. 14. There is mild tricuspid valve regurgitation. Left Ventricle Left ventricular chamber dimension is mildly enlarged. Left ventricular systolic function is mildly reduced, estimated at 45-50%. There is mildly increased left ventricular wall thickness. The left ventricular diastolic function is grade I diastolic dysfunction. The inferior wall, and basal inferoseptal are akinetic. The mid inferoseptal, basal anteroseptal, and basal inferolateral wall are hypokinetic. All other mack appear normal. Right Ventricle Right ventricular chamber dimension is normal. Right ventricular systolic function is normal. Left Atria Left atrial chamber dimension is moderately enlarged. Right Atria Right atrial chamber dimension is normal. Atrial Septum Intact interatrial septum visualized by color flow imaging. Aortic Valve The aortic valve is trileaflet. There is mild aortic valve stenosis with a peak velocity of 211 cm/s, mean gradient of 10 mmHg, and aortic valve area of 2.0 cm2. There is mild aortic valve regurgitation. There is mild aortic valve calcification. Pulmonic Valve The pulmonic valve is normal. There is no pulmonic valve stenosis. There is trace pulmonic regurgitation. Mitral Valve The mitral valve has thickened leaflets and calcified annulus. There is no mitral valve stenosis. There is mild mitral valve regurgitation. Tricuspid Valve The tricuspid valve leaflets are normal. There is no significant tricuspid valve stenosis. There is mild tricuspid valve regurgitation. No pulmonary hypertension, estimated pulmonary arterial systolic pressure is 20 mmHg. Aorta The aortic root size at the sinus of Valsalva is normal. Left Ventricular Outflow Tract Name Value Normal LVOT 2D LVOT Diameter 2.0 cm
[2022-12-09] MEDS: CEFEPIME 1 GM/NS 50 ML 1 GM/50 ML BAG IVPB ×2 (00:08→23:16)
[2022-12-09] MEDS: SODIUM CHLORIDE 0.9% IV 1,000 ML 100 ML IV CONT ×2 (00:14→10:46)
[2022-12-09] MEDS: VANCOMYCIN 1,250 MG/NS 250 ML 1,250 MG/250 ML BAG 166.67 MG IVPB (01:06)
[2022-12-09] MEDS: metroNIDAZOLE 500 MG/ISO 100ML 500 MG/100 ML BAG 100 MG IVPB ×3 (02:10→17:05)
[2022-12-09 04:48] LABS: Lactic Acid Reflex 1.1 mmol/L (0.7-2.0)
[2022-12-09 04:53] LABS: Alanine Aminotransferase 14 U/L (6-50); Albumin Level 2.5 g/dL (3.5-5.1); Alkaline Phosphatase 106 U/L (38-126); Anion Gap 9 mmol/L (8-16); Aspartate Amino Transferase 20 U/L (17-59); Bilirubin,Total 0.4 mg/dL (0.2-1.3); Blood Urea Nitrogen 66 mg/dL (9-20); Calcium 7.4 mg/dL (8.4-10.2); Carbon Dioxide 19 mmol/L (22-30); Chloride 112 mmol/L (98-107); Creatine Kinase 81 U/L (55-170); Estimated CRCL calculation 27 ml/min; Estimated Glomerular Filt Rate 31; Glucose 198 mg/dL (65-110); Magnesium 1.9 mg/dL (1.6-2.3); Potassium 3.6 mmol/L (3.4-5.0); Sodium 140 mmol/L (137-145)
[2022-12-09 04:57] LABS: Hemoglobin A1C 7.4 % (<5.7)
[2022-12-09 08:09] LABS: Hematocrit 30.1 % (42.0-52.0); Hemoglobin 9.5 g/dL (14.0-18.0); Mean Corpuscular HGB Conc 31.6 g/dl (32-36); Mean Corpuscular Hemoglobin 30.9 pg (26-34); Mean Platelet Volume 9.5 fl (7.4-10.4); Platelet Count Result 173 k/mm3 (150-375); Red Blood Count 3.07 M/mm3 (4.6-6.20); White Blood Count 18.9 K/mm3 (4.5-10.0)
--- NOTE | 2022-12-09 08:18 | PC.NURSE ---
Pt BP this am 85/51 and HR 80 NSR at this time this nurse rechecked BP was 80/[address] Guan aware and he placed lab orders for lactic and CBC his lactic was 1.1, WBC 18.9 was 22.6 he gave verbal order for echo as well and to monitor at this time
[2022-12-09 08:29] LABS: Glucose Point of Care 218 mg/dl (65-105)
[2022-12-09] MEDS: INSULIN ASPART (*BKC) 100 UNITS/ML SUB-Q ×4 (10:11→20:12)
[2022-12-09] MEDS: FINASTERIDE 5 MG TABLET PO (10:12)
[2022-12-09] MEDS: DOCUSATE SODIUM 100 MG CAPSULE PO (10:12)
[2022-12-09] MEDS: ATORVASTATIN 40 MG TABLET PO (10:12)
[2022-12-09] MEDS: DULoxetine HCL 60 MG CAPSULE.DR PO (10:12)
[2022-12-09 11:35] LABS: Glucose Point of Care 232 mg/dl (65-105)
--- NOTE | 2022-12-09 12:18 | PC.NURSE ---
IV attempted 2 times with ultrasound guidance. Unable to obtain IV. Patient's veins appear very small, calcified, and multiple valves on the ultrasound. Charge nurse and bedside nurse notified.
--- NOTE | 2022-12-09 14:12 | WPDPN ---
Progress Note: A&P Assessment and Plan (1) Urinary tract infection: Code(s): N39.0 - Urinary tract infection, site not specified Status: Acute Assessment and Plan: patient was given a dose of Rocephin and I would change his antibiotics for the skin infection which includes cefepime Flagyl and vancomycin. Urine and blood cultures are pending 12/09/2022 interval history: 72 year old male was found by police department on safety change of his home, unfortunate patient is not able to provide any history or review of symptom patient was and poor hygiene and is concerning bacteremia possible source wounds, and UTI, with elevated white count, patient has several wound on his back will consult surgery service further recommendation, patient is being treated with Cefepime, Flagyl and vancomycin, suspected patient will need IV antibiotics for long-term and unable to provide consent and there is no one to contact and his family or POA, patient in emergency to insert PICC line to continue IV antibiotic,, patient with history of CHF patient is being diuresed, history of diabetes his HA1c is 7.4, will continue home regimen and monitor. (2) Skin infection: Code(s): L08.9 - Local infection of the skin and subcutaneous tissue, unspecified Status: Acute Assessment and Plan: the patient has ulcerated heels and a large eschar tissue to his back. Surgery has been consulted. The patient is also diabetic. Patient was started on antibiotics of cefepime, Flagyl and vancomycin pain . Blood and urine cultures are pending. His white count is 22.6 (3) Acute hypernatremia: Code(s): E87.0 - Hyperosmolality and hypernatremia Status: Acute Assessment and Plan: sodium 148. Most likely the patient is dehydrated because he laid on the floor. recheck Electrolytes l now and continue with IV fluids. (4) Adult failure to thrive: Code(s): R62.7 - Adult failure to thrive Status: Acute Assessment and Plan: The patient is frail. He has been in and out of the group home. fruit coordinator consult was greatly be appreciated. (5) Uncontrolled diabetes mellitus: Status: Acute Assessment and Plan: Accu-Cheks AC and HS with sliding scale insulin check A1c. (6) Chronic kidney disease, stage IV (severe): Code(s): N18.4 - Chronic kidney disease, stage 4 (severe) Status: Acute Assessment and Plan: The patient is at his baseline. The patient has an elevated CK due to his fall and lying on the floor. Check daily CK. Continue with IV fluids. Subjective Date/time seen: 12/09/22 14:12 Interval history: ? Altered mental status HPI- Narrative: ?this is a 72-year-old male patient who came to the emergency room after being found on the ground.? The patient has been in and out of several local nursing homes any a checked himself out on December 03.? The please went to do a well check on the patient found him lying on the floor covered in feces.? The patient was complaining of pain in his legs and growing.? The patient denied any chest pain.? He denies any? nausea vomiting or diarrhea.? The patient appears frail.? The patient has a large eschar tissue proximally 10 x 10 on the upper thoracic spine.? He also has ulcerated areas to both of his heels.? He has a history of congestive heart failure diabetes and chronic renal insufficiency.? His white count is 22.6.? H&H is 10.4 and 34.3.? His ESR is 137.? Sodium is slightly high at 148.? His BUN is 70 creatinine is 2.4.? According to his previous lab values the patient is somewhere between 2.3? And 2.7. his OneTouch was 189.? Magnesium was high at 2.4.? Total creatinine kinase 201.? CRP is 8.2.? Urine was turbid 1+ ketones 2+ blood.? Greater than 100 wbc's.? The patient was given IV fluids, normal saline, Rocephin and metoprolol.? A? Yen catheter was placed in the emergency room.? Thoracic spine. Diffuse idiopathic skeletal hyperostosi
--- NOTE | 2022-12-09 15:27 | PCCCNOTE ---
On 12/09/22, the student, Cori Baird, provided care and completed [facility] documentation on this patient. I have reviewed the student's documentation and agree with the findings.
[2022-12-09 16:51] LABS: Glucose Point of Care 286 mg/dl (65-105)
[2022-12-09 20:07] LABS: Glucose Point of Care 249 mg/dl (65-105)
[2022-12-09] MEDS: CENTRAL LINE FLUSH 10 ML IV PUSH (20:12)
[2022-12-10] VITALS (15 sets, daily range): BP systolic 91–117; BP diastolic 42–69; PULSE 80–102; RESP 16–116; TEMP 35.8–36.6; O2SAT 93–98
[2022-12-10] MEDS: metroNIDAZOLE 500 MG/ISO 100ML 500 MG/100 ML BAG 100 MG IVPB ×3 (01:09→17:23)
[2022-12-10] MEDS: SODIUM CHLORIDE 0.9% IV 1,000 ML 100 ML IV CONT ×2 (04:42→17:23)
[2022-12-10] MEDS: CENTRAL LINE FLUSH 10 ML IV PUSH ×3 (04:56→19:52)
[2022-12-10 05:05] LABS: Hematocrit 26.7 % (42.0-52.0); Hemoglobin 8.5 g/dL (14.0-18.0); Mean Corpuscular HGB Conc 31.8 g/dl (32-36); Mean Corpuscular Hemoglobin 31.4 pg (26-34); Mean Corpuscular Volume 98.5 fl (80-100); Mean Platelet Volume 9.3 fl (7.4-10.4); Platelet Count Result 105 k/mm3 (150-375); Red Blood Count 2.71 M/mm3 (4.6-6.20); Red Cell Distribution Width 13.8 % (11.5-14.5); White Blood Count 14.9 K/mm3 (4.5-10.0)
[2022-12-10 05:20] LABS: Anion Gap 6 mmol/L (8-16); Blood Urea Nitrogen 50 mg/dL (9-20); Calcium 7.3 mg/dL (8.4-10.2); Carbon Dioxide 19 mmol/L (22-30); Chloride 111 mmol/L (98-107); Estimated CRCL calculation 28 ml/min; Estimated Glomerular Filt Rate 33; Glucose 203 mg/dL (65-110); Magnesium 1.7 mg/dL (1.6-2.3); Potassium 3.3 mmol/L (3.4-5.0); Sodium 136 mmol/L (137-145)
[2022-12-10 07:32] LABS: Glucose Point of Care 182 mg/dl (65-105)
[2022-12-10] MEDS: DULoxetine HCL 60 MG CAPSULE.DR PO (08:58)
[2022-12-10] MEDS: DOCUSATE SODIUM 100 MG CAPSULE PO (08:58)
[2022-12-10] MEDS: ATORVASTATIN 40 MG TABLET PO (08:58)
[2022-12-10] MEDS: FINASTERIDE 5 MG TABLET PO (08:58)
--- NOTE | 2022-12-10 09:08 | WPDCN ---
Assessment and Plan Assessment and plan (1) Chronic wound of extremity: Status: Acute Assessment and Plan: The patient has bilateral heel pressure ulcers. There is some dry eschar noted and some extension of the wound all the way down to the calcaneus bone. There is no evidence of wet gangrene at this time and no cellulitis. Agree with wound care nurse assessment to just have local wound care and offload pressure off of the heels. Getting these wounds to heal would be very difficult and he is at risk of needing a bilateral below-knee amputations. (2) Bedsores: Code(s): L89.90 - Pressure ulcer of unspecified site, unspecified stage Status: Acute Assessment and Plan: Patient has a very large dry eschar for a pressure ulcer over the midthoracic spine. Debriding this area will likely expose the paraspinous muscles and increased risk of infection of the thoracic spine. There is no fluctuance under the eschar right now with no spreading erythema around it. I would favor leaving -are in place and having local wound care as suggested by the wound care nurses. I do not believe this is source of sepsis. Continue antibiotics as per hospitalist management. Will follow peripherally. HPI Data of Consult Date/Time: 12/10/22 09:08 Requesting Physician: Brayan Moran MD Primary Care Provider: Keysha Leonard, PA-C Consult Narrative Reason for consult: Ulcers bilateral heels and back Narrative: Chris Pavon is a 72 year old male who apparently was at [facility] but then signed himself out went home. He was later found down at home after an unspecified period of time. He was admitted to the hospital with signs of sepsis on evaluation he has bilateral heel ulcers as well as an ulcer in the midportion of his back in the midline with a doc as sharp and some drainage. CT scan the head showed no acute findings. He had elevated white blood count 50245 on admission. Patient is responsive but he is only alert orient x1. He has been seen by the wound care nurses and their assessment is that both the heel ulcers and mid back ulcer on are unstageable pressure ulcers. They recommended local wound care for right now. Review of Systems Review of Systems: The remainder of the review of systems to include constitutional, HEENT, cardiovascular, respiratory, GI, , integumentary, musculoskeletal, endocrine, immunologic, hematologic, psychiatric, and neurologic are all negative except for which is mentioned above in the HPI. 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 Coronary artery disease CVA (cerebral vascular accident) X2 Diabetes mellitus with hyperglycemia, with long-term current use of insulin Diabetic peripheral neuropathy Dislocation of right shoulder joint Approximately August 2021 GERD (gastroesophageal reflux disease) Hypercholesterolemia Hypertension Left humeral fracture September 2021 (conservative management) Presbycusis of both ears Spina bifida Per patient report Subdural hematoma (01/08/21) Acute versus subacute subdural hematoma right frontal and parietal lobes with acute subarachnoid hemorrhage of left parietal lobe sulcus, acute subdural versus subarachnoid hemorrhage left of the frontal falx Surgical History Surgical History History of aortic valve replacement Bioprosthetic or tissue Hx of CABG (~2006) Three vessel CABG performed in [place] Status post cataract extraction of both eyes with insertion of intraocular lens Status post open reduction with internal fixation of fracture Basal cervical fracture proximal
[2022-12-10 11:15] LABS: Glucose Point of Care 283 mg/dl (65-105)
[2022-12-10] MEDS: INSULIN ASPART (*BKC) 100 UNITS/ML SUB-Q ×3 (12:01→22:15)
[2022-12-10] MEDS: POTASSIUM CHLORIDE 20 MEQ TABLET 40 MEQ PO (12:06)
[2022-12-10] MEDS: VANCOMYCIN 1,250 MG/NS 250 ML 1,250 MG/250 ML BAG 166.67 MG IVPB (12:10)
--- NOTE | 2022-12-10 16:06 | PCPTNOTE ---
On 12/10/22, the student, [Elaine Gordillo], provided care and completed [facility] documentation on this patient. I have reviewed the student's documentation and agree with the findings.
[2022-12-10 16:20] LABS: Glucose Point of Care 270 mg/dl (65-105)
--- NOTE | 2022-12-10 18:16 | WPDPN ---
Progress Note: A&P Assessment and Plan (1) Urinary tract infection: Code(s): N39.0 - Urinary tract infection, site not specified Status: Acute Assessment and Plan: patient was given a dose of Rocephin and I would change his antibiotics for the skin infection which includes cefepime Flagyl and vancomycin. Urine and blood cultures are pending 12/10/2022 interval history: 72 year old male was found by police department on safety change of his home, unfortunate patient is not able to provide any history or review of symptom patient was and poor hygiene and is concerning bacteremia possible source wounds, and UTI, which is growing Bita albicans, with elevated white count, patient has several wound on his back, patient was seen by surgery service and evaluated the patient patient wounds are along the lumbar spine and high risk of infection to the spine with debridement, patient is being treated with Cefepime, Flagyl and vancomycin, blood culture no growth so far, suspected patient will need IV antibiotics for long-term and unable to provide consent and there is no one to contact and his family or POA, patient in emergency to insert PICC line to continue IV antibiotic,, patient with history of CHF cardiac echo showed mildly reduced ejection fraction 45 % and grade 1 diastolic dysfunction most likely patient has combined 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 (2) Skin infection: Code(s): L08.9 - Local infection of the skin and subcutaneous tissue, unspecified Status: Acute Assessment and Plan: the patient has ulcerated heels and a large eschar tissue to his back. Surgery has been consulted. The patient is also diabetic. Patient was started on antibiotics of cefepime, Flagyl and vancomycin pain . Blood and urine cultures are pending. His white count is 22.6 (3) Acute hypernatremia: Code(s): E87.0 - Hyperosmolality and hypernatremia Status: Acute Assessment and Plan: sodium 148. Most likely the patient is dehydrated because he laid on the floor. recheck Electrolytes l now and continue with IV fluids. (4) Adult failure to thrive: Code(s): R62.7 - Adult failure to thrive Status: Acute Assessment and Plan: The patient is frail. He has been in and out of the detention. regional coordinator consult was greatly be appreciated. (5) Uncontrolled diabetes mellitus: Status: Acute Assessment and Plan: Accu-Cheks AC and HS with sliding scale insulin check A1c. (6) Chronic kidney disease, stage IV (severe): Code(s): N18.4 - Chronic kidney disease, stage 4 (severe) Status: Acute Assessment and Plan: The patient is at his baseline. The patient has an elevated CK due to his fall and lying on the floor. Check daily CK. Continue with IV fluids. Subjective Date/time seen: 12/10/22 18:16 Interval history: 12/10/2022 interval history: 72 year old male was found by police department on safety change of his home, unfortunate patient is not able to provide any history or review of symptom patient was and poor hygiene and is concerning bacteremia possible source wounds, and UTI, which is growing Bita albicans, with elevated white count, patient has several wound on his back, patient was seen by surgery service and evaluated the patient patient wounds are along the lumbar spine and high risk of infection to the spine with debridement, patient is being treated with Cefepime, Flagyl and vancomycin, blood culture no growth so far, suspected patient will need IV antibiotics for long-term and unable to provide consent and there is no one to contact and his family or POA, patient in emergency to insert PICC line to continue IV antibiotic,, patient with history of CHF cardiac echo showed mildly reduced ejection fraction 45 % an
--- NOTE | 2022-12-10 18:34 | PC.NURSE ---
Patient pleasant to staff today. Up to chair with therapy. Unable to tolerate sitting in chair. C/O pain on his sacral area. Padding placed under patient, patient continues to c/o pain. Patient returned to bed without issue. No further c/o pain. Wound dressing changed without issue. Updated friend Abdullahi about patient condition.
[2022-12-10 20:51] LABS: Glucose Point of Care 271 mg/dl (65-105)
[2022-12-10] MEDS: CEFEPIME 1 GM/NS 50 ML 1 GM/50 ML BAG IVPB (23:45)
[2022-12-11] VITALS (11 sets, daily range): BP systolic 96–130; BP diastolic 48–63; PULSE 81–101; RESP 18–24; TEMP 35.8–36.6; O2SAT 97–99
[2022-12-11] MEDS: metroNIDAZOLE 500 MG/ISO 100ML 500 MG/100 ML BAG 100 MG IVPB ×3 (02:26→17:27)
[2022-12-11 06:22] LABS: Hematocrit 27.6 % (42.0-52.0); Hemoglobin 8.4 g/dL (14.0-18.0); Immature Platelet Fraction Pct 2.8 % (0.9-11.2); Mean Corpuscular HGB Conc 30.4 g/dl (32-36); Mean Corpuscular Volume 98.6 fl (80-100); Mean Platelet Volume 9.7 fl (7.4-10.4); Platelet Count Result 109 k/mm3 (150-375); Red Cell Distribution Width 13.8 % (11.5-14.5); White Blood Count 15.3 K/mm3 (4.5-10.0)
[2022-12-11] MEDS: SODIUM CHLORIDE 0.9% IV 1,000 ML 100 ML IV CONT ×2 (06:33→17:27)
[2022-12-11] MEDS: CENTRAL LINE FLUSH 10 ML IV PUSH ×3 (06:33→20:49)
[2022-12-11 06:43] LABS: Anion Gap 5 mmol/L (8-16); Blood Urea Nitrogen 44 mg/dL (9-20); Calcium 7.3 mg/dL (8.4-10.2); Carbon Dioxide 18 mmol/L (22-30); Chloride 111 mmol/L (98-107); Estimated CRCL calculation 35 ml/min; Estimated Glomerular Filt Rate 43; Glucose 236 mg/dL (65-110); Magnesium 1.6 mg/dL (1.6-2.3); Potassium 3.9 mmol/L (3.4-5.0); Sodium 134 mmol/L (137-145)
[2022-12-11 08:18] LABS: Glucose Point of Care 197 mg/dl (65-105)
[2022-12-11] MEDS: FINASTERIDE 5 MG TABLET PO (09:04)
[2022-12-11] MEDS: DULoxetine HCL 60 MG CAPSULE.DR PO (09:04)
[2022-12-11] MEDS: DOCUSATE SODIUM 100 MG CAPSULE PO (09:04)
[2022-12-11] MEDS: ATORVASTATIN 40 MG TABLET PO (09:04)
--- NOTE | 2022-12-11 09:08 | ECG_ITS ---
Measurements Intervals [place] Rate: 93 P: MT: 0 QRS: 6 QRSD: 142 T: 171 QT: 391 QTc: 487 Interpretive Statements ATRIAL FIBRILLATION LEFT BUNDLE BRANCH BLOCK [120+ ms QRS DURATION, 80+ ms Q/S IN V1/V2, 85+ ms R IN I/aVL/V5/V6] COMPARED TO ECG 12/08/2022 16:37:46 NO SIGNIFICANT CHANGES Electronically Signed On 12-11-2022 12:54:08 CDT by Shaw Holland M.D.
[2022-12-11 11:40] LABS: Glucose Point of Care 322 mg/dl (65-105)
[2022-12-11] MEDS: INSULIN ASPART (*BKC) 100 UNITS/ML SUB-Q ×3 (12:59→20:47)
[2022-12-11] MEDS: FLUCONAZOLE 100 MG/NACL 50 ML 100 MG/50 ML BTL 50 MG IVPB (12:59)
--- NOTE | 2022-12-11 16:03 | WPDPN ---
Progress Note: A&P Assessment and Plan (1) Urinary tract infection: Code(s): N39.0 - Urinary tract infection, site not specified Status: Acute Assessment and Plan: patient was given a dose of Rocephin and I would change his antibiotics for the skin infection which includes cefepime Flagyl and vancomycin. Urine and blood cultures are pending 12/11/2022 interval history: 72 year old male was found by police department on safety change of his home, unfortunate patient is not able to provide any history or review of symptom patient was and poor hygiene and is concerning bacteremia possible source wounds, and UTI, which is growing Bita albicans, with elevated white count, patient has several wound on his back, patient was seen by surgery service and evaluated the patient patient wounds are along the lumbar spine and high risk of infection to the spine with debridement, patient is being treated with Cefepime, Flagyl and vancomycin, blood culture no growth so far, suspected patient will need IV antibiotics for long-term and unable to provide consent and there is no one to contact and his family or POA, patient in emergency to insert PICC line to continue IV antibiotic, patient clinical symptoms are improved is unable to provide detailed review of symptom however he does try to communicate, also patient white counts are trending down, patient urine culture is growing Bita albicans discussed with ID pharmacist will start fluconazole IV, the patient on will continue to monitor, have PT OT evaluate the patient, patient with history of CHF cardiac echo showed mildly reduced ejection fraction 45 % and grade 1 diastolic dysfunction most likely patient has combined 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 (2) Skin infection: Code(s): L08.9 - Local infection of the skin and subcutaneous tissue, unspecified Status: Acute Assessment and Plan: the patient has ulcerated heels and a large eschar tissue to his back. Surgery has been consulted. The patient is also diabetic. Patient was started on antibiotics of cefepime, Flagyl and vancomycin pain . Blood and urine cultures are pending. His white count is 22.6 (3) Acute hypernatremia: Code(s): E87.0 - Hyperosmolality and hypernatremia Status: Acute Assessment and Plan: sodium 148. Most likely the patient is dehydrated because he laid on the floor. recheck Electrolytes l now and continue with IV fluids. (4) Adult failure to thrive: Code(s): R62.7 - Adult failure to thrive Status: Acute Assessment and Plan: The patient is frail. He has been in and out of the [facility]. change coordinator consult was greatly be appreciated. (5) Uncontrolled diabetes mellitus: Status: Acute Assessment and Plan: Accu-Cheks AC and HS with sliding scale insulin check A1c. (6) Chronic kidney disease, stage IV (severe): Code(s): N18.4 - Chronic kidney disease, stage 4 (severe) Status: Acute Assessment and Plan: The patient is at his baseline. The patient has an elevated CK due to his fall and lying on the floor. Check daily CK. Continue with IV fluids. Subjective Date/time seen: 12/11/22 16:03 Interval history: 12/11/2022 interval history: 72 year old male was found by police department on safety change of his home, unfortunate patient is not able to provide any history or review of symptom patient was and poor hygiene and is concerning bacteremia possible source wounds, and UTI, which is growing Bita albicans, with elevated white count, patient has several wound on his back, patient was seen by surgery service and evaluated the patient patient wounds are along the lumbar spine and high risk of infection to the spine with debridement, patient is being treated with Cefepime, [place]
[2022-12-11 16:10] LABS: Glucose Point of Care 266 mg/dl (65-105)
[2022-12-11 21:18] LABS: Glucose Point of Care 269 mg/dl (65-105)
[2022-12-11] MEDS: CEFEPIME 1 GM/NS 50 ML 1 GM/50 ML BAG IVPB (23:33)
[2022-12-12] VITALS (10 sets, daily range): BP systolic 102–126; BP diastolic 46–61; PULSE 79–88; RESP 16–20; TEMP 36.2–37; O2SAT 97–100
[2022-12-12] MEDS: metroNIDAZOLE 500 MG/ISO 100ML 500 MG/100 ML BAG 100 MG IVPB ×3 (01:42→17:39)
[2022-12-12 02:32] LABS: Vancomycin Trough 13.1 ug/mL (10.0-20.0)
[2022-12-12] MEDS: VANCOMYCIN 1,000 MG/NS 250 ML 1,000 MG/250 ML BAG 250 MG IVPB (03:11)
[2022-12-12] MEDS: SODIUM CHLORIDE 0.9% IV 1,000 ML 100 ML IV CONT ×2 (05:01→10:11)
[2022-12-12] MEDS: CENTRAL LINE FLUSH 10 ML IV PUSH ×3 (05:02→21:51)
[2022-12-12 05:59] LABS: Hematocrit 27.4 % (42.0-52.0); Hemoglobin 8.5 g/dL (14.0-18.0); Immature Platelet Fraction Pct 3.1 % (0.9-11.2); Mean Corpuscular Hemoglobin 30.1 pg (26-34); Mean Corpuscular Volume 97.2 fl (80-100); Mean Platelet Volume 10.1 fl (7.4-10.4); Platelet Count Result 115 k/mm3 (150-375); Red Blood Count 2.82 M/mm3 (4.6-6.20); White Blood Count 14.2 K/mm3 (4.5-10.0)
[2022-12-12 06:09] LABS: Anion Gap 2 mmol/L (8-16); Blood Urea Nitrogen 36 mg/dL (9-20); Carbon Dioxide 21 mmol/L (22-30); Chloride 112 mmol/L (98-107); Estimated CRCL calculation 36 ml/min; Estimated Glomerular Filt Rate 43; Glucose 120 mg/dL (65-110); Magnesium 1.5 mg/dL (1.6-2.3); Potassium 3.7 mmol/L (3.4-5.0); Sodium 135 mmol/L (137-145)
[2022-12-12] MEDS: MAGNESIUM SULF 2 GM/WATER 50ML 2 GM/50 ML BAG IVPB (08:12)
[2022-12-12] MEDS: DULoxetine HCL 60 MG CAPSULE.DR PO (08:14)
[2022-12-12] MEDS: FINASTERIDE 5 MG TABLET PO (08:14)
[2022-12-12] MEDS: ATORVASTATIN 40 MG TABLET PO (08:14)
[2022-12-12] MEDS: DOCUSATE SODIUM 100 MG CAPSULE PO (08:14)
[2022-12-12 08:19] LABS: Glucose Point of Care 135 mg/dl (65-105)
--- NOTE | 2022-12-12 10:55 | WPDPN ---
Progress Note: A&P Assessment and Plan (1) Urinary tract infection: Code(s): N39.0 - Urinary tract infection, site not specified Status: Acute Assessment and Plan: patient was given a dose of Rocephin and I would change his antibiotics for the skin infection which includes cefepime Flagyl and vancomycin. Urine and blood cultures are pending 12/12/2022 interval history: 72 year old male was found by police department on safety change of his home, unfortunate patient is not able to provide any history or review of symptom patient was and poor hygiene and is concerning bacteremia possible source wounds, and UTI, which is growing Bita albicans, with elevated white count, patient has several wound on his back, patient was seen by surgery service and evaluated the patient patient wounds are along the lumbar spine and high risk of infection to the spine with debridement, patient is being treated with Cefepime, Flagyl and vancomycin, blood culture no growth so far, suspected patient will need IV antibiotics for long-term and unable to provide consent and there is no one to contact and his family or POA, patient in emergency to insert PICC line to continue IV antibiotic, patient clinical symptoms are improved is unable to provide detailed review of symptom however he does try to communicate, also patient white counts are trending down, patient urine culture is growing Bita albicans discussed with ID pharmacist will start fluconazole IV, the patient will continue to monitor, have PT OT evaluate the patient, patient with history of CHF cardiac echo showed mildly reduced ejection fraction 45 % and grade 1 diastolic dysfunction most 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 (2) Skin infection: Code(s): L08.9 - Local infection of the skin and subcutaneous tissue, unspecified Status: Acute Assessment and Plan: the patient has ulcerated heels and a large eschar tissue to his back. Surgery has been consulted. The patient is also diabetic. Patient was started on antibiotics of cefepime, Flagyl and vancomycin pain . Blood and urine cultures are pending. His white count is 22.6 (3) Acute hypernatremia: Code(s): E87.0 - Hyperosmolality and hypernatremia Status: Acute Assessment and Plan: sodium 148. Most likely the patient is dehydrated because he laid on the floor. recheck Electrolytes l now and continue with IV fluids. (4) Adult failure to thrive: Code(s): R62.7 - Adult failure to thrive Status: Acute Assessment and Plan: The patient is frail. He has been in and out of the [facility]. direct marketing coordinator consult was greatly be appreciated. (5) Uncontrolled diabetes mellitus: Status: Acute Assessment and Plan: Accu-Cheks AC and HS with sliding scale insulin check A1c. (6) Chronic kidney disease, stage IV (severe): Code(s): N18.4 - Chronic kidney disease, stage 4 (severe) Status: Acute Assessment and Plan: The patient is at his baseline. The patient has an elevated CK due to his fall and lying on the floor. Check daily CK. Continue with IV fluids. Subjective Date/time seen: 12/12/22 10:55 Interval history: 12/12/2022 interval history: 72 year old male was found by police department on safety change of his home, unfortunate patient is not able to provide any history or review of symptom patient was and poor hygiene and is concerning bacteremia possible source wounds, and UTI, which is growing Bita albicans, with elevated white count, patient has several wound on his back, patient was seen by surgery service and evaluated the patient patient wounds are along the lumbar spine and high risk of infection to the spine with debride
[2022-12-12 12:15] LABS: Glucose Point of Care 150 mg/dl (65-105)
[2022-12-12 17:13] LABS: Glucose Point of Care 174 mg/dl (65-105)
[2022-12-12] MEDS: INSULIN ASPART (*BKC) 100 UNITS/ML SUB-Q (20:55)
[2022-12-12 21:21] LABS: Glucose Point of Care 214 mg/dl (65-105)
[2022-12-12] MEDS: CEFEPIME 1 GM/NS 50 ML 1 GM/50 ML BAG IVPB (23:06)
[2022-12-13] VITALS (9 sets, daily range): BP systolic 105–126; BP diastolic 51–62; PULSE 79–90; RESP 16–20; TEMP 36.4–36.8; O2SAT 98–100
[2022-12-13] MEDS: metroNIDAZOLE 500 MG/ISO 100ML 500 MG/100 ML BAG 100 MG IVPB ×3 (01:12→17:27)
[2022-12-13] MEDS: VANCOMYCIN 1,000 MG/NS 250 ML 1,000 MG/250 ML BAG 250 MG IVPB (02:40)
[2022-12-13] MEDS: CENTRAL LINE FLUSH 10 ML IV PUSH ×2 (04:34→17:26)
[2022-12-13 04:38] LABS: Hematocrit 27.2 % (42.0-52.0); Hemoglobin 8.5 g/dL (14.0-18.0); Mean Corpuscular HGB Conc 31.3 g/dl (32-36); Mean Corpuscular Hemoglobin 30.7 pg (26-34); Mean Corpuscular Volume 98.2 fl (80-100); Mean Platelet Volume 9.7 fl (7.4-10.4); Platelet Count Result 101 k/mm3 (150-375); Red Blood Count 2.77 M/mm3 (4.6-6.20); Red Cell Distribution Width 14.3 % (11.5-14.5); White Blood Count 14.4 K/mm3 (4.5-10.0)
[2022-12-13 04:48] LABS: Anion Gap 2 mmol/L (8-16); Blood Urea Nitrogen 32 mg/dL (9-20); Calcium 7.5 mg/dL (8.4-10.2); Carbon Dioxide 22 mmol/L (22-30); Chloride 112 mmol/L (98-107); Estimated CRCL calculation 34 ml/min; Estimated Glomerular Filt Rate 40; Glucose 128 mg/dL (65-110); Magnesium 1.6 mg/dL (1.6-2.3); Potassium 3.7 mmol/L (3.4-5.0); Sodium 136 mmol/L (137-145)
[2022-12-13 08:26] LABS: Glucose Point of Care 124 mg/dl (65-105)
[2022-12-13] MEDS: FINASTERIDE 5 MG TABLET PO (09:46)
[2022-12-13] MEDS: DULoxetine HCL 60 MG CAPSULE.DR PO (09:46)
[2022-12-13] MEDS: DOCUSATE SODIUM 100 MG CAPSULE PO (09:46)
[2022-12-13] MEDS: ATORVASTATIN 40 MG TABLET PO (09:46)
[2022-12-13] MEDS: FLUCONAZOLE 100 MG/NACL 50 ML 100 MG/50 ML BTL 50 MG IVPB (09:48)
[2022-12-13 12:15] LABS: Glucose Point of Care 157 mg/dl (65-105)
--- NOTE | 2022-12-13 12:59 | WPDPN ---
Progress Note: A&P Assessment and Plan (1) Urinary tract infection: Code(s): N39.0 - Urinary tract infection, site not specified Status: Acute Assessment and Plan: patient was given a dose of Rocephin and I would change his antibiotics for the skin infection which includes cefepime Flagyl and vancomycin. Urine and blood cultures are pending 12/13/2022 interval history: 72 year old male was found by police department on safety change of his home, unfortunate patient is not able to provide any history or review of symptom patient was and poor hygiene and is concerning bacteremia possible source wounds, and UTI, which is growing Bita albicans, with elevated white count, patient has several wound on his back, patient was seen by surgery service and evaluated the patient patient wounds are along the lumbar spine and high risk of infection to the spine with debridement, patient is being treated with Cefepime, Flagyl and vancomycin, blood culture no growth so far, suspected patient will need IV antibiotics for long-term and unable to provide consent and there is no one to contact and his family or POA, patient in emergency to insert PICC line to continue IV antibiotic, patient clinical symptoms are improved is unable to provide detailed review of symptom however he does try to communicate, also patient white counts are trending down, blood culture no growth so far, patient urine culture is growing Bita albicans discussed with ID pharmacist will start fluconazole IV, if blood culture is not growing any bacteria tomorrow will stop the IV antibiotic and switch over to oral, will continue to monitor, have PT OT evaluate the patient, patient with history of CHF cardiac echo showed mildly reduced ejection fraction 45 % and grade 1 diastolic dysfunction most 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 (2) Skin infection: Code(s): L08.9 - Local infection of the skin and subcutaneous tissue, unspecified Status: Acute Assessment and Plan: the patient has ulcerated heels and a large eschar tissue to his back. Surgery has been consulted. The patient is also diabetic. Patient was started on antibiotics of cefepime, Flagyl and vancomycin pain . Blood and urine cultures are pending. His white count is 22.6 (3) Acute hypernatremia: Code(s): E87.0 - Hyperosmolality and hypernatremia Status: Acute Assessment and Plan: sodium 148. Most likely the patient is dehydrated because he laid on the floor. recheck Electrolytes l now and continue with IV fluids. (4) Adult failure to thrive: Code(s): R62.7 - Adult failure to thrive Status: Acute Assessment and Plan: The patient is frail. He has been in and out of the [facility]. conference services coordinator consult was greatly be appreciated. (5) Uncontrolled diabetes mellitus: Status: Acute Assessment and Plan: Accu-Cheks AC and HS with sliding scale insulin check A1c. (6) Chronic kidney disease, stage IV (severe): Code(s): N18.4 - Chronic kidney disease, stage 4 (severe) Status: Acute Assessment and Plan: The patient is at his baseline. The patient has an elevated CK due to his fall and lying on the floor. Check daily CK. Continue with IV fluids. Subjective Date/time seen: 12/13/22 12:59 Interval history: 12/13/2022 interval history: 72 year old male was found by police department on safety change of his home, unfortunate patient is not able to provide any history or review of symptom patient was and poor hygiene and is concerning bacteremia possible source wounds, and UTI, which is growing Bita albicans, with elevated white count, patient has several wound on his back, patient was seen by surgery serv
[2022-12-13 17:05] LABS: Glucose Point of Care 160 mg/dl (65-105)
[2022-12-13 21:18] LABS: Glucose Point of Care 185 mg/dl (65-105)
[2022-12-13] MEDS: CEFEPIME 1 GM/NS 50 ML 1 GM/50 ML BAG IVPB (23:54)
[2022-12-14] VITALS: PULSE 86
[2022-12-14] MEDS: metroNIDAZOLE 500 MG/ISO 100ML 500 MG/100 ML BAG 100 MG IVPB (02:16)
[2022-12-14 04:00] VITALS: BP 117/55; PULSE 84; PULSE 86; RESP 20; TEMP 36.6; O2SAT 99
[2022-12-14 04:01] LABS: Vancomycin Trough 19.4 ug/mL (10.0-20.0)
[2022-12-14] MEDS: VANCOMYCIN 1,000 MG/NS 250 ML 1,000 MG/250 ML BAG 250 MG IVPB (04:51)
[2022-12-14 05:11] LABS: Hematocrit 27.3 % (42.0-52.0); Hemoglobin 8.5 g/dL (14.0-18.0); Mean Corpuscular HGB Conc 31.1 g/dl (32-36); Mean Corpuscular Hemoglobin 30.1 pg (26-34); Mean Corpuscular Volume 96.8 fl (80-100); Mean Platelet Volume 9.7 fl (7.4-10.4); Platelet Count Result 110 k/mm3 (150-375); Red Blood Count 2.82 M/mm3 (4.6-6.20); Red Cell Distribution Width 14.4 % (11.5-14.5); White Blood Count 12.3 K/mm3 (4.5-10.0)
[2022-12-14 05:19] LABS: Anion Gap 1 mmol/L (8-16); Blood Urea Nitrogen 32 mg/dL (9-20); Calcium 7.3 mg/dL (8.4-10.2); Carbon Dioxide 24 mmol/L (22-30); Chloride 111 mmol/L (98-107); Estimated CRCL calculation 34 ml/min; Estimated Glomerular Filt Rate 40; Glucose 155 mg/dL (65-110); Magnesium 1.5 mg/dL (1.6-2.3); Potassium 3.4 mmol/L (3.4-5.0); Sodium 136 mmol/L (137-145)
--- NOTE | 2022-12-14 08:19 | P.CDI_ITS ---
CDI Query Clarification Request BMI 31.9 Nutritional Diagnostic Statement Severe protein calorie malnutrition related to loss of appetite, increased needs from wounds; as evidence by weight loss 12%/ 6 months; inadequate oral intake <75% needs > 1 month; poorly healing wounds. Please refer to the comprehensive nutrition assessment for further information. Please clarify severity of protein calorie malnutrition if known: * Mild * Moderate * Severe * Other/ Unspecified. <Haven Yun RN - Last Filed: 12/14/22 08:25> Clarified Diagnosis Clarified Diagnosis: Severe protein calorie malnutrition related to loss of appetite, increased needs from wounds; as evidence by weight loss 12%/ 6 months; inadequate oral intake <75% needs > 1 month; poorly healing wounds. <Wesley Guan MD - Last Filed: 12/31/22 15:07>
[2022-12-14 08:43] LABS: Glucose Point of Care 143 mg/dl (65-105)
[2022-12-14] MEDS: MAGNESIUM SULF 2 GM/WATER 50ML 2 GM/50 ML BAG IVPB (09:36)
[2022-12-14] MEDS: DULoxetine HCL 60 MG CAPSULE.DR PO (09:37)
[2022-12-14] MEDS: MAGNESIUM OXIDE 400 MG TABLET PO (09:37)
[2022-12-14] MEDS: DOCUSATE SODIUM 100 MG CAPSULE PO (09:37)
[2022-12-14] MEDS: FINASTERIDE 5 MG TABLET PO (09:37)
[2022-12-14] MEDS: ATORVASTATIN 40 MG TABLET PO (09:37)
[2022-12-14 09:40] VITALS: PULSE 84; RESP 20; O2SAT 99
[2022-12-14] MEDS: FLUCONAZOLE 100 MG/NACL 50 ML 100 MG/50 ML BTL 50 MG IVPB (11:03)
[2022-12-14 12:28] LABS: Glucose Point of Care 170 mg/dl (65-105)
--- NOTE | 2022-12-14 12:56 | PCNFU ---
Nutrition Follow-Up Complete: Severe protein calorie malnutrition related to loss of appetite, increased needs from wounds; as evidenced by weight loss 12%/6 months; inadequate oral intake <75% needs >1 month; poorly healing wounds. Goal: Adequate PO intake at least 75% meals to promote wound healing - Progressing toward goal Pt current nutrition is Consistent carb diabetic diet. Intakes 10-100%. Not drinking Randal. Nutrition recommendation: Continue with nutrition current care plan. Encourage intakes Last recorded weight is 79.9 kg. Bowel Motility: Last BM +1 12/12/22 Labs Reviewed: Hgb 8.5, Hct 27.3, Na 136, GFR 40, BUN 32, Cre 1.7 Meds Noted: Augmentin, diflucan Skin: Unstageable BL heels, spine Additional Notes: Intakes are inconsistent. Overall >50%. Not drinking Randal. Intakes encouraged. Agree with current orders Monitor intakes, weights, labs, plan of care, supplement tolerance, wound healing Follow up every 5 days
--- NOTE | 2022-12-14 13:01 | WPDPN ---
Progress Note: A&P Assessment and Plan (1) Urinary tract infection: Code(s): N39.0 - Urinary tract infection, site not specified Status: Acute Assessment and Plan: patient was given a dose of Rocephin and I would change his antibiotics for the skin infection which includes cefepime Flagyl and vancomycin. Urine and blood cultures are pending 12/14/2022 interval history: 72 year old male was found by police department on safety change of his home, unfortunate patient is not able to provide any history or review of symptom patient was and poor hygiene and is concerning bacteremia possible source wounds, and UTI, which is growing Bita albicans, with elevated white count, patient has several wound on his back, patient was seen by surgery service and evaluated the patient patient wounds are along the lumbar spine and high risk of infection to the spine with debridement, patient is being treated with Cefepime, Flagyl and vancomycin, blood culture no growth so far, suspected patient will need IV antibiotics for long-term and unable to provide consent and there is no one to contact and his family or POA, patient in emergency to insert PICC line to continue IV antibiotic, patient clinical symptoms are improved is unable to provide detailed review of symptom however he does try to communicate, also patient white counts are trending down, blood culture no growth so far, patient urine culture is growing Bita albicans discussed with ID pharmacist started fluconazole IV, today final blood culture is not growing any bacteria patient clinicall symptoms are improving, discussed with ID pharmacist, will stop IV abx and switch to oral, will continue to monitor, have PT OT evaluate the patient, patient has wounds on his back and heals, will have wound nurse evaluate the patient, patient with history of CHF cardiac echo showed mildly reduced ejection fraction 45 % and grade 1 diastolic dysfunction most 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 (2) Skin infection: Code(s): L08.9 - Local infection of the skin and subcutaneous tissue, unspecified Status: Acute Assessment and Plan: the patient has ulcerated heels and a large eschar tissue to his back. Surgery has been consulted. The patient is also diabetic. Patient was started on antibiotics of cefepime, Flagyl and vancomycin pain . Blood and urine cultures are pending. His white count is 22.6 (3) Acute hypernatremia: Code(s): E87.0 - Hyperosmolality and hypernatremia Status: Acute Assessment and Plan: sodium 148. Most likely the patient is dehydrated because he laid on the floor. recheck Electrolytes l now and continue with IV fluids. (4) Adult failure to thrive: Code(s): R62.7 - Adult failure to thrive Status: Acute Assessment and Plan: The patient is frail. He has been in and out of the care home. service coordinator consult was greatly be appreciated. (5) Uncontrolled diabetes mellitus: Status: Acute Assessment and Plan: Accu-Cheks AC and HS with sliding scale insulin check A1c. (6) Chronic kidney disease, stage IV (severe): Code(s): N18.4 - Chronic kidney disease, stage 4 (severe) Status: Acute Assessment and Plan: The patient is at his baseline. The patient has an elevated CK due to his fall and lying on the floor. Check daily CK. Continue with IV fluids. Subjective Date/time seen: 12/14/22 13:01 Interval history: 12/14/2022 interval history: 72 year old male was found by police department on safety change of his home, unfortunate patient is not able to provide any history or review of symptom patient was and poor hygiene and is concerning bacteremia possible source wounds,
[2022-12-14] MEDS: CENTRAL LINE FLUSH 10 ML IV PUSH ×2 (13:31→20:18)
[2022-12-14] MEDS: FUROSEMIDE INJ 40 MG/4 ML VIAL IV PUSH (13:31)
[2022-12-14 14:49] VITALS: BP 125/48; PULSE 83; RESP 18; TEMP 36.2; O2SAT 100
[2022-12-14 17:16] LABS: Glucose Point of Care 203 mg/dl (65-105)
[2022-12-14] MEDS: INSULIN ASPART (*BKC) 100 UNITS/ML SUB-Q (17:31)
[2022-12-14 20:00] VITALS: PULSE 83; RESP 18; O2SAT 100
[2022-12-14] MEDS: AMOXICILLIN/CLAVULANATE K 875-125 MG TAB 1 TABLET PO (20:18)
[2022-12-14 21:07] LABS: Glucose Point of Care 184 mg/dl (65-105)
[2022-12-14 23:08] VITALS: BP 125/64; PULSE 83; RESP 21; TEMP 36.3; O2SAT 100
[2022-12-15] MEDS: CENTRAL LINE FLUSH 10 ML IV PUSH ×2 (05:32→17:11)
[2022-12-15 05:57] LABS: Hematocrit 28.4 % (42.0-52.0); Mean Corpuscular HGB Conc 31.7 g/dl (32-36); Mean Corpuscular Hemoglobin 30.4 pg (26-34); Mean Corpuscular Volume 95.9 fl (80-100); Platelet Count Result 125 k/mm3 (150-375); Red Blood Count 2.96 M/mm3 (4.6-6.20); Red Cell Distribution Width 14.6 % (11.5-14.5); White Blood Count 13.4 K/mm3 (4.5-10.0)
[2022-12-15 06:00] VITALS: BP 136/64; PULSE 86; RESP 21; TEMP 36; O2SAT 100
[2022-12-15 06:06] LABS: Anion Gap 4 mmol/L (8-16); Blood Urea Nitrogen 27 mg/dL (9-20); Calcium 7.2 mg/dL (8.4-10.2); Carbon Dioxide 23 mmol/L (22-30); Chloride 107 mmol/L (98-107); Estimated CRCL calculation 34 ml/min; Estimated Glomerular Filt Rate 40; Glucose 141 mg/dL (65-110); Magnesium 1.9 mg/dL (1.6-2.3); Potassium 3.5 mmol/L (3.4-5.0); Sodium 134 mmol/L (137-145)
[2022-12-15 08:15] LABS: Glucose Point of Care 146 mg/dl (65-105)
--- NOTE | 2022-12-15 08:40 | P.CDI_ITS ---
CDI Query Clarification Request the patient has ulcerated heels and large eschar tissue to his back The patient has bilateral heel pressure ulcers The patient has a very large dry eschar for a pressure ulcer over mid thoracic spine Please clarify for each location mentioned above. * Stage 2 * Stage 3 * Stage 4 * Unstageable Please clarify for each location mentioned above. * Present on admission * Not present on admission * Other/Unknown
--- NOTE | 2022-12-15 08:40 | WPDCDIQUERY2 ---
CDI Query Clarification Request the patient has ulcerated heels and large eschar tissue to his back The patient has bilateral heel pressure ulcers The patient has a very large dry eschar for a pressure ulcer over mid thoracic spine Please clarify for each location mentioned above. Stage 2 Stage 3 Stage 4 Unstageable Please clarify for each location mentioned above. Present on admission Not present on admission Other/Unknown
[2022-12-15] MEDS: DULoxetine HCL 60 MG CAPSULE.DR PO (09:55)
[2022-12-15] MEDS: FINASTERIDE 5 MG TABLET PO (09:55)
[2022-12-15] MEDS: DOCUSATE SODIUM 100 MG CAPSULE PO (09:55)
[2022-12-15] MEDS: MAGNESIUM OXIDE 400 MG TABLET PO (09:55)
[2022-12-15] MEDS: AMOXICILLIN/CLAVULANATE K 875-125 MG TAB 1 TABLET PO ×2 (09:55→20:11)
[2022-12-15] MEDS: ATORVASTATIN 40 MG TABLET PO (09:55)
[2022-12-15] MEDS: FLUCONAZOLE 100 MG TABLET PO (09:55)
[2022-12-15 12:07] LABS: Glucose Point of Care 180 mg/dl (65-105)
--- NOTE | 2022-12-15 13:46 | PM.DS ---
DS: Admitting Diagnosis Discharge Date 12/15/2022 Admitting Diagnosis ?Altered mental status DS: Discharge Diagnosis Discharge Diagnosis (1) Urinary tract infection: Code(s): N39.0 - Urinary tract infection, site not specified Status: Acute Assessment and Plan: patient was given a dose of Rocephin and I would change his antibiotics for the skin infection which includes cefepime Flagyl and vancomycin. Urine and blood cultures are pending 12/14/2022 interval history: 72 year old male was found by police department on safety change of his home, unfortunate patient is not able to provide any history or review of symptom patient was and poor hygiene and is concerning bacteremia possible source wounds, and UTI, which is growing Bita albicans, with elevated white count, patient has several wound on his back, patient was seen by surgery service and evaluated the patient patient wounds are along the lumbar spine and high risk of infection to the spine with debridement, patient is being treated with Cefepime, Flagyl and vancomycin, blood culture no growth so far, suspected patient will need IV antibiotics for long-term and unable to provide consent and there is no one to contact and his family or POA, patient in emergency to insert PICC line to continue IV antibiotic, patient clinical symptoms are improved is unable to provide detailed review of symptom however he does try to communicate, also patient white counts are trending down, blood culture no growth so far, patient urine culture is growing Bita albicans discussed with ID pharmacist started fluconazole IV, today final blood culture is not growing any bacteria patient clinicall symptoms are improving, discussed with ID pharmacist, will stop IV abx and switch to oral, will continue to monitor, have PT OT evaluate the patient, patient has wounds on his back and heals, will have wound nurse evaluate the patient, patient with history of CHF cardiac echo showed mildly reduced ejection fraction 45 % and grade 1 diastolic dysfunction most 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 (2) Skin infection: Code(s): L08.9 - Local infection of the skin and subcutaneous tissue, unspecified Status: Acute Assessment and Plan: the patient has ulcerated heels and a large eschar tissue to his back. Surgery has been consulted. The patient is also diabetic. Patient was started on antibiotics of cefepime, Flagyl and vancomycin pain . Blood and urine cultures are pending. His white count is 22.6 (3) Acute hypernatremia: Code(s): E87.0 - Hyperosmolality and hypernatremia Status: Acute Assessment and Plan: sodium 148. Most likely the patient is dehydrated because he laid on the floor. recheck Electrolytes l now and continue with IV fluids. (4) Adult failure to thrive: Code(s): R62.7 - Adult failure to thrive Status: Acute Assessment and Plan: The patient is frail. He has been in and out of the custodial. lifestyle coordinator consult was greatly be appreciated. (5) Uncontrolled diabetes mellitus: Status: Acute Assessment and Plan: Accu-Cheks AC and HS with sliding scale insulin check A1c. (6) Chronic kidney disease, stage IV (severe): Code(s): N18.4 - Chronic kidney disease, stage 4 (severe) Status: Acute Assessment and Plan: The patient is at his baseline. The patient has an elevated CK due to his fall and lying on the floor. Check daily CK. Continue with IV fluids. DS: Summary Hospital Course Reason for hospitalization: ?Altered mental status Narrative: ?this is a 72-year-old male patient who came to the emergency room after being found on the ground.? The patient has been in and out o
[2022-12-15 14:00] VITALS: BP 122/58; PULSE 81; RESP 19; TEMP 36; O2SAT 100
[2022-12-15 16:55] LABS: Glucose Point of Care 205 mg/dl (65-105)
[2022-12-15] MEDS: INSULIN ASPART (*BKC) 100 UNITS/ML SUB-Q (17:11)
[2022-12-15] MEDS: NEOMYCIN/POLYMYXIN/BACITRACIN OINTMENT PACKET 1 PACKET (17:11)
[2022-12-15 20:00] VITALS: PULSE 80; RESP 18; O2SAT 99
[2022-12-15 20:12] VITALS: BP 112/59; PULSE 80; RESP 18; TEMP 36.8; O2SAT 99
--- NOTE | 2022-12-15 20:50 | PC.NURSE ---
Discharged per Suhail to [facility] Picc line Mi'ed , Report called by Day shift to [facility] and evening meds given prior to discharge.
[2022-12-15 21:03] LABS: Glucose Point of Care 261 mg/dl (65-105)
== END 2022-12-15 20:30 | DRG 727 ==
LOC: ANHED 16:14 → ANHIMU 16:54 → ANH3MED 12-11 16:55
PROVIDERS: Nurse Practitioner; Admitting Provider Internal Medicine; Emergency Provider Emergency Medicine; PCP Physician Assistant; Visit Provider Family Medicine
DX: B37.41 Candidal cystitis and urethritis (principal); E43 Unspecified severe protein-calorie malnutrition; I50.43 Acute on chronic combined systolic (congestive) and diastolic (congestive) heart failure; I13.0 Hypertensive heart and chronic kidney disease with heart failure and stage 1 through stage 4 chronic kidney disease, or unspecified chronic kidney disease; N18.4 Chronic kidney disease, stage 4 (severe); E87.0 Hyperosmolality and hypernatremia; E11.65 Type 2 diabetes mellitus with hyperglycemia; E11.42 Type 2 diabetes mellitus with diabetic polyneuropathy; E86.0 Dehydration; E11.22 Type 2 diabetes mellitus with diabetic chronic kidney disease; E78.00 Pure hypercholesterolemia, unspecified; H91.90 Unspecified hearing loss, unspecified ear; I25.10 Atherosclerotic heart disease of native coronary artery without angina pectoris; K21.9 Gastro-esophageal reflux disease without esophagitis; L89.620 Pressure ulcer of left heel, unstageable; L89.610 Pressure ulcer of right heel, unstageable; L89.100 Pressure ulcer of unspecified part of back, unstageable; R62.7 Adult failure to thrive; Z95.4 Presence of other heart-valve replacement; Z86.73 Personal history of transient ischemic attack (TIA), and cerebral infarction without residual deficits; Z95.1 Presence of aortocoronary bypass graft; Z98.41 Cataract extraction status, right eye; Z98.42 Cataract extraction status, left eye; Z96.1 Presence of intraocular lens; Z79.4 Long term (current) use of insulin; Z68.20 Body mass index [BMI] 20.0-20.9, adult
CPT/HCPCS: 36415; 36569; 70450; 72072; 80048; 80053; 80202; 81001; 82550; 82948; 83036; 83605; 83735; 84145; 84443; 85025; 85027; 85055; 85610; 85652; 85730; 86140; 87040; 87086; 87088; 87106; 93005; 93308; 96361; 96365; 96366; 96367; 97110; 97161; 97165; 97530; 97535; 99285; A9270; C1751; G0378; J0692; J0696; J1450; J1815; J1940; J3370; J3475; J7030